=== PATIENT | male | born 1960 | race Caucasian/White ===

== ENCOUNTER 2024-02-21 10:26 | Outpatient (OUT) | payer OTHER, SELFPAY ==
--- NOTE | 2024-02-21 10:37 | ECG_ITS ---
[facility] Test Date: 2024-02-21 Pat Name: HANNAH CHAMBERS Department: Room: - Gender: Male Housing Inspector: : 1960 Requested By: PATIENCE FUENTES Order Number: [id number] Reading MD: PATIENCE FUENTES Measurements Intervals [place] Rate: 102 P: CT: QRS: 49 QRSD: 121 T: 216 QT: 360 QTc: 469 Interpretive Statements ATRIAL FIBRILLATION WITH RAPID VENTRICULAR RESPONSE Chronic ST/T wave changes anterolateral leads. Electronically Signed On 02-21-2024 20:55:17 EST by PATIENCE FUENTES
== END 2024-02-21 10:27 | disposition home or self-care (01) ==
LOC: CARD 10:30
PROVIDERS: PCP Internal Medicine; Visit Provider Internal Medicine
DX: I49.9 Cardiac arrhythmia, unspecified (principal)
CPT/HCPCS: 93005

== ENCOUNTER 2024-09-19 13:36 | Outpatient (OUT) | payer OTHER, SELFPAY ==
--- OUTSIDE RECORDS SUMMARY | 2024-09-19 13:38 | XMS_ITS | Clinical Summary ---
Author Organization [facility] Address [address] [place] [address] Care Team Providers Care Shearer Helper Name Role Phone Julio Ceballos DO Primary Care Provider [phone] Allergies No known active allergies Medications amLODIPine (Norvasc) 5 MG tablet 9 Active metoprolol succinate XL (Toprol-XL) 50 MG 24 hr tablet Take 50 mg by mouth in the morning and 50 mg before bedtime. 3 Active pravastatin (Pravachol) 40 MG tablet Take 40 mg by mouth at bedtime. 3 Active ciclopirox (Penlac) 8 % solutionIndicat ions:Onychomyco sis of Toenails Apply topically at bedtime Applied daily to affected nails. Remove once a week with alcohol swab 10 mL 1 5 10/05/19 25 Active Active Problems Problem Noted Date Diagnosed Date Glaucoma suspect of both eyes 03/16/2023 Age-related nuclear cataract of both eyes 2023 Dry eyes 03/16/2023 Encounters Date Type Department Care Team Description 09/04/2024 3:10 PM EDT Office Visit [facility] [address] [place] [address] Irving Loyola, DPM FACFAS Ingrowing nail, left great toe (Primary Dx); Abscess of great toenail of left foot; Abscess of great toenail of right foot; Ingrowing nail, right great toe; Tinea unguium 09/04/2024 Abstract [facility] [address] [place] [id number] Irving Loyola R, DPM FACFAS 09/04/2024 Bamboo flowsheet [facility] [address] [place] [address] DolLito hustoneem R, DPM FACFAS from Last 3 Months Family History Medical History Relation Name Comments Melanoma Neg Hx Multiple myeloma Neg Hx Social History Tobacco Use Types Packs/Day Years Used Date Smoking Tobacco: Never Smokeless Tobacco: Never Tobacco Cessation:Counseling Given: Not Answered Sex and Gender Information Value Date Recorded Sex Assigned at Not on file Legal Sex Male 8:35 PM EDT Gender Identity Not on file Sexual Orientation Not on file Last Filed Vital Signs Vital Sign Reading Time Taken Comments Blood Pressure - - Pulse - - Temperature - - Respiratory Rate - - Oxygen Saturation - - Inhaled Oxygen Concentration - - Weight 116 kg (255 lb) 09/04/2024 3:10 PM EDT Height 182.9 cm (6') 09/04/2024 3:10 PM EDT Body Mass Index 34.58 09/04/2024 3:10 PM EDT Plan of Treatment Upcoming Encounters Date Type Department Care Team (Late st Contact Info) Description 09/25/2024 3:30 PM EDT Office Visit [facility] [address] [place] [phone] Irving Loyola R, DPM FACFAS [address] [place] [address] 05/14/2025 4:05 PM EDT Office Visit [facility] [address] [place] [address] Minoo Bronson APRN-NOTCHER [address] [place] [address] Health Maintenance Due Date Last Done Comments CT Colonography 1960 Colonoscopy 1960 Colorectal Cancer Screening 1960 FIT-DNA 1960 FIT 1960 FOBT 1960 Sigmoidoscopy 1960 Influenza Vaccine (#1) 2024 3, 11/09/2021, 12/31/2020, Additional history exists Insurance [employer] Care Teams Shearer Helper Relationship Specialty Start Date End Date Julio Ceballos DO [address] [facility] [place] [address] PCP - General Internal Medicine 09/04/24
--- OUTSIDE RECORDS SUMMARY | 2024-09-19 13:38 | XMS_ITS | Clinical Summary ---
Author Organization [facility] Address [address] [place] [address] Phone Care Team Providers Care Automatic Pad Making Machine Operator Name Role Phone Julio Ceballos DO Primary Care Provider [phone] Fozia Cornelius MD Unavailable Allergies No known active allergies Medications pravastatin (Pravachol) 40 mg tabletIndications: Mixed hyperlipidemia Take 1 tablet (40 mg) by mouth once daily at bedtime. 90 tablet 3 03/13/19 25 026 Active apixaban (Eliquis) 5 mg tabletIndications: Paroxysmal atrial fibrillation (Multi) Take 1 tablet (5 mg) by mouth 2 times a day for 21 days. 42 tablet 03/25/19 25 Active amLODIPine (Norvasc) 10 mg tabletIndications: Essential hypertension Take 1 tablet (10 mg) by mouth once daily. 90 tablet 3 03/25/19 25 026 Active levothyroxine (Synthroid, Levoxyl) 25 mcg tabletIndications: Hypothyroidism Take 1 tablet (25 mcg) by mouth early in the morning.. Take on an empty stomach at the same time each day, either 30 to 60 minutes prior to breakfast 30 tablet 1 05/10/19 25 Active dofetilide (Tikosyn) 250 mcg capsuleIndications :Atrial fibrillation, persistent (Multi) Take 1 capsule (250 mcg) by mouth 2 times a day. 180 capsule 3 05/24/19 25 026 Active metoprolol succinate XL (Toprol-XL) 50 mg 24 hr tabletIndications: Paroxysmal atrial fibrillation (Multi),Cardiomyop athy, hypertrophic (Multi) Take 1 tablet (50 mg) by mouth once daily. Do not crush or chew. 08/27/19 25 026 Active aspirin 81 mg EC tablet Take 1 tablet (81 mg) by mouth once daily. 025 Discontin ued(Thera py completed ) metoprolol succinate XL (Toprol-XL) 50 mg 24 hr tabletIndications: Essential hypertension Take 1 tablet (50 mg) by mouth 2 times a day. 180 tablet 3 03/13/19 25 025 Discontin ued(Dose adjustmen t) Active Problems Problem Noted Date Diagnosed Date BMI 35.0-35.9,adult 05/23/2024 High risk medication use 05/19/2024 Encounter for medication review and counseling 0 03/25/2024 Encounter to discuss treatment options Encounter to establish care with new doctor 03/15 Atrial fibrillation, persistent (Multi) 03/25/19 A-fib (Multi) 03/13/2024 Never smoked tobacco 03/13/2024 Myocardial infarction (Multi) 04/04/2023 Lightheadedness 04/04/2023 Drug-induced erectile dysfunction 04/04/2023 Chest pain 04/04/2023 Glaucoma suspect of both eyes 03/16/2023 Age-related nuclear cataract of both eyes 2023 Cardiomyopathy, hypertrophic (Multi) 03/09/2023 Essential hypertension 02/09/2023 Hyperlipidemia 02/09/2023 LVH (left ventricular hypertrophy) 02/09/2023 Resolved Problems Problem Noted Date Diagnosed Date Resolved Date Obesity (BMI 30.0-34.9) 03/09/202308/12 Encounters Date Type Department Care Team Description 08/26/2024 3:00 PM EDT [facility] [address] [place] [address] Nomi Lutz, DO Paroxysmal atrial fibrillation (Multi); Cardiomyopathy, hypertrophic (Multi); High risk medication use; BMI 35.0-35.9,adult; Never smoked tobacco 08/26/2024 Travel 07/30/2024 Patient Outreach [facility] [address] [place] [address] Nery AndersonJAGUAR 07/03/2024 Patient Outreach [facility] [address] [place] [address] Nery Anderson LPN from Last 3 Months Immunizations Immunization Administration Dates Next Due Flu vaccine (IIV4), preserva tive free *Check age/dose* 11/15/2022,12/31/2020 Flu vaccine, quadrivalent, n o egg protein, age 6 month or greater (FLUCELVAX) 11/09/2021 Influenza, Split (incl. josé manuel fied surface antigen) 11/09/2021,12/11/2019,02/19/2019 Influenza, Unspecified 02/12/2019 Influenza, injectable, quadrivalent 12/11/2019,0 02/19/2019 Zoster vaccine, recombinant, adult (SHINGRIX) 01/12/2020 Zoster, live 01/12/2020 Family History Medical History Relation Name Comments CABG Father Diabetes Father Hypertension Father malignant neoplasm of prostate Father Atrial fibrillation Mother Heart disease Mother Relation Name Status Comments Father Mother Social History Tobacco Use Types Packs/Day Years Used Date Smoking Tobacco: Never Smokeless Tobacco: Never Tobacco Cessation:Counseling Given: Yes Alcohol Use Standard Drinks/Week Comments Yes 0 (1 standard drink = 0.6 oz pur e alcohol) [facility] Utilities Answer Date Recorded In the past 12 months has e [employer], gas, oil, or water [employer] threatened to shut off services in your home? No 05/05/2024 Humiliation, Afraid, Rape, and Kick questionnair e Answer Date Recorded Within the last year, have y ou been afraid of your partner or ex-partner? No 05/05/2024 Within the last year, have y ou been humiliated or emotionally abused in other ways by your partner or ex-partner? No Within the last year, have y ou been kicked, hit, slapped, or otherwise physically hurt by your partner or ex-partner? No 05/05/2024 Within the last year, have y ou been raped or forced to have any kind of sexual activity by your partner or ex-partner? No 05/05/2024 AUDIT-C Answer Date Recorded Q1: How often do you have a drink containing alcohol? Never 05/05/2024 Q2: How many drinks containi ng alcohol do you have on a typical day when you are drinking? Patient does not drink Q3: How often do you have si x or more drinks on one occasion? Never 05/05/2024 Overall Financial Resource Strain (CARDIA) Answe r Date Recorded How hard is it for you to pa y for the very basics like food, housing, medical care, and heating? Not hard at all 05/05/2024 PHQ-2 Answer Date Recorded Patient Health Questionnaire-2 Score 0 05/05/2024 Hunger Vital Sign Answer Date Recorded Within the past 12 months, y ou worried that your food would run out before you got the money to buy more. Never true 05/06/19 25 Within the past 12 months, t he food you bought just didn't last and you didn't have money to get more. Never true 05/05/2024 PRAPARE - Transportation Answer Date Re corded In the past 12 months, has l ack of transportation kept you from medical appointments or from getting medications? No 04/13 In the past 12 months, has l ack of transportation kept you from meetings, work, or from getting things needed for daily living? No 05/05/2024 Housing Stability Vital Sign Answer Cody e Recorded In the last 12 months, was t here a time when you were not able to pay the mortgage or rent on time? No 05/05/2024 In the past 12 months, how m any times have you moved where you were living? 1 05/05/2024 At any time in the past 12 m [facility], were you homeless or living in a [facility] (including now)? No 05/05/2024 Sex and Gender Information Value Date Recorded Sex Assigned at Not on file Legal Sex Male 2:36 AM EST Gender Identity Not on file Sexual Orientation Not on file Last Filed Vital Signs Vital Sign Reading Time Taken Comments Blood Pressure 118/80 08/26/2024 3:33 PM EDT Pulse 50 08/26/2024 3:33 PM EDT Temperature 36.5 C (97.7 F) 05/08/2024 10:49 AM EDT Respiratory Rate 18 05/08/2024 10:49 AM EDT Oxygen Saturation 98% 05/08/2024 10:49 AM EDT Inhaled Oxygen Concentration - - Weight 119 kg (262 lb) 08/26/2024 3:33 PM EDT Height 182.9 cm (6') 08/26/2024 3:33 PM EDT Body Mass Index 35.53 08/26/2024 3:33 PM EDT Plan of Treatment Upcoming Encounters Date Type Department Care Team (Late st Contact Info) Description 09/23/2024 2:40 PM EDT Office Visit [facility] [address] [facility] [address] [place] [address] [place] [address] [place] [address] 03/04/2025 8:00 AM EST Office Visit [facility] [address] [facility] [address] [place] [address] [address] Cadet, SENIOR SALESFORCE DEVELOPER-GI PHYSICIAN [address] [facility] [address] [place] [address] 05/19/2025 1:00 PM EDT Office Visit [facility] [address] [facility] [address] [place] [address] Fozia Cornelius MD [address] [facility] Office [address] [place] [address] Health Maintenance Due Date Last Done Comments CT Colonography 1960 Colonoscopy 1960 Colorectal Cancer Screening 1962 FIT-DNA (Cologuard) 1960 FIT 1960 HIV Screening 1960 Lipid Panel 1960 Sigmoidoscopy 1962 Hepatitis C Screening 1980 Pneumococcal Vaccine (1 of 2 - PCV) 1981 DTaP/Tdap/Td Vaccines (1 - Tdap) 1984 PSA Prostate Cancer Screening 2012 MMR Vaccines (1 of 1 - Standard series) 02/09/2020 Zoster Vaccines (2 of 2) 03/08/2020 01/12/2020, 12/15 RSV High Risk: (Elderly (60+) or Population) (1 - Risk 60-74 years 1-dose series) 2022 COVID-19 Vaccine ( season) 2023 01/29/2021, 05/22/2020, 04/24/2020 Yearly Adult Physical 11/17/2023 11/15/2022 Influenza Vaccine (#1) 2024 , 11/09/2021, 11/09/2021, Additional history exists TSH Level 05/05/2025 05/05/2024 Diabetes Screening 05/08/2025 05/08/2024, 0 05/07/2024, 05/06/2024, Additional history exists HIB Vaccines Aged Out No longer eligi ble based on patient's age to complete this topic HPV Vaccines Aged Out No longer eligi ble based on patient's age to complete this topic Hepatitis A Vaccines Aged Out No long er eligible based on patient's age to complete this topic Hepatitis B Vaccines Aged Out No long er eligible based on patient's age to complete this topic IPV Vaccines Aged Out No longer eligi ble based on patient's age to complete this topic Meningococcal Vaccine Aged Out No antonella perez eligible based on patient's age to complete this topic Rotavirus Vaccines Aged Out No longer eligible based on patient's age to complete this topic Procedures Procedure Name Priority Date/Time Associated Diagnosis Comments ECG 12-LEAD Routine 08/26/2024 3:00 PM EDT Paroxysmal atrial fibrillation (Multi) BASIC METABOLIC PANEL Routine 05/08/2024 3:26 AM EDT TSH WITH REFLEX TO FREE T4 IF ABNORMAL STAT 05/05/2024 7:51 AM EDT from Last 3 Months or Most Recently Relevant to Health Maintenance Results * ECG 12 Lead (08/26/2024 3:00 PM EDT) Narrative [facility]ACS - 08/26/2024 4:47 PM EDT Sinus bradycardia, anterolateral T wave inversions, abnormal ECG Nomi Lutz DO ECG ORDERABLES Final Resul t CPACS * Basic metabolic panel (05/08/2024 3:26 AM EDT) Glucose 92 74 - 99 mg/dL LAB CHEMISTRY METHOD 05/08/2024 4:34 AM EDT [facility] Sodium 138 136 - 145 mmol/L LAB CHEMISTRY METHOD 05/08/2024 4:34 AM EDT [facility] Potassium 3.9 3.5 - 5.3 mmol/L LAB CHEMISTRY METHOD 05/08/2024 4:34 AM EDT [facility] Chloride 105 98 - 107 mmol/L LAB CHEMISTRY METHOD 05/08/2024 4:34 AM EDT [facility] Bicarbonate 25 21 - 32 mmol/L LAB CHEMISTRY METHOD 05/08/2024 4:34 AM EDT [facility] Anion Gap 12 10 - 20 mmol/L LAB CHEMISTRY METHOD 05/08/2024 4:34 AM EDT [facility] Urea Nitrogen 18 6 - 23 mg/dL LAB CHEMISTRY METHOD 05/08/2024 4:34 AM EDT [facility] Creatinine 0.90 0.50 - 1.30 mg/dL LAB CHEMISTRY METHOD 05/08/2024 4:34 AM EDT [facility] eGFR >90 >60 mL/min/1.7 3m*2 LAB CHEMISTRY METHOD 05/08/2024 4:34 AM EDT [facility] Comment: Calculations of estimated GFR are performed using the 2020 CKD-EPI Study Refit equation without the race variable for the IDMS-Traceable creatinine methods. https://jasn.asnjournals.org/content/early//ASN.3412942873 Calcium 9.2 8.6 - 10.3 mg/dL LAB CHEMISTRY METHOD 05/08/2024 4:34 AM EDT [facility] Blood Venous blood specimen / Unknown Venipuncture / Unknown 05/08/2024 3:26 AM EDT 05/08/2024 4:07 AM EDT Aggie Kline APRN-GI PHYSICIAN LAB BLOOD ORDERABLES Final R esult [facility] [address] [place] [address] * (ABNORMAL) TSH with reflex to Free T4 if abnormal (05/05/2024 7:51 AM EDT) Thyroid Stimulating Hormone 5.84(H) 0.44 - 3.98 mIU/L LAB IMMUNOASSAY METHOD 05/05/2024 8:50 AM EDT [facility] Blood Venous blood specimen / Unknown Venipuncture / Unknown 05/05/2024 7:51 AM EDT 05/05/2024 8:12 AM EDT Narrative [facility] - 05/05/2024 8:50 AM EDT TSH testing is performed using different testing methodology at [facility] than at other legacy [facility]. Direct result comparisons should only be made within the same method. Aggie Kline APRN-GI PHYSICIAN LAB BLOOD ORDERABLES Final R esult [facility] [address] [place] [address] from Last 3 Months or Most Recently Relevant to Health Maintenance Insurance [facility] [facility] [employer] Advance Directives For more information, please contact: [phone] (Available ) * Full Code (Latest Code Status on File) Date Activated Date Inactivated Comments 05/05/2024 9:08 AM Question Answer Comments Plan of Care: Code Status Discussion Completed Decision Maker: Patient Care Teams Automatic Pad Making Machine Operator Relationship Specialty Start Date End Date Julio Ceballos DO [address] [place] [address] PCP - General Internal Medicine 09/24/23 Fozia Cornelius MD [address] [facility] [address] [place], [place] [id number] Rx Specialist Electrophysiology 03/13/24
--- OUTSIDE RECORDS SUMMARY | 2024-09-19 13:38 | XMS_ITS | Encounter Summary ---
Author Organization [facility] Address [address] [place] [address] Care Team Providers Care Cold Meat Chef Name Role Phone Julio Ceballos DO Primary Care Provider [phone] Encounter Details Date Type Department Care Team (Late st Contact Info) Description 09/04/2024 Abstract [facility] [address] [place] [address] Irving Loyola, DPM FACFAS [address] [place] [address] Social History Tobacco Use Types Packs/Day Years Used Date Smoking Tobacco: Never Smokeless Tobacco: Never Sex and Gender Information Value Date Recorded Sex Assigned at Not on file Legal Sex Male 8:35 PM EDT Gender Identity Not on file Sexual Orientation Not on file documented as of this encounter Plan of Treatment Upcoming Encounters Date Type Department Care Team (Late st Contact Info) Description 09/25/2024 3:30 PM EDT Office Visit [facility] [address] [place] [address] Irving Loyola R, DPM FACFAS [address] [place] [address] 05/14/2025 4:05 PM EDT [facility] [address] [place] [address] Minoo Bronson, HAMPER MAKER MACHINE-AIR CONDITIONING MECHANIC [address] [place] [address] documented as of this encounter Visit Diagnoses Not on filedocumented in this encounter Care Teams Cold Meat Chef Relationship Specialty Start Date End Date Julio Ceballos DO [address] [facility] [place] [address] PCP - General Internal Medicine 09/04/24 documented as of this encounter
[2024-09-19 14:40] LABS: Thyroid Stimulating Hormone 2.372 uIU/mL (0.358-3.740)
== END 2024-09-19 13:37 | disposition home or self-care (01) ==
LOC: LAB 13:36
PROVIDERS: PCP Internal Medicine; Visit Provider Internal Medicine
DX: T46.2X1A Poisoning by other antidysrhythmic drugs, accidental (unintentional), initial encounter (principal); E03.2 Hypothyroidism due to medicaments and other exogenous substances
CPT/HCPCS: 36415; 84439; 84443

== ENCOUNTER 2024-12-15 08:01 | Outpatient (OUT) | payer OTHER, SELFPAY ==
--- OUTSIDE RECORDS SUMMARY | 2024-12-05 19:01 | XMS_ITS | Continuity of Care Document ---
Author Organization [facility] Address [address] [place] [address] Phone Care Team Providers Care Manager Bakery Name Role Phone Tucker Julio LION Primary Care Provider [phone] Julio Ceballos DO Attending Provider [phone] Care Teams Patient Care Team Team Status: Active Member Role/Relationship Status Dates Julio Ceballos DO Primary Care Provider Active Patient Care Team Team Status: Active Member Role/Relationship Status Dates Julio Ceballos DO Primary Care Provider Active Start: September 19, 2024 Patience Florence ProviderActiveStart: September 19, 2024 Patient Care Team Team Status: Inactive Member Role/Relationship Status Dates Julio Ceballos DO Primary Care Provider Active Start: December 05, 2024 End: December 05Patience Alejandra ProviderActiveStart: December 05, 2024 End: December 05, 2024 Chief Complaint and Reason for Visit Chief Complaint Admit Date Foot Pain December 05, 2024 3 :42pm Reason for Visit Admit Date Chronic anticoagulation December 05 3:42pm Metatarsalgia of left foot December 05, 2024 3:42pm Allergies, Adverse Reactions, Alerts Allergen Type Severity Reaction Last Updated Verified Status No Known Allergies Allergy Unknown December 05, 2024 3:46pmYesActive Social History Smoking Status Status Start Date End Date Date of Observa tion Never smoked tobacco (finding) August 06, 2018 3:36pm Observation Status Observation Response Date of Response Legal Sex Male (finding) Sex Assigned At BirthMaleApril 1960 Family History Relationship Condition Age at Onset Recorded Date/T yohana father History of coronary artery bypass surgery Unknown fatherDeceasedUnknownHeart diseaseUnknown Problems Active Problems Problem Diagnosis/Recorded Date Onset Date Status C omments 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, 2024 1: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 Unk nown Active Screening PSA (prostate specific antigen)January 27, 2024 1:59pmUnknownActive PSA: 2.49 - 07/2019, 1.95 - 07/2020, 2.4 - 10/2021, 2.97 - 10/2022, 3.06 - 12/2023 Acute sinusitisJanuary 2024 3:37pmUnknownActiveAtrial fibrillationJanuary 2024 11:50pmUnknownActiveDCCV -Chronic anticoagulationOctober 2024 4:30pmUnknownActiveWellness examinationDecember 2023 1:57pmUnknownActive HypercholesterolemiaDecember 2023 2:04pmUnknownActiveHypertensionJune 2018 1:55amUnknownActiveCardiomyopathyJanuary 2024 11:48pmUnknown ActiveEcho: LVEF 75%, ADRIEN, RVSP 36 (apical hypertrophic cardiomyopathy) - 02/2023,Cardiac MR: nonobstructive hypertrophic cardiomyopathy - 03/2023,Stress Echo: no ischemia, no increased gradient - 03/2023Inactive/Resolved Problems Problem Diagnosis/Recorded Date Onset Date Status C omments Hyperlipidemia August 06, 2018 1:56am Unknown Resolved Non-STEMI (non-ST elevated myocardial infarction)August 06, 2018 3:05pmUnknown Resolved Medications Medication Status Dose Units Route Directions Qty Days Refills S tart Date Stop Date End Date Reason(s) Instructions Adherence Azithromycin 250 mg tablet Discontinued 250 MG PO .COMPLEX 6 5 0 Ja joseyary 2024 1:54pm June 26, 2024 3:10pm2 tabs on first day followed by 1 tab on days 2-5 Levothyroxine 25 mcg vyyiyqnYglmdwqctcqb77CRFLMFwbjaXxp 2024 12:00amMay 2024 11:01amApixaban (Eliquis) 5 mg bggqfiQbeukc6LFKMNivbm dailyMa2024 12:00amComplies with drug therapyDofetilide 250 mcg lvelhrpBvfaae196KIVKT Twice dailyMay 2024 12:00amComplies with drug therapyAmlodipine 10 mg rkblyhCsftgxoyrzga91RXMHYzcyv21272Igou 2024 5:32pmAugust 2024 4:18pm Pravastatin 40 mg qfrmcgGnpmeu34IXXFAcoppqp08836Zphm 2024 5:33pmComplies with drug therapyMetoprolol Succinate 50 mg tablet extended release 24 hrActive 63DWUORxzrk973813Qiid 2024 8:38amComplies with drug therapyAmlodipine 10 mg tabletActive0.ROUTE.BFEBGIS649Mvtsvl 2024 4:18pmTAKE 1 TABLET DAILY Complies with drug therapyPravastatin (Pravachol) 40 mg ScbinmSmffdqhjusak48HACE [facility]timeSelect [facility] 2018 12:00amJanuary 2024 11:07amBenazepril (Lotensin) 10 mg GekfzhIpdkuzhoatqp42EIPWEncomVzjc 2018 12:00amJune 2018 6:25pm Metoprolol Succinate (Toprol Xl) 25 mg tablet extended release 24 hrDiscontinued 31JSCMOublp750186Kgxk 2018 12:00amJuly 2024 8:38amAspirin 81 mg Tablet,Delayed Release (Dr/Ec)Uhrmzm22HDDEMbuik680Cago 2018 12:00am Complies with drug therapyAzithromycin 250 mg frqhvmTjhqgvwznmoa816OTKB.COMPLEX6 50January 2024 1:00amJanuary 2024 1:54pm2 tabs on first day followed by 1 tab on days 2-5Amlodipine 10 mg bfhgrxNqexpajslgyl80SVGLTvdooVtx 2024 12:00amJune 2024 5:33pmLevothyroxine 25 mcg jfdjbjXzttjgxpadkw09BRDQNYmkig 54876Hok 2024 12:00amMay 2024 11:03amLevothyroxine 25 mcg tablet Udjrlx54SHQHNRjnuj68589Ffg 2024 11:02amComplies with drug therapy Pravastatin 40 mg fqwvxlWezqnllinbzq93DIZJYmijlya20948Ombvkxr 2024 11:06am July 23, 2024 5:33pmPrednisone 20 mg vxwqhiRuzdhs65YJQMDlazr qoujb7984Caufovc 2024 12:00amComplies with drug therapy Immunizations Immunization Event Date Not Given Reason Dose Number Radio Director Lot Number Reason(s) Given Vaccine Information Statement (VIS) Detail Administration Location influenza, unspecified formulation February 19, 2019 influenza, unspecified formulationOctober 2019influenza, unspecified formulationNovember 2020influenza, unspecified formulationSeptember 2021Quadrivalent InfluenzaOctober 2022Shingles (Zoster)January 12, 2020 Relevant Diagnostic Tests and/or Laboratory Data Laboratory Results Test Collection Date/Time Result Date/Time Result Interpretation Reference Range Result Comment Performing Site Free Thyroxine September 19, 2024 1:44pm September 19, 2024 1: 44pm 1.01 ng/dL 0.76-1.46Thyroid Stimulating Hormone 3rd GenAugus2024 1:44pmAugust 2024 1:44pm2.372 u[iU]/mL0.358-3.740 Vital Signs Vital Reading Result Reference Range Collection Date/Time Height 72 [in_i] December 05, 2024 3:85mwOsrsnu075.74 kgOctflag[facility] 2024 3:45pmHeart Rate93 /sxj28-430Snsfarq 2024 3:45pmBP Spmkgbxa951 mm[Hg]100-140Octflag[facility] 2024 3:45pmBP Ojnhqoebc42 mm[Hg]60-100Octflaget [facility] hospital 2024 3:45pmBMI (Body Mass Index)35.8 kg/g0Yeobxvd 2024 3:45pm Advance Directives Advance Directive Response Recorded Date/ Time Advance Directives No August 06 1:02am Insurance Providers Guarantor Cristian Feliciano Address [address] [facility] [address]Rmrucbd Info.Home Phone: Coverage Status Update:2024 Payer Group Member ID Coverage Type Subscriber Relationship to Subscriber Effective Date Expiration Date MMO Id: [id number] [facility] Id: [id number] [address] [facility] [address] Home Phone: [facility] [id number] [facility] Id: [id number] [address] [facility] [address] [facility] Phone: [facility]: [id number] Encounters Encounter Location(s) Arrival/Admit Date Discharge/Departure Date Discharge/Departure Disposition Provider(s) Non-patient / Non-visit -[facility] Professional Slick Altamirano ust 2024 1:44pm KANNAN Florenceeparted Physician/Provider Office [facility] 20[facility] 3:42pmOctober 2024 11:59pmDischarged to home care or self care (routine discharge)Julio Ceballos , Recent Diagnosis Onset Date Admit Date Chronic anticoagulation Unknown December 05, 2024 3:42pm Metatarsalgia of left foot Unknown Octob er 2024 3:42pm Assessments Diagnosis Onset Date Resolution Status Admit Date Chronic anticoagulation acuteOctober 2024 3:42pmMetatarsalgia of left footnoneactiveOctober 2024 3:42pm Plan of Treatment Author [facility]os [facility] 2024 4:33pmAvoid use of NSAIDs, due to increased bleeding risk w/ ongoing Eliquis use. Instructed on stretching exercises. Instructed to always wear shoes. Instructed to use Voltaren Gel and Tylenol. Prescribed Prednisone bid x 5 days. - take w/ food Update office next week Future Tests Future scheduled test information is unavailable Pending Tests Pending diagnostic test information is unavailable Future Visits Future appointment information is unavailable Future Procedures Future procedure information is unavailable Future Medications Future medication information is unavailable Patient Instructions Patient instructions are unavailable
--- OUTSIDE RECORDS SUMMARY | 2024-12-15 08:07 | XMS_ITS | Clinical Summary ---
Author Organization [facility] Address [address] [place] [address] Phone Care Team Providers Care Director Of Restaurant Operations Name Role Phone Tucker Julio Ciara LION Primary Care Provider [phone] Fozia Cornelius MD Unavailable Allergies No known active allergies Medications MedicationSigDispense QuantityRefillsLast FilledStart DateEnd DateStatus pravastatin (Pravachol) 40 mg tablet Indications:Mixed hyperlipidemiaTake 1 tablet (40 mg) by mouth once daily at bedtime. 90 tablet 501/6Active apixaban (Eliquis) 5 mg tablet Indications:Paroxysmal atrial fibrillation (Multi)Take 1 tablet (5 mg) by mouth 2 times a day for 21 days. 42 tablet 5Active amLODIPine (Norvasc) 10 mg tablet Indications:Essential hypertensionTake 1 tablet (10 mg) by mouth once daily. 90 tablet 502/6Active levothyroxine (Synthroid, Levoxyl) 25 mcg tablet Indications:HypothyroidismTake 1 tablet (25 mcg) by mouth early in the morning.. Take on an empty stomach at the same time each day, either 30 to 60 minutes prior to breakfast 30 tablet 5Active dofetilide (Tikosyn) 250 mcg capsule Indications:Atrial fibrillation, persistent (Multi)Take 1 capsule (250 mcg) by mouth 2 times a day. 180 capsule 504/6Active metoprolol succinate XL (Toprol-XL) 50 mg 24 hr tablet Indications:Paroxysmal atrial fibrillation (Multi),Cardiomyopathy, hypertrophic (Multi)Take 1 tablet (50 mg) by mouth once daily. Do not crush or chew. 90 tablet 3095010/14/2025ctive Active Problems ProblemNoted DateDiagnosed DateBMI 35.0-35.9,adult05/23/2024High risk medication use05/19/2024Encounter for medication review and jzncdpipyw88/11/2025Encounter to discuss treatment hirrwom9303/25/2024Encounter to establish care with new bdqifp0903/25/2024trial fibrillation, wyqdujcbwj30/11/2025-fib03/13/2024Never smoked kkzjxvn9703/13/2024Myocardial cuklvmwufa01/21/9145Ikvjrcefdqmdpvu46/21/2024 Drug-induced erectile azhjpjnzikg03/21/2024hest pain04/04/2023Glaucoma suspect of both eyes03/16/2023ge-related nuclear cataract of both eyes03/16/2023 Cardiomyopathy, ogwdtrtcllxx57/26/2024Essential wfntyicjcsga37/29/2023 Afznlayfvdjhlz69/29/2023LVH (left ventricular hypertrophy)02/09/2023 Resolved Problems ProblemNoted DateDiagnosed DateResolved DateObesity (BMI 30.0-34.9)03/09/2023 08/26/2024 Encounters DateTypeDepartmentCare CdweFtjdpjgwtob28/02/2025Refill [facility] [address] [facility] [address] [place] [address] Nora Becerra LPN Paroxysmal atrial fibrillation (Multi); Cardiomyopathy, hypertrophic (Multi)09/23/2024 2:40 PM EDTOffice Visit [facility] [address] [place] [address] Adrian Sousa, DO Hypertrophic cardiomyopathy (Multi) (Primary Dx)09/23/2024Orders Only [facility] [address] [place] [address] Marian Aguila RN LVH (left ventricular hypertrophy) (Primary Dx)09/23/2024Travelfrom Last 3 Months Immunizations ImmunizationAdministration DatesNext DueFlu vaccine (IIV4), preservative free *Check age/dose*11/15/2022,12/31/2020Flu vaccine, quadrivalent, no egg protein, age 6 month or greater (FLUCELVAX)11/09/2021Influenza, Split (incl. purified surface antigen)11/09/2021,12/11/2019,02/19/2019Influenza, Mnvvduegphr88/01/2020 Influenza, injectable, mhzxooymdetr39/29/2020,02/19/2019Zoster vaccine, recombinant, adult (SHINGRIX)01/12/2020Zoster, live01/12/2020 Family History Medical HistoryRelationNameCommentsCABGFatherDiabetesFatherHypertensionFather malignant neoplasm of prostateFatherAtrial fibrillationMotherHeart diseaseMother RelationNameStatusCommentsFatherMother Social History Tobacco UseTypesPacks/DayYears UsedDateSmoking Tobacco: NeverSmokeless Tobacco: Never Tobacco Cessation:Counseling Given: Yes Alcohol UseStandard Drinks/WeekCommentsYes0 (1 standard drink = 0.6 oz pure alcohol)[facility] UtilitiesAnswerDate RecordedIn the past 12 months has the [employer], gas, oil, or water Convrrt threatened to shut off services in your home?No 05/05/2024Humiliation, Afraid, Rape, and Kick questionnaireAnswerDate Recorded Within the last year, have you been afraid of your partner or ex-partner?No 05/05/2024Within the last year, have you been humiliated or emotionally abused in other ways by your partner or ex-partner?No05/05/2024Within the last year, have you been kicked, hit, slapped, or otherwise physically hurt by your partner or ex-partner?No05/05/2024Within the last year, have you been raped or forced to have any kind of sexual activity by your partner or ex-partner?No05/05/2024 AUDIT-CAnswerDate RecordedQ1: How often do you have a drink containing alcohol? Never05/05/2024Q2: How many drinks containing alcohol do you have on a typical day when you are drinking?Patient does not drink05/05/2024Q3: How often do you have six or more drinks on one occasion?Never05/05/2024Overall Financial Resource Strain (CARDIA)AnswerDate RecordedHow hard is it for you to pay for the very basics like food, housing, medical care, and heating?Not hard at all 05/05/2024PHQ-2AnswerDate RecordedPatient Health Questionnaire-2 Score0 05/05/2024Hunger Vital SignAnswerDate RecordedWithin the past 12 months, you worried that your food would run out before you got the money to buymore.Never true05/05/2024Within the past 12 months, the food you bought just didn't last and you didn't have money to get more.Never true05/05/2024PRAPARE - TransportationAnswerDate RecordedIn the past 12 months, has lack of transportation kept you from medical appointments or from getting medications?No 05/05/2024In the past 12 months, has lack of transportation kept you from meetings, work, or from getting things needed for daily living?No05/05/2024 Housing Stability Vital SignAnswerDate RecordedIn the last 12 months, was there a time when you were not able to pay the mortgage or rent on time?No05/05/2024In the past 12 months, how many times have you moved where you were living?1 05/05/2024t any time in the past 12 months, were you homeless or living in a half-way (including now)?No05/05/2024Sex and Gender InformationValueDate Recorded Sex Assigned at BirthNot on fileLegal NolYsfm66/26/2022 2:36 AM ESTGender IdentityNot on fileSexual OrientationNot on file Last Filed Vital Signs Vital SignReadingTime TakenCommentsBlood Fdvtxafp342/8608 2:31 PM EDT Tsaie184209/23/2024 2:31 PM RWOPfoeejmpdcb33.5 ??C (97.7 ??F)05/08/2024 10:49 AM EDTRespiratory Jeuq673005/08/2024 10:49 AM EDTOxygen Ylzyizzgyl82%09/23/2024 2:31 PM EDTInhaled Oxygen Concentration--Hvqxcm590 kg (266 lb)09/23/2024 2:31 PM EDT Mghyii760.9 cm (6')09/23/2024 2:31 PM EDTBody Mass Index36.0809/23/2024 2:31 PM EDT Plan of Treatment DateTypeDepartmentCare Team (Latest Contact Info)Dbjuoagspbm93/21/2026 [address] [facility] [address] [facility] [address] [place] [address] [address] Cadet, RANGE AIDE-AMBULATORY CARE NURSE [address] [facility] [address] [place] [address] 05/19/2025 1:00 PM EDTOffice Visit [facility] [address] [facility] [address] [place] [address] Fozia Cornelius MD [address] [facility] [place], [place] [id number] 09/28/2025 2:40 PM EDTOffice Visit [facility] [address] [place] [address] [place] [address] [place] [address] Health MaintenanceDue DateLast DoneCommentsCT Ysrasimlxrhy21/30/1963Colonoscopy 1960Colorectal Cancer Mahzkftbq38/30/1963FIT-DNA (Cologuard)1960FIT 1960HIV Thjgxlxsq06/30/1963Lipid Panel1960 2728Axipvwygvueqd88/30/1963 Hepatitis C Ccfrvayxv17/30/1981Pneumococcal Vaccine (1 of 2 - PCV)1981 DTaP/Tdap/Td Vaccines (1 - Tdap)1984PSA Prostate Cancer Screening 2012RSV High Risk: (Elderly (60+) or Population) (1 - Risk 50-74 years 1-dose series)2012MMR Vaccines (1 of 1 - Standard series)02/09/2020 Zoster Vaccines (2 of 2), 01/12/2020Yearly Adult Physical 10/05/313064/05/2022Influenza Vaccine (#1)/05/2022, 11/09/2021, 11/09/2021, Additional history existsCOVID-19 Vaccine (2024- season) /, 05/22/2020, 04/24/2020TSH Level Diabetes Mnxbtkftr18/, 05/07/2024, 05/06/2024, Additional history existsHIB VaccinesAged OutNo longer eligible based on patient's age to complete this topicHPV VaccinesAged OutNo longer eligible based on patient's age to complete this topicHepatitis A VaccinesAged OutNo longer eligible based on patient's age to complete this topicHepatitis B VaccinesAged OutNo longer eligible based on patient's age to complete this topicIPV VaccinesAged OutNo longer eligible based on patient's age to complete this topicMeningococcal VaccineAged OutNo longer eligible based on patient's age to complete this topic Rotavirus VaccinesAged OutNo longer eligible based on patient's age to complete this topic Procedures Procedure NamePriorityDate/TimeAssociated DiagnosisCommentsBASIC METABOLIC PANEL Sjdxfnt4705/08/2024 3:26 AM EDT TSH WITH REFLEX TO FREE T4 IF IKRNBMRROPBO92/24/2025 7:51 AM EDT from Last 3 Months or Most Recently Relevant to Health Maintenance Results * Basic metabolic panel (05/08/2024 3:26 AM EDT)ComponentValueRef RangeTest MethodAnalysis TimePerformed AtPathologist MvuvivrmrVpzzbww4872 - 99 mg/dL LAB CHEMISTRY METHOD 05/08/2024 4:34 AM [facility] YNZMcmkqx235270 - 145 mmol/L LAB CHEMISTRY METHOD 05/08/2024 4:34 AM [facility] LABPotassium3.93.5 - 5.3 mmol/L LAB CHEMISTRY METHOD 05/08/2024 4:34 AM [facility] YISMfpdenxs75399 - 107 mmol/L LAB CHEMISTRY METHOD 05/08/2024 4:34 AM [facility] DBMNfmhfrgwddi7778 - 32 mmol/L LAB CHEMISTRY METHOD 05/08/2024 4:34 AM [facility] LABAnion Xsu6601 - 20 mmol/L LAB CHEMISTRY METHOD 05/08/2024 4:34 AM [facility] LABUrea Mxddtomo256 - 23 mg/dL LAB CHEMISTRY METHOD 05/08/2024 4:34 AM [facility] LABCreatinine0.900.50 - 1.30 mg/dL LAB CHEMISTRY METHOD 05/08/2024 4:34 AM [facility] LABeGFR>90>60 mL/min/1.73m*2 LAB CHEMISTRY METHOD 05/08/2024 4:34 AM [facility] LABComment: Calculations of estimated GFR are performed using the 2020 CKD-EPI Study Refit equation without therace variable for the IDMS-Traceable creatinine methods. https://jasn.asnjournals.org/content/early//ASN.6671032193 Calcium9.28.6 - 10.3 mg/dL LAB CHEMISTRY METHOD 05/08/2024 4:34 AM [facility] LABSpecimen (Source)Anatomical Location / LateralityCollection Method / VolumeCollection TimeReceived TimeBlood Venous blood specimen / UnknownVenipuncture / Kuruaal8905/08/2024 3:26 AM EDT 05/08/2024 4:07 AM EDT Narrative Authorizing ProviderResult TypeResult StatusAmy Bob [facility] BLOOD ORDERABLESFinal ResultPerforming OrganizationAddressCity/State/ZIP CodePhone Number [facility] [address] [place] [address] * (ABNORMAL) TSH with reflex to Free T4 if abnormal (05/05/2024 7:51 AM EDT) ComponentValueRef RangeTest MethodAnalysis TimePerformed AtPathologist SignatureThyroid Stimulating Hormone5.84(H)0.44 - 3.98 mIU/L LAB IMMUNOASSAY METHOD 05/05/2024 8:50 AM [facility] LABSpecimen (Source)Anatomical Location / LateralityCollection Method / VolumeCollection TimeReceived TimeBlood Venous blood specimen / UnknownVenipuncture / Xgkmhcs1705/05/2024 7:51 AM EDT 05/05/2024 8:12 AM EDT Narrative [facility] - 05/05/2024 8:50 AM EDT TSH testing is performed using different testing methodology at [facility] than at other [facility]. Direct result comparisons should only be made within the same method. Authorizing ProviderResult TypeResult StatusAggie Kline APRN-[facility] BLOOD ORDERABLESFinal ResultPerforming OrganizationAddressCity/State/ZIP CodePhone Number [facility] [address] [place] [address] from Last 3 Months or Most Recently Relevant to Health Maintenance Insurance Advance Directives For more information, please contact: [phone] (Available ) * Full Code (Latest Code Status on File) Date ActivatedDate InactivatedComments05/05/2024 9:08 AMQuestionAnswerComments Plan of Care:* Code Status Discussion Completed Decision Maker:* Patient Care Teams Team MemberRelationshipSpecialtyStart DateEnd Date Julio Ceballos DO [address] [place] [address] PCP - GeneralInternal Medicine09/24/23 Fozia Cornelius MD [address] [facility] Medical Office [address], [facility] [address] [place], [place] [id number] CardiologistElectrophysiology03/13/24
--- OUTSIDE RECORDS SUMMARY | 2024-12-15 08:07 | XMS_ITS | Clinical Summary ---
Author Organization [facility] Address [address] [place] [address] Care Team Providers Care Neuro Urologist Name Role Phone Julio Ceballos DO Primary Care Provider [phone] Allergies No known active allergies Medications MedicationSigDispense QuantityRefillsLast FilledStart DateEnd DateStatus amLODIPine (Norvasc) 5 MG tablet 10/30/2018Active metoprolol succinate XL (Toprol-XL) 50 MG 24 hr tablet Take 50 mg by mouth in the morning and 50 mg before bedtime.06/03/2022ctive pravastatin (Pravachol) 40 MG tablet Take 40 mg by mouth at bedtime.02/23/2022ctive Active Problems ProblemNoted DateDiagnosed DateGlaucoma suspect of both eyes03/16/2023ge- related nuclear cataract of both eyes03/16/2023ry eyes03/16/2023 Encounters DateTypeDepartmentCare TukcWecxhwnxceh98/14/2025 3:30 PM EDTOffice Visit [facility] [address] [place] [address] Irving Loyola R, DPM FACFAS Abscess of great toenail of left foot (Primary Dx); Abscess of great toenail of right foot09/25/2024amboo [facility] [address] [place] [address] DolYuriy hustonm R, DPM FACFAS from Last 3 Months Family History Medical HistoryRelationNameCommentsMelanomaNeg HxMultiple myelomaNeg Hx Social History Tobacco UseTypesPacks/DayYears UsedDateSmoking Tobacco: NeverSmokeless Tobacco: Never Tobacco Cessation:Counseling Given: Not Answered Sex and Gender InformationValueDate RecordedSex Assigned at BirthNot on file Legal CvwIpka4506/12/2022 8:35 PM EDTGender IdentityNot on fileSexual Orientation Not on file Last Filed Vital Signs Vital SignReadingTime TakenCommentsBlood Pressure--Pulse--Temperature-- Respiratory Rate--Oxygen Saturation--Inhaled Oxygen Concentration--Awleum865 kg (255 lb)09/25/2024 3:33 PM DGJIltzjk761.9 cm (6')09/25/2024 3:33 PM EDTBody Mass Index34.58009/25/2024 3:33 PM EDT Plan of Treatment DateTypeDepartmentCare Team (Latest Contact Info)Kylrmsgbewz53/02/2026 4:00 PM EDTOffice Visit [facility] [address] [place] [phone] Minoo Bronson, [employer] OPERATOR [address] [place] [address] Health MaintenanceDue DateLast DoneCommentsCT Ltasccwlmldd62/30/1963Colonoscopy 1962Colorectal Cancer Mjoweejao98/30/1963FIT-DNA1962FIT1962 FOBT1962 5432Zktpyggxvygnv16/30/1963MMR Vaccines (1 of 1 - Standard series) 06/12/1963DTaP/Tdap/Td Vaccines (1 - Tdap)1969COVID-19 Vaccine ( season)/, 05/22/2020, 04/24/2020Influenza Vaccine (#1) /05/2022, 11/09/2021, 12/31/2020, Additional history existsHIB VaccinesAged OutNo longer eligible based on patient's age to complete this topic HPV VaccinesAged OutNo longer eligible based on patient's age to complete this topicHepatitis A VaccinesAged OutNo longer eligible based on patient's age to complete this topicHepatitis B VaccinesAged OutNo longer eligible based on patient's age to complete this topicIPV VaccinesAged OutNo longer eligible based on patient's age to complete this topicMeningococcal B VaccineAged OutNo longer eligible based on patient's age to complete this topicMeningococcal VaccineAged OutNo longer eligible based on patient's age to complete this topicPneumococcal Vaccine: Pediatrics (0 to 5 Years) and At-Risk Patients (6 to 64 Years)Aged Out No longer eligible based on patient's age to complete this topicRotavirus VaccinesAged OutNo longer eligible based on patient's age to complete this topic Insurance Care Teams Team MemberRelationshipSpecialtyStart DateEnd Date Julio Ceballos DO [address] [facility] [place] [phone] PCP - GeneralInternal Medicine09/04/24
--- NOTE | 2024-12-15 08:10 | XR_ITS ---
[facility] [place] [id number] Patient Name: HANNAH CHAMBERS MRN: [id number] date: 1960 Sex: M Assigned Patient Location: [facility] Current Patient Location: [facility] Accession/Order Number: [id number] Exam Date: 12/15/2024 08:15 Report Date: 12/15/2024 09:09 At the request of: PATIENCE FUENTES DO Procedure: XR foot LT min 3V LEFT FOOT - 3 views CLINICAL DATA: Left distal metacarpal pain for the past few weeks. No injury. COMPARISON: None AP, lateral and oblique views were obtained. There is osteopenia. There is no acute fracture or dislocation. There are minor degenerative changes including posterior and plantar calcaneal spurs. There are no significant soft tissue abnormalities. XR/XR foot LT min 3V IMPRESSION: NO ACUTE BONY FINDINGS. Impression dictated by: Marina Latham M.D. 12/15/2024 9:09 AM Dictation Location: [place] [address] Electronically authenticated by: [id number] Date: 12/15/2024 09:09
--- OUTSIDE RECORDS SUMMARY | 2024-12-15 08:12 | XMS_ITS | CCD ---
Author Organization [facility]Sy[facility] Care Team Providers Care Grounds Crew Supervisor Name Role Phone Seun Gallardo Unavailable Unavailable NONE, XXXX Unavailable Unavailable Julio Fuentes Unavailable Unavailable Unavailable GINA, DR MORIN Admitting Unavailable GINA, DR MORIN Attending Unavailable GINA, DR MORIN Primary Care Unavailable GINA, DR MORIN Attending Unavailable GINA, DR MORIN Consulting Unavailable GINA, DR MORIN Primary Care Unavailable GINA, DR MORIN Admitting Unavailable Julio Fuentes Unavailable DO Julio Fuentes Primary Care Provider Community, Outreach Attending Provider Community, Outreach Admitting Unavailable Community, Outreach Attending Unavailable Julio Fuentes Primary Care Unavailable Julio Fuentes DO Primary Care Provider Julio Fuentes DO Primary Care Provider AKHIL CADET Referring Unavailable JULIO FUENTES Primary Care Unavailable ANA SOUSA Referring Unavailable JULIO FUENTES Primary Care Unavailable Julio Fuentes DO Primary Care Provider Fozia Ramos MD Unavailable Fozia Ramos MD Unavailable FOZIA RAMOS Admitting Unavailable FOZIA RAMOS Attending Unavailable JULIO FUENTES Primary Care Unavailable KEYUR REYEZ Consulting Unavailable Unavailable Primary Care Provider UnavailNery Villasenor LPN Unavailable [phone] Julio Fuentes DO Primary Care Provider ANA SOUSA Attending Unavailable JULIO FUENTES Primary Care Unavailable NOMI LUTZ Referring Unavailable JULIO FUENTES Primary Care Unavailable NOMI LUTZ Referring Unavailable JULIO FUENTES Primary Care Unavailable NOMI LUTZ Attending Unavailable NOMI LUTZ Referring Unavailable JULIO FUENTES Primary Care Unavailable FOZIA RAMOS Attending Unavailable NOMI LUTZ Referring Unavailable JULIO FUENTES Primary Care Unavailable FOZIA RAMOS Referring Unavailable JULIO FUENTES Primary Care Unavailable FOZIA RAMOS Attending Unavailable JULIO FUENTES Primary Care Unavailable NOMI LUTZ Attending Unavailable NOMI LUTZ Referring Unavailable JULIO FUENTES Primary Care Unavailable RAINE BRONSON Attending Unavailable GILBERTO FISHER Attending Unavailable GILBERTO FISHER Attending Unavailable Julio Fuentes DO Primary Care Provider Julio Fuentes DO Attending Provider Medications Current Medications MedicationDrug Class(es)DatesSig (Normalized)Sig (Original)acetaminophen 325 mg oral tablet (1 source)Start: 48-32-5233dzrv 1 tablet by mouth every four hours as needed amiodarone hydrochloride 200 mg oral tablet (2 sources)AntiarrhythmicStart: 03-13-2024 End: 22-61-4578agxm 2 tablets by mouth once dailyamiodarone (Pacerone) 200 mg tablet Indications: Paroxysmal atrial fibrillation (Multi) Take 2 tablets (400 mg) by mouth once daily. 180 tablet 03/13/2024 03/25/2024 Discontinued (Therapy completed)amLODIPine 10 mg oral tablet (20 sources)Dihydropyridine Calcium Channel BlockerStart: 19-95-7083Vtcqtwbwqe 10 mg tablet Active 0 .ROUTE .COMPLEX 90 3 October 12, 2024 4:18pm TAKE 1 TABLET DAILY Complies with drug therapyStart: 04-91-9433skgi 10 mg by mouth once daily10 mg, oral, Daily, First dose on Sun05/06/24 at 0900Start: 03-25-2024 End: 01-31-0346wsli 1 tablet by mouth once dailyAmlodipine 10 mg tablet Discontinued 10 MG PO Daily June 30, 2024 12:00am July 23, 2024 5:33pmStart: 95-49-5486impm 1 tablet by mouth once dailyamLODIPine Besylate 2.5 MG Oral Tablet TAKE 1 TABLET DAILY DIRECTED. Quantity: 30 Refills: 3 Ordered: 12-Apr-2021 Akhil Perdue Start : 12-Apr-2021 ActiveStart: 10-30-2018 End: 62-33-9146loHKGHGwpd (Norvasc) 5 MG tablet 10/30/2018 Activeapixaban 5 mg oral tablet (12 sources)Factor Xa InhibitorStart: 03-13-2024 End: 02-02-5584lmcb 1 tablet by mouth twice dailyApixaban (Eliquis) 5 mg tablet Active 5 MG PO Twice daily June 26, 2024 12:00am Complies with drugtherapy aspirin 81 mg delayed release oral tablet (20 sources)Platelet Aggregation Inhibitor, Nonsteroidal Anti-inflammatory Drug Start: 08-06-2018 End: 94-28-5078vero 1 tablet by mouth once dailyAspirin 81 mg Tablet,Delayed Release (Dr/Ec) Active 81 MG PO Daily August 06, 2018 12:00am Complies with drug therapyciclopirox 80 mg/ml topical solution (5 sources)Start: 09-04-2024 End: 06-42-8266ejrfvmahmi (Penlac) 8 % solution Indications: Onychomycosis of Toenails Apply topically at bedtime Applied daily to affected nails. Remove once a week with alcohol swab 10 mL 1 09/04/2024 10/04/2024 Activedocusate sodium 100 mg oral capsule (1 source)Start: 84-35-2519rlvnlnmgcp 0.25 mg oral capsule (8 sources)AntiarrhythmicStart: 05-05-2024 End: 96-99-6219lksq 1 capsule by mouth twice dailyDofetilide 250 mcg capsule Active 250 MCG PO Twice daily June 26, 2024 12:00am Complies with drug therapy melatonin 3 mg oral tablet (1 source)Start: hr metoprolol succinate 50 mg extended release oral tablet (20 sources)beta-Adrenergic BlockerStart: 08-26-2024 End: 59-07-7210pqfo 1 tablet by mouth once dailyMetoprolol Succinate 50 mg tablet extended release 24 hr Active 50 MG PO Daily August 27, 2024 8:38am Complies with drug therapyStart: 03-09-2023 End: 56-17-4950mfug 1 tablet by mouth twice dailymetoprolol succinate XL (Toprol-XL) 50 mg 24 hr tablet Indications: Essential hypertension Take 1 tablet (50 mg) by mouth 2 times a day. 180 tablet 3 03/13/2024 08/26/2024 Discontinued (Dose adjustment)Start: 86-35-7254qxny 1 tablet by mouth every twenty-four hours in the morningmetoprolol succinate XL (Toprol-XL) 50 MG 24 hr tablet Take 50 mg by mouth in the morning and 50 mgbefore bedtime. 06/03/2022 ActiveStart: 12-56-3118aabg 1 tablet by mouth every twenty-four hoursMetoprolol Succinate ER 50 MG 1 tablet Orally Once a day Feb, ActiveStart: 91-45-1890biwj 1 tablet by mouth twice dailyMetoprolol Succinate ER 25 MG Oral Tablet Extended Release 24 Hour Take 1 tablet twice daily Quantity: 60 Refills: 6 Ordered: 12-Apr-2021 Akhil Perdue Start : 12-Apr-2021 Active patient will call when neededStart: 08-06-2018 End: 22-22-1603dkiw 1 tablet by mouth once dailyMetoprolol Succinate (Toprol Xl) 25 mg tablet extended release 24 hr Discontinued 25 MG PO Daily 3030 01August 06, 2018 12:00am August 27, 2024 8:38amtake 1 tablet by mouth every twenty- four hours, then take 0.5 tablet by mouth once dailyMetoprolol Succinate ER 25 MG Oral Tablet Extended Release 24 Hour TAKE 1 AND 1/2 TABLETS DAILY Quantity: 135 Refills: 3 Ordered: 03-Jan-2021 Nomi Lutz DO Activepravastatin sodium 40 mg oral tablet (20 sources)HMG-CoA Reductase InhibitorStart: 02-16-6238wmao 40 mg by mouth once daily40 mg, oral, Nightly, First dose on Sun05/05/24 at 2100Start: 08-06-2018 End: 57-31-7807kfgv 1 tablet by mouth at bedtimePravastatin 40 mg tablet Discontinued 40 MG PO Bedtime February 21, 2024 11:06am July 5:33pmpredniSONE 20 mg oral tablet (1 source)Start: 83-22-8426hfqh 1 tablet by mouth twice dailyPrednisone 20 mg tablet Active 20 MG PO Twice daily 10 December 05, 2024 12:00am Complies withdrug therapysildenafil 25 mg oral tablet (20 sources)Phosphodiesterase 5 InhibitorStart: 12-02-2022 End: 48-78-1945yhln 1 tablet by mouth once daily as neededsildenafil (Viagra) 25 mg tablet TAKE ONE TABLET BY MOUTH ONCE DAILY NEEDED FOR ED FOR 30 DAYS 03/13/2024 Discontinued (Discontinued by another clinician) End: 27-48-3835broaqbfvee (Viagra) 50 mg tablet Take 1 tablet (50 mg) by mouth if needed. 02/25/2024 Discontinued (Duplicate order)Viagra 50 MG Oral Tablet TAKE DIRECTED. Quantity: 0 Refills: 0 Ordered: 22-Jun-2021 DO Active Completed/Discontinued Medications MedicationDrug Class(es)DatesSig (Normalized)Sig (Original)azithromycin 250 mg oral tablet (2 sources)Macrolide AntimicrobialStart: 03-11-2024 End: 73-92-5969Ppfokokfxdcn 250 mg tablet Discontinued 250 MG PO .COMPLEX 6 5 0 March 14, 2024 1:54pm June 26, 2024 3:10pm 2 tabs on first day followed by 1 tab on days 2-enazepril hydrochloride 10 mg oral tablet (2 sources)Angiotensin Converting Enzyme InhibitorStart: 08-06-2018 End: 43-96-8504cpsg 1 tablet by mouth once dailyBenazepril (Lotensin) 10 mg Tablet Discontinued 10 MG PO Daily August 06, 2018 12:00am August 06, 2018 6:25pmgadoterate meglumine (Dotarem) 0.5 mmol/mL contrast injection 40 mL (1 source)Start: 03-20-2023 End: 74-73-9352hepznwlpep meglumine (Dotarem) 0.5 mmol/mL contrast injection 40 mLlevothyroxine sodium 0.025 mg oral tablet (8 sources)l-ThyroxineStart: 06-26-2024 End: 54-45-4100ctyx 1 capsule by mouth once dailyLevothyroxine 25 mcg capsule Discontinued 25 MCG PO Daily June 26, 2024 12:00am June 30, 2024 11:01amStart: 05-09-2024 End: 28-97-4480dlrq 1 tablet by mouth once dailyLevothyroxine 25 mcg tablet Discontinued 25 MCG PO Daily 30 30 0 June 30, 2024 12:00am June 30, 2024 11:03amStart: 60-51-9045vgrb 1 dose by mouth every hour25 mcg, oral, Daily, First dose on Sun05/06/24 at 0600, Enteral feedings are held 1 hour pre and post dose.LORazepam 1 mg oral tablet (4 sources)BenzodiazepineStart: 02-22-2023 End: 02-42-8599HLAouckqw (Ativan) 1 mg tablet Indications: Claustrophobia Patient should take 1 tablet one hour prior to MRI & may repeat once 15 minutes before MRI. 2 tablet 0 02/22/2023 04/06/2023 Discontinued (Med List Cleanup) perflutren protein A microsphere (Optison) injection 0.5 mL (1 source)Start: 02-14-2023 End: 77-92-5776jzmdpypeai protein A microsphere (Optison) injection 0.5 mL microencapsulated potassium chloride 20 meq extended release oral tablet (1 source)Start: 05-07-2024 End: 35-67-052875 mEq, oral, Once, On Sun05/07/24 at 1000, For 1 dose, Best given with food and plenty of water tominimize gastric irritation. Do not crush or chew. Problems Active Problems Problem ClassificationProblemDateDocumented DateEpisodic/ChronicAcute myocardial infarction (16 sources)Myocardial infarction; Translations: [Non-ST elevation (NSTEMI) myocardial infarction]Onset: 663202-99-7824LntxjysGrodeph dysrhythmias (20 sources)Atrial fibrillation; Translations: [Unspecified atrial fibrillation] Onset: 236331-44-8590YkumzenFsvtzxn on above:DCCV -Cataract (20 sources)Bilateral age-related nuclear cataracts; Translations: [Age-related nuclear cataract, bilateral]Onset: 434657-09-4523KlyrkvmUlbasffxkub and hemorrhagic disorders (2 sources)Thrombocytopenic disorder; Translations: [Thrombocytopenia, unspecified]ChronicDeficiency and other anemia (1 source)Anemia, unspecifiedEpisodicDisorders of lipid metabolism (20 sources)Hyperlipidemia; Translations: [Other and unspecified hyperlipidemia] Onset: 88-61-9601OiyiybpDqblknmzy hypertension (20 sources)Hypertensive disorder; Translations: [Unspecified essential hypertension]Onset: 50-79-5368BpvpctoSmuichic (20 sources)Preglaucoma, unspecified, bilateral; Translations: [Preglaucoma, unspecified]Onset: 870611-96-9448HsdeafuEnimipc (2 sources)Onychomycosis due to dermatophyte ; Translations: [Tinea unguium] 17-48-9834VsyguskkLexei aftercare (2 sources)Long-term current use of anticoagulant; Translations: [skilled nursing (current) use of anticoagulants]54-70-5570NlppfijkYwthy and ill-defined heart disease (20 sources)Left ventricular hypertrophy; Translations: [Cardiomegaly]Onset: 067776-62-8581OtcwmxoIjtmz and ill-defined heart disease (4 sources)Cardiomegaly; Translations: [Cardiomegaly]Onset: 30-65-5623Gxqrumw Other and unspecified benign neoplasm (2 sources)Melanocytic nevi of other parts of face; Translations: [Benign neoplasm of skin of other and unspecified parts of face]17-84-1819VmhnjtbkGuxom and unspecified benign neoplasm (2 sources)Melanocytic nevus of trunk; Translations: [Melanocytic nevi of trunk] 74-59-5689HpsvpudrVtscd and unspecified benign neoplasm (2 sources)Melanocytic nevus of upper limb; Translations: [Melanocytic nevi of unspecified upper limb, including shoulder]98-97-5848LbtxobnsUcrlb circulatory disease (2 sources)Spider nevus; Translations: [Nevus, non-neoplastic]21-98-2207Opjeelpw Other connective tissue disease (1 source)Metatarsalgia of left foot; Translations: [Metatarsalgia, left foot] 47-63-7094NukmomnlVgmnp male genital disorders (15 sources)Drug-induced erectile dysfunction; Translations: [Impotence of organic origin]Onset: 24-67-8457FfdywpwNhinb nutritional; endocrine; and metabolic disorders (15 sources)Obesity; Translations: [Obesity, unspecified]ChronicOther nutritional; endocrine; and metabolic disorders (15 sources)Body mass index 30+ - obesity; Translations: [Body Mass Index 34.0- 34.9, adult]Onset: 761682-50-0731NcffqfeYttpw nutritional; endocrine; and metabolic disorders (2 sources)Body mass index (BMI) 35.0-35.9, adult; Translations: [Body mass index (BMI) 35.0-35.9, adult]Onset: 63-74-4021ZbvxmqtUwzhi nutritional; endocrine; and metabolic disorders (2 sources)Body mass index (BMI) 36.0-36.9, adult; Translations: [Body mass index (BMI) 36.0-36.9, adult]Onset: 40-03-9827VdhmcliLeueo screening for suspected conditions (not mental disorders or infectious disease) (6 sources)Encounter for screening for malignant neoplasm of prostate; Translations: [Electrocardiogram abnormal]Onset: 76-85-0544TgwddmosVmcltyr on above:PSA: 2.49 - 07/2019, 1.95 - 07/2020, 2.4 - 10/2021, 2.97 - 10/2022, 3.06 - 12/2023Other skin disorders (2 sources)Seborrheic keratosis; Translations: [Other seborrheic keratosis] 32-37-1770AeflxszlLqxsl skin disorders (2 sources)Lentiginosis; Translations: [Other melanin hyperpigmentation] 87-85-2945YhvdfmjtIjiul skin disorders (2 sources)Inflamed seborrheic keratosis; Translations: [Inflamed seborrheic keratosis]58-47-2800ZioygoodXfvnf skin disorders (4 sources)Ingrowing great toenail; Translations: [Ingrowing nail]09-04-2024 EpisodicOther upper respiratory infections (1 source)Acute sinusitis; Translations: [Acute sinusitis, unspecified] 46-65-4423UpqyuyepCpwm-; endo-; and myocarditis; cardiomyopathy (except that caused by tuberculosis or sexually transmitted disease) (20 sources)Hypertrophic cardiomyopathy; Translations: [Other hypertrophic cardiomyopathy]Onset: 39-50-2544JmoxbiuGblcvzj on above:Echo: LVEF 75%, ADRIEN, RVSP 36 (apical hypertrophic cardiomyopathy) - 02/2023,Cardiac MR: nonobstructive hypertrophic cardiomyopathy - 03/2023,Stress Echo: no ischemia, no increased gradient - oisoning by other medications and drugs (1 source)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; Translations: [Poisoning by other antidysrhythmic drugs, accidental (unintentional), initial encounter]06-26-2024 EpisodicSkin and subcutaneous tissue infections (8 sources)Abscess of big toe; Translations: [Cellulitis of left toe]09-04-2024 EpisodicThyroid disorders (3 sources)Hypothyroidism; Translations: [Hypothyroidism, unspecified]Onset: 592404-70-5686BksuttvQdspbtbijplp (4 sources)Other persistent atrial fibrillation; Translations: [Other persistent atrial fibrillation]Onset: 06-39-9579Jghzfqoxpvco (1 source)Obesity, class 1; Translations: [Obesity, class 1]Onset: 03-09-2023 Past or Other Problems Problem ClassificationProblemDateDocumented DateEpisodic/Chronic Administrative/social admission (20 sources)Drug therapy finding; Translations: [Other specified counseling] Onset: 322000-73-4533MvypoomeUiietehalk associated with dizziness or vertigo (12 sources)Lightheadedness; Translations: [Dizziness and giddiness]Onset: 410708-95-8623SvpmybpyMhtiwzjlskm chest pain (12 sources)Chest pain; Translations: [Chest pain, unspecified]Onset: 04-04-2023 60-19-3857UtiptimdJftrh aftercare (7 sources)Taking high risk medication; Translations: [Other filler leaf cutter long (current) drug therapy]Onset: 130206-31-4823QuilhvsxBvjow aftercare (2 sources)Other penitentiary (current) drug therapy; Translations: [Other penitentiary (current) drug therapy]Onset: 18-27-3599KhjvkjjiHwtjg eye disorders (9 sources)Dry eyes; Translations: [Dry eye syndrome of bilateral lacrimal glands]Onset: 456744-62-0637HygcokzaYsftm hematologic conditions (7 sources)Protein level - finding; Translations: [Other abnormal blood chemistry] Resolved: 61-68-9834WvjxlgcsAyewo hematologic conditions (4 sources)Raised cardiac enzyme or marker; Translations: [Other abnormal blood chemistry] Resolved: 99-35-8645RsidtfatWsiqt nutritional; endocrine; and metabolic disorders (15 sources)Obese class I; Translations: [Obesity, unspecified]Onset: 03-09-2023 Resolved: 618899-93-9802YmnkhfjJfbzxiqe codes; unclassified (11 sources)History of palpitations; Translations: [Personal history of other diseases of circulatory system] Resolved: 91-08-1381RgltfwtbLcjqofcz codes; unclassified (11 sources)Never smoked tobacco; Translations: [Other specified health status] Onset: 216325-68-5026MihhgaqlNtlvfjui codes; unclassified (2 sources)Other specified health status; Translations: [Other specified health status]Onset: 43-18-3814EntmitjvPzsoqrbwqkto (4 sources)Imaging result normal; Translations: [Normal coronary angiogram] Unclassified (11 sources)Never smoked tobacco; Translations: [Never a smoker]Unclassified (1 source)Obesity, class 1; Translations: [Obesity, class 1]Onset: 03-13-2024 Viral infection (1 source)COVID-19 Results Test NameValueInterpretationReference RangeFacilityLaboratory - Chemistry and Chemistry - challengeOrdered By: Julio Fuentes on 08-47-0549Spvm T4 [Mass/Vol] 1.01 ng/dL0.76-1.46[facility] HospitalTSH Qn2.372 m[IU]/L 0.358-3.740[facility] HospitalECG 12 Leadon 33-50-3111Fwoqj bradycardia, anterolateral T wave inversions, abnormal ECGCPACSUnTriHealth Work Phone: ECG 12 lead (Clinic Performed)on 48-63-1561Rqc scan [facility] Work Phone: [facility] Work Phone: No Panel Informationon 36-04-4288CRPN HealthcareBasic metabolic 2000 panelon 26-49-9436Tpvah gap [Moles/Vol]12 mmol/L10 - 20 mmol/L [facility] CenterCalcium [Mass/Vol]9.2 mg/dL8.6 - 10.3 mg/dL [facility] CenterChloride [Moles/Vol]105 mmol/L98 - 107 mmol/L [facility] CenterCO2 [Moles/Vol]25 mmol/L21 - 32 mmol/L [facility] CenterCreatinine [Mass/Vol]0.9 mg/dL0.50 - 1.30 mg/dL [facility] CentereGFR- PINFUniversParkview Whitley Hospital Comment on above:Calculations of estimated GFR are performed using the 2020 CKD- EPI Study Refit equation without therace variable for the IDMS-Traceable creatinine methods. https://jasn.asnjournals.org/content//ASN.0009174301 Glucose [Mass/Vol]92 mg/dL74 - 99 mg/dLUnTriHealth Potassium [Moles/Vol]3.9 mmol/L3.5 - 5.3 mmol/[facility] Sodium [Moles/Vol]138 mmol/L136 - 145 mmol/[facility] Urea nitrogen [Mass/Vol]18 mg/dL6 - 23 mg/dLPremier Health [facility] Anion gap [Moles/Vol]12 mmol/OEbgpba69-52WdwvvznjmwOhioHealth Riverside Methodist HospitalComment on above:Performed By: #### [id number] #### MAXIMO CABELLO ([id number]) [facility] (EMC) [address], [place] [address]Ahsegpe [Mass/Vol]9.2 mg/dLNormal8.6-10.3UnOhioHealth Riverside Methodist HospitalComment on above:Performed By: #### 21355-7 #### DAVIDIBELILUCA CABELLO ([id number]) [facility] ([facility]) [address], [place] [address]Qnxvqwqv [Moles/Vol]105 mmol/UJudrjn97-384OpdxntcdksOhioHealth Riverside Methodist HospitalComment on above:Performed By: #### 38021-4 #### DAVIDIBSANDY CABELLO ([id number]) [facility] ([facility]) [address], [place] [address]DC4 [Moles/Vol]25 mmol/DGtnrzh86-45PkuskwegybOhioHealth Riverside Methodist HospitalComment on above:Performed By: #### 10583-9 #### MAXIMO CABELLO ([id number]) [facility] ([facility]C) [address] [place] [address]Vsqzmebyzm [Mass/Vol]0.90 mg/dLNormal0.50-1.30UnOhioHealth Riverside Methodist HospitalComment on above:Performed By: #### 15687-6 #### MAXIMO CABELLO ([id number]) [facility] ([facility]) [address] [place] [address]NMC/1.73 sq M.predicted MDRD (S/P/Bld) [Vol rate/Area] mL/min/{1.73_m2}Normal>60UnOhioHealth Riverside Methodist HospitalComment on above:Result Comment: Calculations of estimated GFR are performed using the 2020 CKD-EPI Study Refit equation without the race variable for the IDMS-Traceable creatinine methods. https://jasn.asnjournals.org/content/early/ASN.4888370779Totevpktg By: #### [id number] #### MAXIMO CABELLO ([id number]) [facility] ([facility]C) [address] [place] [address] 639[address]Rxytlpd [Mass/Vol]92 mg/pOPhttkb69-07CbxttjjyheOhiohealth Arthur G.H. Bing, Md, Cancer CenterComment on above:Performed By: #### 96979-3 #### MAXIMO CABELLO ([id number]) [facility] ([facility]) [address] [place] [address]Erqdnuhqs [Moles/Vol]3.9 mmol/LNormal3.5-5.3Ohio[facility] Md, Cancer CenterComment on above:Performed By: #### 81528-8 #### MAXIMO CABELLO ([id number]) [facility] ([facility]C) [address] [place] [address] 21[address]Mwbkyx [Moles/Vol]138 mmol/HGgryec322-652UmeeulzhlpOhioHealth Riverside Methodist HospitalComment on above:Performed By: #### 29093-7 #### ANAIBELILUCA CABELLO ([id number]) [facility] ([facility]) [address] [place], [place] [address]Svks nitrogen [Mass/Vol]18 mg/dLNormal-[facility], Md, Cancer CenterComment on above:Performed By: #### 11885-9 #### ANAIBELILUCA GRIMESCATRACHO NICK ([id number]) [facility] ([facility]) [address] [place], [place] [address]CGG 12-LEADon 29-90-6671SSZ 12-LEADVentricular Rate 56 Atrial Rate 56 P-R Interval 192 QRS Duration 116 Q-T Interval 508 QTC Calculation(Bazett) 490 P [place] 31 R [place] -2 T [place] 135 QRS Count 9 Q Onset 211 P Onset 115 P Offset 185 T Offset 465 QTC Fredericia 496 Diagnosis Sinus bradycardia Left ventricular hypertrophy with QRS widening and repolarization abnormality Prolonged QT Abnormal ECG When compared with ECG of 08-MAY-2024 06:48, (unconfirmed) Premature atrial complexes are no longer Present Confirmed by Jose David Cha ([id number]) on 05/12/2024 1:52:31 PMNMunicipal Hospital and Granite ManorECG 12-LEADVentricular Rate 54 Atrial Rate 54 P-R Interval 196 QRS Duration 108 Q-T Interval 502 QTC Calculation(Bazett) 476 P [place] 39 R [place] -2 T [place] 129 QRS Count 9 Q Onset 210 P Onset 112 P Offset 179 T Offset 461 QTC Fred[place]ia 484 Diagnosis Sinus bradycardia with Premature atrial complexes Left ventricular hypertrophy with repolarization abnormality Abnormal ECG When compared with ECG of 07-MAY-2024 22:54, (unconfirmed) Premature atrial complexes are now Present Confirmed by Jose David Cha ([id number]) on 05/12/2024 1:48:32 PMNMunicipal Hospital and Granite ManorMagnesiumon 26-73-6112Pifrnmebx [Mass/Vol]2.05 mg/dL1.60 - 2.40 mg/dLPremier Health Upper Valley Medical CenterMagnesium [Mass/Vol]2.05 mg/dLNormal 1.60-2.40Ohiohealth [facility], Md, Cancer CenterComment on above:Performed By: #### 49586-1 #### MAXIMO CABELLO ([id number]) [facility] ([facility]) [address] [place] [address]Og Panel Informationon 45-68-2053Czufj TubeHold for add-ons. [facility] CenterComhenry ford [facility] on above:Auto resulted.[facility] CenterInterpretation and review of laboratory resultsNormal [facility] CenterUnTriHealthBasic metabolic 1999 panelon 17-05-3391Outcy gap [Moles/Vol]11 mmol/L10 - 20 mmol/L [facility] CenterCalcium [Mass/Vol]9.1 mg/dL8.6 - 10.3 mg/dL [facility] CenterChloride [Moles/Vol]107 mmol/L98 - 107 mmol/L [facility] CenterCO2 [Moles/Vol]25 mmol/L21 - 32 mmol/L [facility] CenterCreatinine [Mass/Vol]0.94 mg/dL0.50 - 1.30 mg/dLUnTriHealtheGFR- PINFUniMercy Health St. Elizabeth Youngstown HospitalComment on above:Calculations of estimated GFR are performed using the 2020 CKD-EPI Study Refit equation without therace variable for the IDMS- Traceable creatinine methods. https://jasn.asnjournals.org/content/early//ASN.9904537212 Glucose [Mass/Vol]105 mg/mVTyfp12 - 99 mg/dLUnTriHealth Interpretation and review of laboratory resultsAbnoalUKettering Health TroyPotassium [Moles/Vol]3.8 mmol/L3.5 - 5.3 mmol/LUnTriHealthSodium [Moles/Vol]139 mmol/L136 - 145 mmol/[facility] Medical CenterUrea nitrogen [Mass/Vol]20 mg/dL6 - 23 mg/dLUnTriHealthAnion gap [Moles/Vol]11 mmol/MDfwqrt82-84LeckxdfwbiOhioHealth Riverside Methodist HospitalComment on above:Performed By: #### 70388-0 #### MAXIMO CABELLO ([id number]) [facility] ([facility]) [address] [place] [address] [id number] [Mass/Vol]9.1 mg/dLNormal8.6-10.3Ohio[facility], Md, Cancer CenterComment on above:Performed By: #### 07533-4 #### MAXIMO CABELLO (28531) [facility] ([facility]) [address] [place] [address] 54583Nfjwhlci [Moles/Vol]107 mmol/LKiewsf04-414GdmpssrzstOhioHealth Riverside Methodist HospitalComment on above:Performed By: #### 23575-7 #### MAXIMO CABELLO ([id number]) [facility] ([facility]) [address] [place] [address] 06227XW2 [Moles/Vol]25 mmol/GQnhswy85-42IyodsuijyvOhioHealth Riverside Methodist HospitalComment on above:Performed By: #### 92957-1 #### MAXIMO CABELLO ([id number]) [facility] ([facility]) [address] [place] [address] 43201Ulmcyvszlk [Mass/Vol]0.94 mg/dLNormal0.50-1.30Ohio[facility], Md, Cancer CenterComment on above:Performed By: #### 51986-0 #### MAXIMO CABELLO ([id number]) [facility] ([facility]) [address] [place] [address] 11471HVD/1.73 sq M.predicted MDRD (S/P/Bld) [Vol rate/Area] mL/min/{1.73_m2}Normal>60UnOhioHealth Riverside Methodist HospitalComment on above:Result Comment: Calculations of estimated GFR are performed using the 2020 CKD-EPI Study Refit equation without the race variable for the IDMS-Traceable creatinine methods. https://jasn.asnjournals.org/content/early//ASN.6695532170Zssovkuej By: #### 77713-3 #### MAXIMO CABELLO ([id number]) [facility] ([facility]) [address] [place] [address] 15911Ncfytmc [Mass/Vol]105 mg/hEIjki13-90IdvqweqjzgOhioHealth Riverside Methodist HospitalComment on above:Performed By: #### 68964-4 #### MAXIMO CABELLO ([id number]) [facility] ([facility]) [address] [place] [address] 21298Uzpijfxrh [Moles/Vol]3.8 mmol/LNormal3.5-5.3Ohio[facility] Md, Cancer CenterComment on above:Performed By: #### 26125-8 #### DAVIDIBSANDY CABELLO ([id number]) [facility] ([facility]) [address] [place] [address] 07538Msyyfj [Moles/Vol]139 mmol/VZxvikb620-680HndogvysstOhioHealth Riverside Methodist HospitalComment on above:Performed By: #### 65290-5 #### MAXIMO CABELLO ([id number]) [facility] ([facility]) [address] [place] [address] 79871Xjnj nitrogen [Mass/Vol]20 mg/dLNormal6-23UnOhioHealth Riverside Methodist HospitalComment on above:Performed By: #### 19370-6 #### MAXIMO GRIMES RIO NICK ([id number]) [facility] ([facility]) [address] [place] [address] 83949Nuygdbzwociix Externalon 12-29-0890Bffb surface area Derived from formula2.43 b7PrmlprzqrpTriHealth Work Phone: addendum by Fozia Ramos MD on 05/07/2024 2:36 PM EDT Direct current Cardioversion Procedures Direct current cardioversion (06994) Patient history: Please refer to the detailed history and physical on the patient's medical chart. Procedure narrative: The risks, benefits, and alternatives to the procedure and sedation were explained to the patient, and informed consent was obtained. The patient was in the fasting state. A grounding pad was placed. Self-adhesive anterior-posterior defibrillation pads were applied. A defibrillator was used for monitoring and the defibrillator waveform was set to biphasic. The patient was set up for continuous monitoring of surface 12 lead ECG, capnography, and pulse oximetry. Blood pressure was monitored with automatic cuff measurements. The procedure was performed under IV conscious sedation supplemented with intermittent deep sedation. Patient reported taking their anticoagulation Apixaban 5mg BID without interruption in the last 4-6 weeks. When pt had been adequately sedated, they were cardioverted with a 200J biphasic shock. This restored sinus rhythm which was confirmed by tele and 12-lead ECG. Summary: Patient was successfully cardioverted from Atrial fibrillation to Sinus rhythm Discharge: The patient left the EP laboratory in stable condition. Follow up: Tentatively patient will be monitored today, with anticipated discharge tomorrow if meets discharge criteria for dofetilide drug loading. Resume AC Apixaban 5mg BID, DO NOT Stop your blood thinner unless emergency without checking in with your doctor. No driving, alcohol or making legal decisions for 24 hours. 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 [facility] Work Phone: [facility] Work Phone: ECQ 12-LEADon 43-55-8013YCP 12-LEADVentricular Rate 56 Atrial Rate 56 P-R Interval 190 QRS Duration 116 Q-T Interval 526 QTC Calculation(Bazett) 507 P [place] 53 R [place] 1 T [place] 123 QRS Count 9 Q Onset 210 P Onset 115 P Offset 180 T Offset 473 QTC Fredericia 514 Diagnosis Sinus bradycardia Possible Left atrial enlargement Left ventricular hypertrophy with QRS widening and repolarization abnormality Prolonged QT Abnormal ECG When compared with ECG of 07-MAY-2024 13:19, (unconfirmed) No significant change was found Confirmed by Jose David Cha ([id number]) on 05/12/2024 1:47:38 [facility] CenterEC[facility]-LEADVentricular Rate 57 Atrial Rate 57 P-R Interval 180 QRS Duration 112 Q-T Interval 478 QTC Calculation(Bazett) 465 P [place] 24 R [place] 6 T [place] 135 QRS Count 10 Q Onset 212 P Onset 122 P Offset 185 T Offset 451 QTC Fredericia [address] & T wave abnormality, consider anterolateral ischemia Prolonged QT Abnormal ECG When compared with ECG of 07-MAY-2024 06:25, (unconfirmed) Sinus rhythm has replaced Atrial fibrillation Vent. rate has decreased BY 33 BPM QT has shortened Confirmed by Jose David Cha ([id number]) on 05/12/2024 1:46:01 PMNMunicipal Hospital and Granite ManorECG 12-LEADVentricular Rate 90 Atrial Rate 89 QRS Duration 120 Q-T Interval 424 QTC Calculation(Bazett) 518 R [place] 4 T [place] 132 QRS Count 15 Q Onset 211 T Offset 423 QTC Fredericia 485 Diagnosis Atrial fibrillation Nonspecific intraventricular conduction delay ST & T wave abnormality, consider anterolateral ischemia Abnormal ECG When compared with ECG of 06-MAY-2024 22:25, (unconfirmed) No significant change was found Confirmed by Jose David Cha ([id number]) on 05/12/2024 1:41:08 PMNMunicipal Hospital and Granite ManorMagnesiumon 97-39-3985Xlngzhwoi [Mass/Vol]2.14 mg/dL1.60 - 2.40 mg/dLUnTriHealthMagnesium [Mass/Vol]2.14 mg/dLNormal 1.60-2.40UnOhioHealth Riverside Methodist HospitalComment on above:Performed By: #### 79061-0 #### MAXIMO CABELLO ([id number]) [facility] [place] [address] [place] [address] [id number] [Mass/Vol]on 31-60-0485Dwpfwhhqqsmawj and review of laboratory resultsNoCleveland Clinic South Pointe HospitalNo Panel Informationon 94-03-9525PcrqvahoiwTriHealthBasic metabolic 2000 panelon 80-89-2088Tyfux gap [Moles/Vol]12 mmol/L10 - 20 mmol/[facility] Medical CenterCalcium [Mass/Vol]9.2 mg/dL8.6 - 10.3 mg/dLUnTriHealthChloride [Moles/Vol]106 mmol/L98 - 107 mmol/[facility]'s Medical CenterCO2 [Moles/Vol]25 mmol/L21 - 32 mmol/[facility] Creatinine [Mass/Vol]0.9 mg/dL0.50 - 1.30 mg/dLUnTriHealth eGFR- PINFUniMercy Health St. Elizabeth Youngstown HospitalComment on above:Calculations of estimated GFR are performed using the 2020 CKD-EPI Study Refit equation without therace variable for the IDMS-Traceable creatinine methods. https://jasn.asnjournals.org/content//ASN.3225445756 Glucose [Mass/Vol]102 mg/lGUeuv43 - 99 mg/dLUnTriHealth Interpretation and review of laboratory resultsAbnormalUniMercy Health St. Elizabeth Youngstown HospitalPotassium [Moles/Vol]3.9 mmol/L3.5 - 5.3 mmol/[facility]'s Medical CenterSodium [Moles/Vol]139 mmol/L136 - 145 mmol/[facility]'s Medical CenterUrea nitrogen [Mass/Vol]17 mg/dL6 - 23 mg/dLUnTriHealthAnion gap [Moles/Vol]12 mmol/LEbrnqr42-48KrpaboyituOhioHealth Riverside Methodist HospitalComment on above:Performed By: #### 27967-2 #### MAXIMO CABELLO ([id number]) [facility] ([facility]) [address] [place] [address] 08401Cflvenr [Mass/Vol]9.2 mg/dLNormal8.6-10.3UnOhioHealth Riverside Methodist HospitalComment on above:Performed By: #### 90876-4 #### MAXIMO CABELLO ([id number]) [facility] ([facility]) [address] [place] [address] 25872Tjqldiye [Moles/Vol]106 mmol/PNbqhzp88-969AzqxaweulnOhioHealth Riverside Methodist HospitalComment on above:Performed By: #### 20955-8 #### MAXIMO CABELLO ([id number]) [facility] ([facility]) [address] [place] [address] 16575UG4 [Moles/Vol]25 mmol/SOhdmkg48-13CuzmtryoftOhioHealth Riverside Methodist HospitalComment on above:Performed By: #### 17121-6 #### MAXIMO CABELLO (13164) [facility] ([facility]) [address] [place] [address] 33564Xjgnvenepy [Mass/Vol]0.90 mg/dLNormal0.50-1.30UnOhioHealth Riverside Methodist HospitalComment on above:Performed By: #### 58130-9 #### MAXIMO CABELLO ([id number]) [facility] ([facility]) [address] [place] [address] 83312TVS/1.73 sq M.predicted MDRD (S/P/Bld) [Vol rate/Area] mL/min/{1.73_m2}Normal>60UnOhioHealth Riverside Methodist HospitalComment on above:Result Comment: Calculations of estimated GFR are performed using the 2020 CKD-EPI Study Refit equation without the race variable for the IDMS-Traceable creatinine methods. https://jasn.asnjournals.org/content/early//ASN.2863215415Mxqnjkpln By: #### 86661-9 #### MAXIMO CABELLO ([id number]) [facility] ([facility]) [address] [place] [address] 80287Xoqovxv [Mass/Vol]102 mg/gODqqb98-78PchyvnieydOhiohealth Arthur G.H. Bing, Md, Cancer CenterComment on above:Performed By: #### 02840-5 #### MAXIMO CABELLO ([id number]) [facility] ([facility]) [address] [place] [address] 55999Yluldnhbx [Moles/Vol]3.9 mmol/LNormal3.5-5.3Ohio[facility] Md, Cancer CenterComment on above:Performed By: #### 85457-9 #### MAXIMO CABELLO (65498) [facility] ([facility]) [address] [place] [address] 38622Qtejit [Moles/Vol]139 mmol/ITnhqwf432-917SrruwcrghnOhioHealth Riverside Methodist HospitalComment on above:Performed By: #### 32886-9 #### MAXIMO CABELLO ([id number]) [facility] ([facility]) [address] [place] [address] 72680Zxza nitrogen [Mass/Vol]17 mg/dLNormal6-23Ohio[facility] Md, Cancer CenterComment on above:Performed By: #### 08406-2 #### MAXIMO CABELLO ([id number]) [facility] ([facility]) [address] [place], [place] [address]MAU 12-LEADon 58-59-6561YLR 12-LEADVentricular Rate 85 Atrial Rate 82 QRS Duration 116 Q-T Interval 430 QTC Calculation(Bazett) 511 R [place] -1 T [place] 135 QRS Count 14 Q Onset 212 T Offset 427 QTC Fredericia 483 Diagnosis Atrial fibrillation with a competing junctional pacemaker Left ventricular hypertrophy with QRS widening ST & T wave abnormality, consider anterolateral ischemia Prolonged QT Abnormal ECG When compared with ECG of 06-MAY-2024 11:21, (unconfirmed) No significant change was found Confirmed by Jose David Cha ([id number]) on 05/12/2024 1:38:20 [facility] CenterECG 12-LEADVentricular Rate 91 Atrial Rate 234 QRS Duration 114 Q-T Interval 404 QTC Calculation(Bazett) 496 R [place] 14 T [place] 141 QRS Count 15 Q Onset 211 T Offset 413 QTC Fredericia 464 Diagnosis Atrial fibrillation with premature ventricular or aberrantly conducted complexes ST & T wave abnormality, consider anterolateral ischemia Prolonged QT Abnormal ECG When compared with ECG of 06-MAY-2024 06:49, (unconfirmed) No significant change was found Confirmed by Jose David Cha ([id number]) on 05/12/2024 1:34:34 [facility] CenterECG 12-LEADVentricular Rate 89 Atrial Rate 108 QRS Duration 110 Q-T Interval 408 QTC Calculation(Bazett) 496 R [place] 15 T [place] 142 QRS Count 14 Q Onset 212 T Offset 416 QTC Fredericia [address] & T wave abnormality, consider anterolateral ischemia Prolonged QT Abnormal ECG When compared with ECG of 05-MAY-2024 23:09, (unconfirmed) No significant change was found Confirmed by Jose David Cha ([id number]) on 05/12/2024 1:17:28 [facility] Medical CenterLavender Topon 03-58-9073Ozibr TubeHold for add-ons.[facility] CenterComment on above:Auto resulted.[facility] Medical CenterMagnesiumon 78-76-9112Sxgjcmnqi [Mass/Vol]2.09 mg/dL1.60 - 2.40 mg/dL [facility] CenterMagnesium [Mass/Vol]2.09 mg/dLNormal1.60-2.40 [facility], Cancer CenterComment on above:Performed By: #### 97326-9 #### MAXIMO CABELLO ([id number]) [facility] ([facility]) [address] [place] [address] 80084Yuiovbkqb [Mass/Vol]on 05-57-2660Jwjhxqqejaxnpe and review of laboratory resultsNormalUniMercy Health St. Elizabeth Youngstown HospitalNo Panel Informationon 37-20-4611XrqilueadpTriHealthTPO Ab Qnon 36-82-3975Pwduwcoorutduw and review of laboratory resultsNoCleveland Clinic South Pointe HospitalNegative: <=60 U/mL Positive: >60 U/mLUnTriHealthUnTriHealthThyroid Peroxidase Antibodyon 28-49-6783DRU Ab Qn40 [IU]/mLNINF [facility] CenterCBC panel Auto (Bld)on 81-39-3057Yfppcxmdndw distribution width (RBC) [Ratio]12.6 %11.5 - 14.5 %[facility] CenterHematocrit (Bld) [Volume fraction]48.1 %41.0 - 52.0 %[facility] CenterHemoglobin (Bld) [Mass/Vol]16.9 g/dL13.5 - 17.5 g/dL [facility] CenterInterpretation and review of laboratory results NormalUnMain Campus Medical CenterH (RBC) [Entitic mass]31 pg26.0 - 34.0 pgUnTriHealthMCHC (RBC) [Mass/Vol]35.1 g/dL32.0 - 36.0 g/dLUnTriHealthMCV (RBC) [Entitic vol]88 fL80 - 100 fL [facility] CenterNucleated RBC/100 WBC (Bld) [Ratio]0 % [facility] CenterPlatelets (Bld) [#/Vol]204 10*3/uLPremier Health Upper Valley Medical CenterRBC (Bld) [#/Vol]5.45 10*6/[facility] HospitalWBC (Bld) [#/Vol]6.9 10*3/[facility]ville HospitalUnTriHealthErythrocyte distribution width (RBC) [Ratio]12.6 %Normal 11.5-14.5UnOhioHealth Riverside Methodist HospitalComment on above:Performed By: #### 15517-6 #### MAXIMO CABELLO ([id number]) [facility] ([facility]) [address] [place] [address] 62002Voomuvyyld (Bld) [Volume fraction]48.1 %Mdttlu26.0-52.0 [facility] Md, Cancer CenterComment on above:Performed By: #### 98421-8 #### MAXIMO CABELLO ([id number]) [facility] ([facility]) [address] [place] [address] 37919Gvxeficdin (Bld) [Mass/Vol]16.9 g/jVKzveha36.5-17.5UnOhioHealth Riverside Methodist HospitalComment on above:Performed By: #### 35774-6 #### DAVIDIBSANDY CABELLO (95354) [facility] ([facility]) [address] [place] [address] 36846MGR (RBC) [Entitic mass]31.0 wgPavryt24.0-34.0UnOhioHealth Riverside Methodist HospitalComment on above:Performed By: #### 65127-5 #### MAXIMO CABELLO (95506) [facility] ([facility]) [address] [place] [address] 60634DZXU (RBC) [Mass/Vol]35.1 g/qFLyrxdy49.0-36.0UnOhioHealth Riverside Methodist HospitalComment on above:Performed By: #### 13008-1 #### MAXIMO CABELLO (84119) [facility] ([facility]) [address] [place] [address] 33548ABL (RBC) [Entitic vol]88 qMRwhpez78-341EmppuckmkgOhioHealth Riverside Methodist HospitalComment on above:Performed By: #### 23570-4 #### MAXIMO CABELLO (14422) [facility] ([facility]) [address] [place] [address] 60394Hnmzptusn RBC/100 WBC (Bld) [Ratio]0.0 /100 WBCsNormal0.0-0.0 [facility] Md, Cancer CenterComment on above:Performed By: #### 18500-7 #### MAXIMO CABELLO (76456) [facility] ([facility]) [address] [place] [address] 28064Ptvwtfpis (Bld) [#/Vol]204 x10*3/mWCumxrl322-307VduowxasacOhioHealth Riverside Methodist HospitalComment on above:Performed By: #### 35456-1 #### MAXIMO CABELLO (40162) [facility] ([facility]) [address] [place] [address] 15147GTN (Bld) [#/Vol]5.45 x10*6/uLNormal4.50-5.90UnOhioHealth Riverside Methodist HospitalComment on above:Performed By: #### 13623-4 #### MAXIMO CABELLO (63353) [facility] ([facility]) [address] [place] [address] 77081HBI (Bld) [#/Vol]6.9 x10*3/uLNormal4.4-11.3[facility] Md, Cancer CenterComment on above:Performed By: #### 60046-9 #### MAXIMO CABELLO ([id number]) [facility] ([facility]) [address] [place] [address] 92052Ruiddwdwcfyff metabolic 2000 panelon 69-71-2737Rhjjjav BCP dye [Mass/Vol]4.5 g/dL3.4 - 5.0 g/dLUnTriHealthALP [Catalytic activity/Vol]36 U/L33 - 136 U/[facility] Medical CenterALT With P-5'-P [Catalytic activity/Vol]27 U/L10 - 52 U/[facility] Comment on above:Patients treated with Sulfasalazine may generate falsely decreased results for ALT.Anion gap [Moles/Vol]10 mmol/L10 - 20 mmol/LUnTriHealthAST With P-5'-P [Catalytic activity/Vol]26 U/L9 - 39 U/L [facility] CenterBilirubin [Mass/Vol]0.8 mg/dL0.0 - 1.2 mg/dL [facility] CenterCalcium [Mass/Vol]9.9 mg/dL8.6 - 10.3 mg/dL [facility] CenterChloride [Moles/Vol]103 mmol/L98 - 107 mmol/L [facility] CenterCO2 [Moles/Vol]31 mmol/L21 - 32 mmol/L [facility] CenterCreatinine [Mass/Vol]1.08 mg/dL0.50 - 1.30 mg/dLUnTriHealthGFR/1.73 sq M.predicted among non-blacks MDRD (S/P/Bld) [Vol rate/Area]78 mL/min/{1.73_m2}- PINFUniMercy Health St. Elizabeth Youngstown HospitalComment on above:Calculations of estimated GFR are performed using the 2020 CKD-EPI Study Refit equation without therace variable for the IDMS- Traceable creatinine methods. https://jasn.asnjournals.org/content/early/ASN.7595138716 Glucose [Mass/Vol]111 mg/tFSkde43 - 99 mg/dLUnTriHealth Interpretation and review of laboratory resultsAbnormalUniMercy Health St. Elizabeth Youngstown HospitalPotassium [Moles/Vol]4.6 mmol/L3.5 - 5.3 mmol/[facility] Medical CenterProtein [Mass/Vol]7.4 g/dL6.4 - 8.2 g/dLUnTriHealthSodium [Moles/Vol]139 mmol/L136 - 145 mmol/[facility]'s Medical CenterUrea nitrogen [Mass/Vol]18 mg/dL6 - 23 mg/dLUnTriHealthAlbumin BCP dye [Mass/Vol]4.5 g/dLNormal3.4-5.0UnOhioHealth Riverside Methodist HospitalComment on above:Performed By: #### 16873-3 #### MAXIMO CABELLO ([id number]) [facility] ([facility]) [address] [place] [address] 56976PRC [Catalytic activity/Vol]36 U/QOxmiju70-619RuexnoqgwtOhioHealth Riverside Methodist HospitalComment on above:Performed By: #### 67960-2 #### MAXIMO CABELLO ([id number]) [facility] ([facility]) [address] [place] [address] 36167WKZ With P-5'-P [Catalytic activity/Vol]27 U/IDyyocw50-32 [facility], Cancer CenterComment on above:Result Comment: Patients treated with Sulfasalazine may generate falsely decreased results for ALT.Performed By: #### 50934-8 #### MAXIMO CABELLO (98228) [facility] ([facility]) [address] [place] [address] 36689Prcci gap [Moles/Vol]10 mmol/LJrbuio52-35GkfheqkjvhOhioHealth Riverside Methodist HospitalComment on above:Performed By: #### 52809-5 #### MAXIMO CABELLO ([id number]) [facility] ([facility]) [address] [place] [address] 62947PLA With P-5'-P [Catalytic activity/Vol]26 U/LNormal9-39 [facility], Cancer CenterComment on above:Performed By: #### 80826-7 #### MAXIMO CABELLO (35029) [facility] ([facility]) [address] [place] [address] 45002Gtptzlbnr [Mass/Vol]0.8 mg/dLNormal0.0-1.2UnOhioHealth Riverside Methodist HospitalComment on above:Performed By: #### 08744-9 #### MAXIMO CABELLO (09398) [facility] ([facility]) [address] [place] [address] 03142Abmnbcu [Mass/Vol]9.9 mg/dLNormal8.6-10.3UnOhioHealth Riverside Methodist HospitalComment on above:Performed By: #### 60640-2 #### MAXIMO CABELLO ([id number]) [facility] ([facility]) [address] [place], [place] [address]Stobsvbm [Moles/Vol]103 mmol/TLaiiqf41-669QmkitrkhcyOhiohealth Arthur G.H. Bing, Md, Cancer CenterComment on above:Performed By: #### 22920-0 #### DAVIDIBSANDY GRIMES RIO NICK (31962) [facility] ([facility]) [address] [place], [place] [address]FN7 [Moles/Vol]31 mmol/HGigorp53-60TvqyamnymeOhioHealth Riverside Methodist HospitalComment on above:Performed By: #### 07336-2 #### MAXIMO GRIMES RIO NICK (78301) [facility] ([facility]) [address] [place] [address] 25766Mxmtpjceso [Mass/Vol]1.08 mg/dLNormal0.50-1.30[facility], Cancer CenterComment on above:Performed By: #### 29204-9 #### MAXIMO GRIMES KARTIK ROMERO (88266) [facility] ([facility]) [address] [place] [address] 84229Agejglcrdt filtration rate/1.73 sq M.pmkoodzww59 mL/min/1.73m*2 Normal>60UnOhioHealth Riverside Methodist HospitalComment on above:Result Comment: Calculations of estimated GFR are performed using the 2020 CKD-EPI Study Refit equation without the race variable for the IDMS-Traceable creatinine methods. https://jasn.asnjournals.org/content/early/ASN.8798386299Fqtolkwuh By: #### 63182-7 #### DAVIDIBSANDY GRIMES RIO NICK ([id number]) [facility] ([facility]) [address] [place] [address] 29587Olhsily [Mass/Vol]111 mg/zHOkuh19-22IaxbmzfgyeOhiohealth Arthur G.H. Bing, Md, Cancer CenterComment on above:Performed By: #### 48197-0 #### DAVIDIBSANDY GRIMES RIO NICK (24042) [facility] ([facility]) [address] [place] [address] 38393Oixlnqjbx [Moles/Vol]4.6 mmol/LNormal3.5-5.3[facility], Cancer CenterComment on above:Performed By: #### 93610-1 #### MAXIMO CABELLO (56219) [facility] ([facility]) [address] [place] [address] 31745Yplinzi [Mass/Vol]7.4 g/dLNormal6.4-8.2UnOhioHealth Riverside Methodist HospitalComment on above:Performed By: #### 97719-1 #### DAVIDIBELILUCA CABELLO (69911) [facility] ([facility]) [address] [place] [address] 88298Ctbasl [Moles/Vol]139 mmol/FYyfuyb971-540YordtrgxxqOhioHealth Riverside Methodist HospitalComment on above:Performed By: #### 75442-1 #### DAVIDIBELILUCA CABELLO ([id number]) [facility] ([facility]) [address] [place] [address] 89138Brom nitrogen [Mass/Vol]18 mg/dLNormal6-23[facility], Cancer CenterComment on above:Performed By: #### 15991-4 #### DAVIDIBSANDY CABELLO ([id number]) [facility] ([facility]) [address] [place] [address] 08809MGK 12 Leadon 17-94-9411Vqmrtt Hnkj823AEAUjgaeuorjjSheltering Arms Hospital Work Phone: [phone] Szfcy712 [facility] Work Phone: [phone] Qbqkp79msvspCvafuokjkdParkview Whitley Hospital Work Phone: [phone] Tiyczbpo245 [facility] Work Phone: [phone] Iavgrsmz949 [facility] Work Phone: [phone] Calculation(Tatianatt)481 [facility] Work Phone: [phone] Brennkfthw584 [facility] Work Phone: [phone] Ncwq69oymwkbdSenputericParkview Health [facility] Hospital Work Phone: T Cqyq498ihsgbxmGcvejmkqzcParkview Health [facility] Hospital Work Phone: T Mmrvrp580 [facility] Work Phone: Ventricular Fxiz32LSLWybxwdemxoSheltering Arms Hospital Work Phone: atrial fibrillation ST & Marked T wave abnormality, consider anterolateral ischemia Prolonged QT Abnormal ECG No previous ECGs available Confirmed by Fozia Ramos ([id number]) on 05/05/2024 9:05:14 AMFozia Gutierrez MD - 05/05/[address] & Marked T wave abnormality, consider anterolateral ischemia Prolonged QT Abnormal ECG No previous ECGs available Confirmed by Fozia Ramos ([id number]) on 05/05/2024 9:05:14 AM [facility] Work Phone: [facility] Work Phone: ECG 12-LEADon [id number] 12-LEADVentricular Rate 86 Atrial Rate 250 QRS Duration 114 Q-T Interval 420 QTC Calculation(Bazett) 502 R [place] 0 T [place] 142 QRS Count 14 Q Onset 211 T Offset 421 QTC Fred[place] 473 Diagnosis Atrial fibrillation Minimal voltage criteria for LVH, may be normal variant ST & T wave abnormality, consider anterolateral ischemia Prolonged QT Abnormal ECG When compared with ECG of 05-MAY-2024 12:00, (unconfirmed) No significant change was found Confirmed by Jose David Cha ([id number]) on 05/12/2024 1:14:36 [facility] 12-LEADVentricular Rate 97 Atrial Rate 81 QRS Duration 112 Q-T Interval 358 QTC Calculation(Bazett) 454 R [place] 24 T [place] 129 QRS Count 16 Q Onset 213 T Offset 392 QTC [place] [address] & T wave abnormality, consider anterolateral ischemia Abnormal ECG When compared with ECG of 05-MAY-2024 08:20, T wave inversion less evident in Anterior leads Confirmed by Jose David Cha ([id number]) on 05/12/2024 1:08:42 PMNormalUH Spangler Medical CenterECG 12-LEADVentricular Rate 82 Atrial Rate 104 QRS Duration 116 Q-T Interval 412 QTC Calculation(Bazett) 481 R [place] 25 T [place] 145 QRS Count 14 Q Onset 211 T Offset 417 QTC Fred[place] [address] & Marked T wave abnormality, consider anterolateral ischemia Prolonged QT Abnormal ECG No previous ECGs available Confirmed by Fozia Ramos ([id number]) on 05/05/2024 9:05:14 AMNMunicipal Hospital and Granite ManorFree T4 [Mass/Vol]on 70-33-3418Gymgbicqrrurdf and review of laboratory resultsNormOhioHealth Shelby HospitalThyroxine Free testing is performed using different testing methodology at [facility] at other [facility]. Direct result comparisons should only be made within the same method. Biotin can cause falsely elevated free T4 results. Patients taking a Biotin dose of up to 10 mg/dayshould refrain from taking Biotin for 24 hours before sample collection. Patient taking a Biotin dose of >10 mg/day should consult with their physician or the laboratory before the blood draw.[facility] CenterUnTriHealthMagnesiumon 50-81-0730Vvxekjwea [Mass/Vol]2.12 mg/dL1.60 - 2.40 mg/dLUnTriHealthMagnesium [Mass/Vol]2.12 mg/dLNormal1.60-2.40UnOhioHealth Riverside Methodist Hospital Comment on above:Performed By: #### [id number] #### MAXIMO CABELLO ([id number]) [facility] ([facility]) [address] [place] [address] [id number] [Mass/Vol]on 09-16-1614Fddtmysnuvvenl and review of laboratory resultsNoCleveland Clinic South Pointe HospitalNo Panel Informationon 96-94-5924ErxmewgqhpPremier Health [facility] Valley Medical CenterPT and aPTT panel Coag (PPP)on 25-07-8483sGDV Coag (PPP) [Time]35 [facility] DaytonINR Coag (PPP) [Relative time]1.3 {INR}High0.9 - 1.1UnTriHealth Interpretation and review of laboratory resultsAbnoCleveland Clinic South Pointe HospitalPT Coag (PPP) [Time]14.5 [facility] HospitalThe APTT is no longer used for monitoring Unfractionated Heparin Therapy. For monitoring Heparin Therapy, use the Heparin Assay.[facility] HospitalaPTT Coag (PPP) [Time]35 eYscybd17-47TvkhugpovgOhioHealth Riverside Methodist HospitalComment on above:Order Comment: The APTT is no longer used for monitoring Unfractionated Heparin Therapy. For monitoring Heparin Therapy, use the Heparin Assay.Performed By: #### 47890-7 #### MAXIMO CABELLO ([id number]) [facility] (EM) [address] [place] [address] [id number] Coag (PPP) [Relative time]1.3High0.9-1.1Ohiohealth Arthur [facility]. Bing, Md, Cancer CenterComment on above:Order Comment: The APTT is no longer used for monitoring Unfractionated Heparin Therapy. For monitoring Heparin Therapy, use the Heparin Assay.Performed By: #### 54561-4 #### MAXIMO CABELLO ([id number]) [facility] [place] [address] [place] [address] [id number] Coag (PPP) [Time]14.5 sHigh9.8-12.4UnOhioHealth Riverside Methodist HospitalComment on above:Order Comment: The APTT is no longer used for monitoring Unfractionated Heparin Therapy. For monitoring Heparin Therapy, use the Heparin Assay.Performed By: #### 69196-1 #### MAXIMO CABELLO ([id number]) [facility] ([facility] [address] [place] [address] [id number] WITH REFLEX TO FREE T4 IF ABNORMALon 72-67-6096ZSZ Qn5.84 m[IU]/LHigh0.44-3.98UnOhioHealth Riverside Methodist HospitalComment on above: Order Comment: TSH testing is performed using different testing methodology at [facility] than at other [facility]. Direct result comparisons should only be made within the same method.Performed By: #### THYDS #### MAXIMO CABELLO ([id number]) [facility] (EM) [address] [place] [address] [id number] with reflex to Free T4 if abnormalon 05-05-2024 Interpretation and [address] of laboratory resultsAbnoWilson Street Hospital Qn5.84 m[IU]/LHthomas memorial hospitalUnWestern Reserve Hospital testing is performed using different testing methodology at [facility] than at other [facility]. Direct result comparisons should only be made within the same method. [facility] CenterUnTriHealth Thyroperoxidase Abon 46-70-2184PPV Ab Qn40 [IU]/mLNormal<=60Ohiohealth Arthur G.[facility]. [facility], Md, Cancer CenterComment on above:Order Comment: Negative: <=60 U/mL Positive: >60 U/mLPerformed By: #### [id number] #### MARY Hurtado ([id number]) [facility] ([facility]) [address] [place] [address] [id number], Freeon 24-60-3321Akji T4 [Mass/Vol]0.83 ng/dL0.61 - 1.12 ng/dLPremier Health Upper Valley Medical CenterThyroxine.freeon 14-92-0401Elbm T4 [Mass/Vol]0.83 ng/dLNormal0.61-1.12[facility] Comment on above:Order Comment: Thyroxine Free testing is performed using different testing methodology at [facility] than at other [facility]. Direct result comparisons should only be made withinthe same method. Biotin can cause falsely elevated free T4 results. Patients taking a Biotin dose of up to 10 mg/dayshould refrain from taking Biotin for 24 hours before sample collection. Patient taking a Biotin dose of >10 mg/day should consult with their physician or the laboratory before the blood draw.Performed By: #### 3024-7 #### MAXIMO CABELLO ([id number]) [facility] ([facility] [address] [place] [address] [id number] 12 lead (Clinic Performed)on [id number] Work Phone: [facility] Work Phone: ECHOCARDIOGRAM STRESS TESTon [id number] STRESS TESTInspira [facility], [address] [place] [address] and Exercise Stress Echo Patient Name: CRISTIAN CHAMBERS Ordering Provider: [id number] ANA SOUSA Study Date: 04/05/2023 Reading Physician: Christina Jernigan MD MRN/PID: [id number] Supervising Physician: Christina Jernigan MD Fellow: [id number] Gunjan Eisenberg MD Date of /Age: 4 1960 / 62 years Fellow: Gender: M Nurse: Lizett Mcdonald RN Admit Date: Osteopathic Resident: Jennifer Kilpatrick 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 Study Details: Correct procedure and correct patient verified verbally and with ID Band checked. Patient History: . 62 year old male with history of HTN, apical hypertrophic cardiomyopathy, DLD and palpitations. Allergies: None. Smoker: Never. Medications: The patient's prescribed medication is amlodipine, aspirin, lorazepam, metoprolol, pravastatin, sildenafil. The patient took medications as prescribed. Patient Performance: The patient exercised to stage III on a Andrzej protocol for 9 minutes and 00 seconds, achieving 10.0 METS. The peak heart rate achieved was 116 bpm, which was 73 % of the age predicted target heart rate of 159 bpm. The resting blood pressure was 126/80 mmHg with a heart rate of 59 bpm. The standing blood pressure was 128/88 mmHg with a heart rate of 55 bpm. The patient's functional capacity was above average. The patient developed no symptoms during the stress exam. The blood pressure response was hypertensive. The test was terminated due to: patient request and leg fatigue and musculoskeletal weakness. Patient has met the discharge criteria and is discharged to home. Baseline ECG: Resting ECG showed sinus bradycardia with occasional premature atrial contractions and T wave inversions. Stress ECG: Stress ECG showed sinus tachycardia, with rare PAC. There was a 1.[address] segment depression in leads II, III and AVF during the peak stress period. Stress Stage Data: +---+------+-------+ + + HR Sys BP Harrison BP RPE Comments +---+------+-------+ + + 59 126 80 +---+------+-------+ + + 55 128 88 +---+------+-------+ + + 92 180 98 13=Somewhat hard 3 mins, no symptoms +---+------+-------+ + + 106 182 100 16=Hard 6 mins, no symptoms +---+------+-------+ + + 116 198 100 17=Very hard terminated at 9 mins +---+------+-------+ + + Recovery ECG: Recovery ECG showed normal sinus rhythm, with T wave inversions as in baseline, rare PVC and frequent PACs. + +--+------+-------+ + HR Sys BP Harrison BP Comments + +--+------+-------+ + Recovery I 90 208 92 1 min, no symptoms + +--+------+-------+ + Recovery II 79 188 88 2 mins, no symptoms + +--+------+-------+ + Recovery III 68 170 86 4 mins, no symptoms + +--+------+-------+ + Recovery IV 69 138 86 6 mins, no symptoms + +--+------+-------+ + Baseline Echo: The resting baseline ejection fraction was estimated at 60 to 65%. There are no regional wall motion abnormalities at baseline. Stress Echo: There are no stress induced regional wall motion abnormalities. The ejection fraction is approximately 70 to 75% at peak stress. Intracavitary gradient up to 18 mmHg post exercise. Summary: 1. The resting ejection fraction was estimated at 60 to 65% with a peak exercise ejection fraction estimated at 70 to 75%. 2. Adequate level of stress achieved. 3. No clinical or echocardiographic evidence for ischemia at a maximal workload. 4. No significant intracavitary gradient with no change with exercise. 5. The blunted heart rate diminshes the sensitivity of this test. 6. This exercise test is indeterminate because of an abnormal baseline ECG. 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 Study Details: Correct procedure and correct patient verified verbally and with ID Band checked. Patient History: . 62 year old male with history of HTN, apical hypertrophic cardiomyopathy, DLD and palpitations. Allergies: None. Smoker: Never. Medications: The patient's prescribed medication is amlodipine, aspirin, lorazepam, metoprolol, pravastatin, sildenafil. The patient took medications as prescribed. Patient Performance: The patient exercised to stage III on a Andrzej protocol for 9 minutes and 00 seconds, achieving 10.0 METS. The peak heart rate achieved was 116 bpm, which was 73 % of the age predicted target heart rate of 159 bpm. The resting blood pressure was 126/80 mmHg with a heart rate of 59 bpm. The standing blood pressure was 128/88 mmHg with a heart rate of 55 bpm. The patient's functional capacity was above average. The patient developed no symptoms during the stress exam. The blood pressure response was hypertensive. The test was terminated due to: patient request and leg fatigue and musculoskeletal weakness. Patient has met the discharge criteria and is discharged to home. Baseline ECG: Resting ECG showed sinus bradycardia with occasional premature atrial contractions and T wave inversions. Stress ECG: Stress ECG showed sinus tachycardia, with rare PAC. There was a 1.[address] segment depression in leads II, III and AVF during the peak stress period. Stress Stage Data: +---+------+-------+ + + HR Sys BP Harrison BP RPE Comments +---+------+-------+ + + 59 126 80 +---+------+-------+ + + 55 128 88 +---+------+-------+ + + 92 180 98 13=Somewhat hard 3 mins, no symptoms +---+------+-------+ + + 106 182 100 16=Hard 6 mins, no symptoms +---+------+-------+ + + 116 198 100 17=Very hard terminated at 9 mins +---+------+-------+ + + Recovery ECG: Recovery ECG showed normal sinus rhythm, with T wave inversions as in baseline, rare PVC and frequent PACs. + +--+------+-------+ + HR Sys BP Harrison BP Comments + +--+------+-------+ + Recovery I 90 208 92 1 min, no symptoms + +--+------+-------+ + Recovery II 79 188 88 2 mins, no symptoms + +--+------+-------+ + Recovery III 68 170 86 4 mins, no symptoms + +--+------+-------+ + Recovery IV 69 138 86 6 mins, no symptoms + +--+------+-------+ + Baseline Echo: The resting baseline ejection fraction was estimated at 60 to 65%. There are no regional wall motion abnormalities at baseline. Stress Echo: There are no stress induced regional wall motion abnormalities. 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 Study Details: Correct procedure and correct patient verified verbally and with ID Band checked. Patient History: . 62 year old male with history of HTN, apical hypertrophic cardiomyopathy, DLD and palpitations. Allergies: None. Smoker: Never. Medications: The patient's prescribed medication is amlodipine, aspirin, lorazepam, metoprolol, pravastatin, sildenafil. The patient took medications as prescribed. Patient Performance: The patient exercised to stage III on a Andrzej protocol for 9 minutes and 00 seconds, achieving 10.0 METS. The peak heart rate achieved was 116 bpm, which was 73 % of the age predicted target heart rate of 159 bpm. The resting blood pressure was 126/80 mmHg with a heart rate of 59 bpm. The standing blood pressure was 128/88 mmHg with a heart rate of 55 bpm. The patient's functional capacity was above average. The patient developed no symptoms during the stress exam. The blood pressure response was hypertensive. The test was terminated due to: patient request and leg fatigue and musculoskeletal weakness. Patient has met the discharge criteria and is discharged to home. Baseline ECG: Resting ECG showed sinus bradycardia with occasional premature atrial contractions and T wave inversions. Stress ECG: Stress ECG showed sinus tachycardia, with rare PAC. There was a 1.[address] segment depression in leads II, III and AVF during the peak stress period. Stress Stage Data: +---+------+-------+ + + HR Sys BP Harrison BP RPE Comments +---+------+-------+ + + 59 126 80 +---+------+-------+ + + 55 128 88 +---+------+-------+ + + 92 180 98 13=Somewhat hard 3 mins, no symptoms +---+------+-------+ + + 106 182 100 16=Hard 6 mins, no symptoms +---+------+-------+ + + 116 198 100 17=Very hard terminated at 9 mins +---+------+-------+ + + Recovery ECG: Recovery ECG showed normal sinus rhythm, with T wave inversions as in baseline, rare PVC and frequent PACs. + +--+------+-------+ + HR Sys BP Harrison BP Comments + +--+------+-------+ + Recovery I 90 208 92 1 min, no symptoms + +--+------+-------+ + Recovery II 79 188 88 2 mins, no symptoms + +--+------+-------+ + Recovery III 68 170 86 4 mins, no symptoms + +--+------+-------+ + Recovery IV 69 138 86 6 mins, no symptoms + +--+------+-------+ + Baseline Echo: The resting baseline ejection fraction was estimated at 60 to 65%. There are no regional wall motion abnormalities at baseline. Stress Echo: There are no stress induced regional wall motion abnormalities. The ejection fraction is approximately 70 to 75% at peak stress. Intracavitary gradient up to 18 mmHg post exercise. Summary: 1. The resting ejection fraction was estimated at 60 to 65% with a peak exercise ejection fraction estimated at 70 to 75%. 2. Adequate level of stress achieved. 3. No clinical or echocardiographic evidence for ischemia at a maximal workload. 4. No significant intracavitary gradient with no change with exercise. 5. The blunted heart rate diminshes the sensitivity of this test. 6. This exercise test is indeterminate because of an abnormal baseline ECG. [id number] Dax Jernigan MD Electronically signed on 04/05/2023 at 5:28:17 PM Final [facility] Work Phone: Radiology Study observation (narrative)[facility] Work Phone: Stress cardiac echo study reportOrdered By: Dax Jernigan on [id number] Health Upper Valley Medical Center Work Phone: mr CARDIAC MORPHOLOGY AND FUNCTION W AND WO IV CONTRASTon [id number] CARDIAC MORPHOLOGY AND FUNCTION W AND WO IV CONTRAST Interpreted By: Salvador Medrano, STUDY: MR CARDIAC MORPHOLOGY AND FUNCTION W AND WO IV CONTRAST; 03/20/2023 8:37 am INDICATION: Signs/Symptoms:Abnormal Echo. This study is performed to assess myocardial viability and damage, and to quantitate left ventricular and valvular function. COMPARISON: Echocardiography dated 02/14/2023 ACCESSION NUMBER(S): [id number] ORDERING CLINICIAN: AKHIL CADET TECHNIQUE: Siemens1.5 Nina MRI scanner. Turbo spin echo and balanced steady state free precession (bSSFP) imaging for anatomic definition. Dynamic cine bSSFP for cardiac chamber and wall-motion analysis, and valvular analysis. Flow quantification sequences for hemodynamics. Delayed gadolinium enhancement analysis after injection of gadolinium-chelate (40 mL Dotarem, 0.2 mmol/kg). FINDINGS: CARDIAC CHAMBERS Normal atrioventricular and ventriculoarterial concordance LEFT ATRIUM Dilated (Area-32.6 cm2) RIGHT ATRIUM Borderline dilated (Area-23.9 cm2) INTERATRIAL SEPTUM Intact. LEFT VENTRICLE The left ventricle is dilated with an end-diastolic diameter of 6.8 cm in the base. The basal septum is thickened measuring 1.5 cm. There is more concentric thickening within the mid to apical segments were wall thickness measures up to 2.1 cm. Overall systolic function is hyperdynamic with obliteration of the mid to apical cavity during systole. There are no segmental wall motion abnormalities. Quantitative left ventricular functional values are as follows: EDV = 196 cc; EDVi = 83 cc/m2 ESV = 48 cc; ESVi = 20 cc/m2 Stroke volume = 149 cc; SVi = 63 cc/m2 LVEF = 76 % Absolute Cardiac Output = 8.47 l/min.; COi = 3.58 l/min/m2 LV mass = 275 gm; LVMi = 116 gm/m2 *Alfonzo LOPEZ et al. Normalized left ventricular systolic and diastolic function by steady state free precession cardiovascular magnetic resonance. J Cardiovasc Magn Reson 2006; 8:417-26. [place] T1 values are increased within the mid to apical myocardium, indicative of diffuse interstitial fibrosis. [place] T2 values are normal. There is patchy to diffuse mid myocardial enhancement throughout the thickened mid to apical myocardium. Approximate scar size is 33%. RIGHT VENTRICLE The right ventricle appears normal in size, shape, and has normal qualitative systolic function. No segmental wall motion abnormalities. No abnormal delayed enhancement in the myocardium. INTERVENTRICULAR SEPTUM Intact. AORTIC VALVE There is mild aortic regurgitation. Peak resting velocity is 197 cm/sec with peak gradient of 15 mm Hg and mean gradient of 7 mm Hg. Peak velocity with Valsalva maneuver is 200 cm/sec with peak gradient of 16 mm Hg and mean gradient of 8 mm Hg. Peak velocity across the LVOT is 170 cm/sec with peak gradient of 12 mm Hg and mean gradient of 4 mm Hg. Flow quantification through the ascending aorta: Forward volume =94 cc/beat Reverse volume = 8 cc/beat Net forward volume = 86 cc/beat Aortic regurgitant fraction = 9 % MITRAL VALVE There is moderate mitral regurgitation. No systolic anterior motion of the mitral valve leaflets. Integrating LV volumetric and aortic flow quantification data reveals: Quantitative mitral regurgitant volume = 47 cc/beat Quantitative mitral regurgitant fraction = 32 % TRICUSPID VALVE There is qualitative no tricuspid regurgitation. THORACIC AORTA Thoracic aorta is mildly dilated measuring 4.0 cm at the level of the main pulmonary artery. The arch vessel branching pattern is normal. All the arch branch vessels appear widely patent in their proximal portions. PULMONARY ARTERIES The central pulmonary arteries appear mildly dilated (MPA-3.2 cm). SYSTEMIC AND PULMONARY VEINS Normal systemic venous and pulmonary venous return. The SVC and IVC are of normal caliber. Normal pulmonary venous anatomy. CHEST The chest wall is normal. No significant lymphadenopathy or mass is seen in limited images of the mediastinum. Limited imaging through the lungs reveals no gross abnormalities. No pleural effusion. UPPER ABDOMEN Limited imaging through the upper abdomen reveals no abnormalities of the visualized organs. IMPRESSION: 1. Left ventricle is normal in size (LVEDVi = 83 mL/m2) with hyperdynamic systolic function (LVEF = 76%). No focal wall motion abnormalities. 2. Asymmetric left ventricular hypertrophy involving the mid septum and apical segments with wall thickness measuring up to 2.1 cm. In addition, there are patchy areas of mid myocardial delayed enhancement involving these segments with approximate scar size of 33%. Overall findings are most suggestive of a hypertrophic cardiomyopathy. No evidence of prior infarction. 3. No evidence of LVOT gradient or systolic anterior motion of the mitral valve. 4. Increased T1 mapping times within the mid to apical segments, consistent with diffuse interstitial fibrosis. 5. Mode (more content not included)...[facility] HealthcareMR Heart WO and W contrast [place] . Left ventricle is normal in size (LVEDVi = 83 mL/m2) with hyperdynamic systolic function (LVEF = 76%). No focal wall motion abnormalities. 2. Asymmetric left ventricular hypertrophy involving the mid septum and apical segments with wall thickness measuring up to 2.1 cm. In addition, there are patchy areas of mid myocardial delayed enhancement involving these segments with approximate scar size of 33%. Overall findings are most suggestive of a hypertrophic cardiomyopathy. No evidence of prior infarction. 3. No evidence of LVOT gradient or systolic anterior motion of the mitral valve. 4. Increased T1 mapping times within the mid to apical segments, consistent with diffuse interstitial fibrosis. 5. Moderate mitral regurgitation (regurgitant fraction = 32%) and mild aortic regurgitation (regurgitant fraction = 9%). 6. Dilated left atrium. 7. Mildly dilated ascending aorta measuring up to 4.0 cm. Recommend continued follow-up as per clinical guidelines. 8. Mildly dilated main pulmonary artery which can be seen in the setting of pulmonary hypertension. MACRO: None Signed by: Salvador Medrano 03/20/2023 9:30 AM Dictation workstation: [id number] By: Salvador Medrano, STUDY: MR CARDIAC MORPHOLOGY AND FUNCTION W AND WO IV CONTRAST; 03/20/2023 8:37 am INDICATION: Signs/Symptoms:Abnormal Echo. This study is performed to assess myocardial viability and damage, and to quantitate left ventricular and valvular function. COMPARISON: Echocardiography dated 02/14/2023 ACCESSION NUMBER(S): [id number] ORDERING CLINICIAN: AKHIL CADET TECHNIQUE: Siemens1.5 Nina MRI scanner. Turbo spin echo and balanced steady state free precession (bSSFP) imaging for anatomic definition. Dynamic cine bSSFP for cardiac chamber and wall-motion analysis, and valvular analysis. Flow quantification sequences for hemodynamics. Delayed gadolinium enhancement analysis after injection of gadolinium-chelate (40 mL Dotarem, 0.2 mmol/kg). FINDINGS: CARDIAC CHAMBERS Normal atrioventricular and ventriculoarterial concordance LEFT ATRIUM Dilated (Area-32.6 cm2) RIGHT ATRIUM Borderline dilated (Area-23.9 cm2) INTERATRIAL SEPTUM Intact. LEFT VENTRICLE The left ventricle is dilated with an end-diastolic diameter of 6.8 cm in the base. The basal septum is thickened measuring 1.5 cm. There is more concentric thickening within the mid to apical segments were wall thickness measures up to 2.1 cm. Overall systolic function is hyperdynamic with obliteration of the mid to apical cavity during systole. There are no segmental wall motion abnormalities. Quantitative left ventricular functional values are as follows: EDV = 196 cc; EDVi = 83 cc/m2 ESV = 48 cc; ESVi = 20 cc/m2 Stroke volume = 149 cc; SVi = 63 cc/m2 LVEF = 76 % Absolute Cardiac Output = 8.47 l/min.; COi = 3.58 l/min/m2 LV mass = 275 gm; LVMi = 116 gm/m2 *Alfonzo LOPEZ et al. Normalized left ventricular systolic and diastolic function by steady state free precession cardiovascular magnetic resonance. J Cardiovasc Magn Reson 2006; 8:417-26. [place] T1 values are increased within the mid to apical myocardium, indicative of diffuse interstitial fibrosis. [place] T2 values are normal. There is patchy to diffuse mid myocardial enhancement throughout the thickened mid to apical myocardium. Approximate scar size is 33%. RIGHT VENTRICLE The right ventricle appears normal in size, shape, and has normal qualitative systolic function. No segmental wall motion abnormalities. No abnormal delayed enhancement in the myocardium. INTERVENTRICULAR SEPTUM Intact. AORTIC VALVE There is mild aortic regurgitation. Peak resting velocity is 197 cm/sec with peak gradient of 15 mm Hg and mean gradient of 7 mm Hg. Peak velocity with Valsalva maneuver is 200 cm/sec with peak gradient of 16 mm Hg and mean gradient of 8 mm Hg. Peak velocity across the LVOT is 170 cm/sec with peak gradient of 12 mm Hg and mean gradient of 4 mm Hg. Flow quantification through the ascending aorta: Forward volume =94 cc/beat Reverse volume = 8 cc/beat Net forward volume = 86 cc/beat Aortic regurgitant fraction = 9 % MITRAL VALVE There is moderate mitral regurgitation. No systolic anterior motion of the mitral valve leaflets. Integrating LV volumetric and aortic flow quantification data reveals: Quantitative mitral regurgitant volume = 47 cc/beat Quantitative mitral regurgitant fraction = 32 % TRICUSPID VALVE There is qualitative no tricuspid regurgitation. THORACIC AORTA Thoracic aorta is mildly dilated measuring 4.0 cm at the level of the main pulmonary artery. The arch vessel branching pattern is normal. All the arch branch vessels appear widely patent in their proximal portions. PULMONARY ARTERIES The central pulmonary arteries appear mildly dilated (MPA-3.2 cm). SYSTEMIC AND PULMONARY VEINS Normal systemic venous and pulmonary venous return. The SVC and IVC are of normal caliber. Normal pulmonary venous anatomy. CHEST The chest wall is normal. No significant lymphadenopathy or mass is seen in limited images of the mediastinum. Limited imaging through the lungs reveals no gross abnormalities. No pleural effusion. UPPER ABDOMEN Limited imaging through the upper abdomen reveals no abnormalities of the visualized organs. [facility] MMODALSalvador Medrano MD - 03/20/2023 Interpreted By: Salvador Medrano, STUDY: MR CARDIAC MORPHOLOGY AND FUNCTION W AND WO IV CONTRAST; 03/20/2023 8:37 am INDICATION: Signs/Symptoms:Abnormal Echo. This study is performed to assess myocardial viability and damage, and to quantitate left ventricular and valvular function. COMPARISON: Echocardiography dated 02/14/2023 ACCESSION NUMBER(S): [id number] ORDERING CLINICIAN: AKHIL CADET TECHNIQUE: Siemens1.5 Nina MRI scanner. Turbo spin echo and balanced steady state free precession (bSSFP) imaging for anatomic definition. Dynamic cine bSSFP for cardiac chamber and wall-motion analysis, and valvular analysis. Flow quantification sequences for hemodynamics. Delayed gadolinium enhancement analysis after injection of gadolinium-chelate (40 mL Dotarem, 0.2 mmol/kg). FINDINGS: CARDIAC CHAMBERS Normal atrioventricular and ventriculoarterial concordance LEFT ATRIUM Dilated (Area-32.6 cm2) RIGHT ATRIUM Borderline dilated (Area-23.9 cm2) INTERATRIAL SEPTUM Intact. LEFT VENTRICLE The left ventricle is dilated with an end-diastolic diameter of 6.8 cm in the base. The basal septum is thickened measuring 1.5 cm. There is more concentric thickening within the mid to apical segments were wall thickness measures up to 2.1 cm. Overall systolic function is hyperdynamic with obliteration of the mid to apical cavity during systole. There are no segmental wall motion abnormalities. Quantitative left ventricular functional values are as follows: EDV = 196 cc; EDVi = 83 cc/m2 ESV = 48 cc; ESVi = 20 cc/m2 Stroke volume = 149 cc; SVi = 63 cc/m2 LVEF = 76 % Absolute Cardiac Output = 8.47 l/min.; COi = 3.58 l/min/m2 LV mass = 275 gm; LVMi = 116 gm/m2 *Alfonzo AM et al. Normalized left ventricular systolic and diastolic function by steady state free precession cardiovascular magnetic resonance. J Cardiovasc Magn Reson 2006; 8:417-26. [place] T1 values are increased within the mid to apical myocardium, indicative of diffuse interstitial fibrosis. [place] T2 values are normal. There is patchy to diffuse mid myocardial enhancement throughout the thickened mid to apical myocardium. Approximate scar size is 33%. RIGHT VENTRICLE The right ventricle appears normal in size, shape, and has normal qualitative systolic function. No segmental wall motion abnormalities. No abnormal delayed enhancement in the myocardium. INTERVENTRICULAR SEPTUM Intact. AORTIC VALVE There is mild aortic regurgitation. Peak resting velocity is 197 cm/sec with peak gradient of 15 mm Hg and mean gradient of 7 mm Hg. Peak velocity with Valsalva maneuver is 200 cm/sec with peak gradient of 16 mm Hg and mean gradient of 8 mm Hg. Peak velocity across the LVOT is 170 cm/sec with peak gradient of 12 mm Hg and mean gradient of 4 mm Hg. Flow quantification through the ascending aorta: Forward volume =94 cc/beat Reverse volume = 8 cc/beat Net forward volume = 86 cc/beat Aortic regurgitant fraction = 9 % MITRAL VALVE There is moderate mitral regurgitation. No systolic anterior motion of the mitral valve leaflets. Integrating LV volumetric and aortic flow quantification data reveals: Quantitative mitral regurgitant volume = 47 cc/beat Quantitative mitral regurgitant fraction = 32 % TRICUSPID VALVE There is qualitative no tricuspid regurgitation. THORACIC AORTA Thoracic aorta is mildly dilated measuring 4.0 cm at the level of the main pulmonary artery. The arch vessel branching pattern is normal. All the arch branch vessels appear widely patent in their proximal portions. PULMONARY ARTERIES The central pulmonary arteries appear mildly dilated (MPA-3.2 cm). SYSTEMIC AND PULMONARY VEINS Normal systemic venous and pulmonary venous return. The SVC and IVC are of normal caliber. Normal pulmonary venous anatomy. CHEST The chest wall is normal. No significant lymphadenopathy or mass is seen in limited images of the mediastinum. Limited imaging through the lungs reveals no gross abnormalities. No pleural effusion. UPPER ABDOMEN Limited imaging through the upper abdomen reveals no abnormalities of the visualized organs. IMPRESSION: 1. Left ventricle is normal in size (LVEDVi = 83 mL/m2) with hyperdynamic systolic function (LVEF = 76%). No focal wall motion abnormalities. 2. Asymmetric left ventricular hypertrophy involving the mid septum and apical segments with wall thickness measuring up to 2.1 cm. In addition, there are patchy areas of mid myocardial delayed enhancement involving these segments with approximate scar size of 33%. Overall findings are most suggestive of a hypertrophic cardiomyopathy. No evidence of prior infarction. 3. No evidence of LVOT gradient or systolic anterior motion of the mitral valve. 4. Increased T1 mapping ti (more content not included)...[facility] Work Phone: Radiology Study observation (narrative)[facility] Work Phone: MR Heart WO and W contrast IVOrdered By: Salvador Medrano on [id number] Work Phone: US Heart TransthoracicOrdered By: Elizabeth Sepulveda on [id number] Valve Area by Continuity of Peak Velocity2.17[facility] Work Phone: Aortic Valve Area by Continuity of VTI2.00[facility] Work Phone: AV mn grad7.0[facility] Work Phone: AV pk grad14.6[facility] Work Phone: AV pk vel1.91[facility] Work Phone: LV A4C EF72.8[facility] Work Phone: LVIDd5.80[facility] Work Phone: LVOT diam2.20[facility] Work Phone: [phone] avg E/e' ratio8.20[facility] Work Phone: [phone] E/A ratio1.39[facility] Work Phone: RVSP36.2[facility] Work Phone: [facility] Work Phone: US Heart Transthoracicon 02-14-[address], [address] [place] [address] TRANSTHORACIC ECHOCARDIOGRAM REPORT Patient Name: CRISTIAN Mcadams Physician: [id number] Elizabeth Sepulveda MD Study Date: 02/14/2023 Ordering Provider: [id number] NOMI LUTZ MRN/PID: [id number] Fellow: Nurse: Date of /Age: 4 1960 / 62 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 Optison used as a contrast agent for endocardial border definition. Total contrast used for this procedure was 0.7 mL via IV push. PHYSICIAN INTERPRETATION: Left Ventricle: Left ventricular systolic function is hyperdynamic, with an estimated ejection fraction of 75-80%. There are no regional wall motion abnormalities. The left ventricular cavity size isnormal. Spectral Doppler shows an impaired relaxation pattern of left ventricular diastolic filling. There is evidence of asymmetrical septal hypertrophy. Following Optison infusion apical imaging appears a classic for apical hypertrophic cardiomyopathy. Mild 16 mmHg mid LV dynamic gradient was seen. Left Atrium: The left atrium is normal in size. Right Ventricle: The right ventricle is normal in size. There is normal right ventricular global systolic function. Right Atrium: The right atrium is normal in size. Aortic Valve: The aortic valve appears structurally normal. There is trace to mild aortic valve regurgitation. The peak instantaneous gradient of the aortic valve is 14.6 mmHg. The mean gradient of the aortic valve is 7.0 mmHg. Mitral Valve: The mitral valve is normal in structure. There is trace to mild mitral valve regurgitation. Tricuspid Valve: The tricuspid valve is structurally normal. There is trace to mild tricuspid regurgitation. The Doppler estimated RVSP is slightly elevated at 36.2 mmHg. Pulmonic Valve: The pulmonic valve is structurally normal. There is no indication of pulmonic valveregurgitation. Pericardium: There is no pericardial effusion noted. Aorta: The aortic root is normal. CONCLUSIONS: 1. Left ventricular systolic function is hyperdynamic with a 75-80% estimated ejection fraction. 2. Spectral Doppler shows an impaired relaxation pattern of left ventricular diastolic filling. 3. There is evidence of asymmetrical septal hypertrophy. Following Optison infusion apical imaging appears a classic for apical hypertrophic cardiomyopathy. Mild 16 mmHg mid LV dynamic gradient was seen. 4. Trace to mild mitral valve regurgitation. 5. Slightly elevated RVSP. 6. Trace to mild tricuspid regurgitation. 7. When compared to previous study. The use of Optison seems to define LV architecture better and appears to be highly suggestive of apical hypertrophic cardiomyopathy. Consider cardiac MRI to confirm the diagnosis. QUANTITATIVE DATA SUMMARY: 2D MEASUREMENTS: Normal Ranges: Ao Root d: 2.90 cm (2.0-3.7cm) LAs: 4.40 cm (2.7-4.0cm) RVIDd: 3.00 cm (0.9-3.6cm) IVSd: 1.80 cm (0.6-1.1cm) LVPWd: 1.10 cm (0.6-1.1cm) LVIDd: 5.80 cm (3.9-5.9cm) LVIDs: 4.80 cm LV Mass Index: 162.7 g/m2 LV % FS 17.2 % LV SYSTOLIC FUNCTION BY 2D PLANIMETRY (MOD): Normal Ranges: EF-A4C View: 72.8 % (>=55%) LV DIASTOLIC FUNCTION: Normal Ranges: MV Peak E: 0.78 m/s (0.7-1.2 m/s) MV Peak A: 0.56 m/s (0.42-0.7 m/s) E/A Ratio: 1.39 (1.0-2.2) MV lateral e' 0.10 m/s MV medial e' 0.12 m/s E/e' Ratio: 8.20 (<8.0) MITRAL VALVE: Normal Ranges: MV Vmax: 0.81 m/s (<=1.3m/s) MV peak P.6 mmHg (<5mmHg) MV mean P.0 mmHg (<48mmHg) MITRAL INSUFFICIENCY: Normal Ranges: MR Vmax: 315.00 cm/s AORTIC VALVE: Normal Ranges: AoV Vmax: 1.91 m/s (<=1.7m/s) AoV Peak P.6 mmHg (<20mmHg) AoV Mean P.0 mmHg (1.7-11.5mmHg) LVOT Max Donny: 1.09 m/s (more content not included)...Elizabeth Giordano MD - 02/14/[address], [address] [place] [address] TRANSTHORACIC ECHOCARDIOGRAM REPORT Patient Name: CRISTIAN CHAMBERS [place] Physician: [id number] Elizabeth Sepulveda MD Study Date: 02/14/2023 Ordering Provider: [id number] NOMI LUTZ MRN/PID: [id number] Fellow: Nurse: Date of /Age: 4 1960 / 62 years [employer]ale 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 Optison used as a contrast agent for endocardial border definition. Total contrast used for this procedure was 0.7 mL via IV push. PHYSICIAN INTERPRETATION: Left Ventricle: Left ventricular systolic function is hyperdynamic, with an estimated ejection fraction of 75-80%. There are no regional wall motion abnormalities. The left ventricular cavity size isnormal. Spectral Doppler shows an impaired relaxation pattern of left ventricular diastolic filling. There is evidence of asymmetrical septal hypertrophy. Following Optison infusion apical imaging appears a classic for apical hypertrophic cardiomyopathy. Mild 16 mmHg mid LV dynamic gradient was seen. Left Atrium: The left atrium is normal in size. Right Ventricle: The right ventricle is normal in size. There is normal right ventricular global systolic function. Right Atrium: The right atrium is normal in size. Aortic Valve: The aortic valve appears structurally normal. There is trace to mild aortic valve regurgitation. The peak instantaneous gradient of the aortic valve is 14.6 mmHg. The mean gradient of the aortic valve is 7.0 mmHg. Mitral Valve: The mitral valve is normal in structure. There is trace to mild mitral valve regurgitation. Tricuspid Valve: The tricuspid valve is structurally normal. There is trace to mild tricuspid regurgitation. The Doppler estimated RVSP is slightly elevated at 36.2 mmHg. Pulmonic Valve: The pulmonic valve is structurally normal. There is no indication of pulmonic valveregurgitation. Pericardium: There is no pericardial effusion noted. Aorta: The aortic root is normal. CONCLUSIONS: 1. Left ventricular systolic function is hyperdynamic with a 75-80% estimated ejection fraction. 2. Spectral Doppler shows an impaired relaxation pattern of left ventricular diastolic filling. 3. There is evidence of asymmetrical septal hypertrophy. Following Optison infusion apical imaging appears a classic for apical hypertrophic cardiomyopathy. Mild 16 mmHg mid LV dynamic gradient was seen. 4. Trace to mild mitral valve regurgitation. 5. Slightly elevated RVSP. 6. Trace to mild tricuspid regurgitation. 7. When compared to previous study. The use of Optison seems to define LV architecture better and appears to be highly suggestive of apical hypertrophic cardiomyopathy. Consider cardiac MRI to confirm the diagnosis. QUANTITATIVE DATA SUMMARY: 2D MEASUREMENTS: Normal Ranges: Ao Root d: 2.90 cm (2.0-3.7cm) LAs: 4.40 cm (2.7-4.0cm) RVIDd: 3.00 cm (0.9-3.6cm) IVSd: 1.80 cm (0.6-1.1cm) LVPWd: 1.10 cm (0.6-1.1cm) LVIDd: 5.80 cm (3.9-5.9cm) LVIDs: 4.80 cm LV Mass Index: 162.7 g/m2 LV % FS 17.2 % LV SYSTOLIC FUNCTION BY 2D PLANIMETRY (MOD): Normal Ranges: EF-A4C View: 72.8 % (>=55%) LV DIASTOLIC FUNCTION: Normal Ranges: MV Peak E: 0.78 m/s (0.7-1.2 m/s) MV Peak A: 0.56 m/s (0.42-0.7 m/s) E/A Ratio: 1.39 (1.0-2.2) MV lateral e' 0.10 m/s MV medial e' 0.12 m/s E/e' Ratio: 8.20 (<8.0) MITRAL VALVE: Normal Ranges: MV Vmax: 0.81 m/s (<=1.3m/s) MV peak P.6 mmHg (<5mmHg) MV mean P.0 mmHg (<48mmHg) MITRAL INSUFFICIENCY: Normal Ranges: MR Vmax: 315.00 cm/s AORTIC VALVE: Normal Ranges: AoV Vmax: 1.91 m/s (<=1.7m/s) AoV Peak P.6 mmHg (<20mmHg) AoV Mean P.0 mmHg (1.7-11.5mmHg) LVOT Max Donny: 1.09 m/s (<=1.1m/s) AoV VTI: 38.40 cm (18-25cm) LVOT VTI: 20.20 cm LVOT Diameter: 2.20 cm (1.8-2.4cm) AoV Area, VTI: 2.00 cm2 (2.5-5.5cm2) AoV Area,Vmax: 2.17 cm2 (2.5-4.5cm2) AoV Dimensionless Index: 0.53 AORTIC INSUFFICIENCY: AI Vmax: 1.62 m/s AI Half-time: 764 msec AI Decel Rate: 62.20 cm/s2 TRICUSPID VALVE/RVSP: Normal Ranges: Peak TR Velocity: 2.88 m/s RV Syst Pressure: 36.2 mmHg (< 30mmHg) PULMONIC VALVE: Normal Ranges: PV Max Donny: 0.6 m/s (0.6-0.9m/s) PV Max P.6 mmHg PIEDV: 1.66 m/s PADP: 14.0 mmHg [id number] Elizabeth Sepulveda MD Electronically signed on 02/14/2023 at 12:26:38 PM (more content not included)...[facility] Work Phone: US community outreach ABI [phone] [facility] outreach [facility] [place] [address] Ultrasound Report Signed Patient: Cristian Chambers MR#: [id number] : 1960 Acct:[id number] Age/Sex: 62 / M ADM Date: 12/23/22 Loc: Room: Type: DEP REF Attending Dr: Chas [facility] Ordering Provider: CHAS VILLA Date of Service: 12/23/22 / community outreach JORDAN: SCREENING Copies to: [facility] Screening ankle-brachial index Indication for study: [facility] outreach PROCEDURE: Right arm blood pressure is 158 and left arm blood pressure is 154 mmHg. At the right ankle the posterior tibial pressure is 214 with a right ankle-brachial index of 1.35. At the left ankle the posterior tibial pressure is 207 with an ankle-brachial index of 1.31. Waveforms by plethysmography are pulsatile. / community outreach JORDAN IMPRESSION: No hemodynamically significant peripheral vascular occlusive disease at rest in either lower extremity Impression dictated by: Ramin Dukes M.D.12/25/2022 12:23 PM Dictation Location: [place] [address] Tech: Danniellekarlee Kenyon Transcribed By: FRITZ 12/25/22 1223 Dictated By: Ramin Dukes MD 12/25/223 Signed By: 12/25/221222[facility] carotidon [id number] community outreach [facility] Main [place] [id number] Ultrasound Report Signed Patient: Cristian Chambers MR#: [id number] : 1960 Acct:[id number] Age/Sex: 62 / M ADM Date: 12/23/22 Loc: Room: Type: [facility] Attending Dr: Chas [facility] Ordering Provider: CHAS VILLA Date of Service: 12/23/22 /[facility] outreach carotid: SCREENING Copies to: [facility] Screening carotid duplex examination Indication for study: [facility] PROCEDURE: Color-flow duplex scanning is used to interrogate the extracranial carotid arterial system. Right carotid bifurcation show small amount plaque formation with a highest peak systolic velocity of 88 and an end-diastolic velocity of 34 cm/s in the internal carotid artery. Velocities of the right common carotid artery are normal. The peak systolic velocity ratio is 1.0. Left internal carotid artery shows a highest peak systolic velocity of 99 with an end-diastolic velocity of 40 cm/s. Velocities of the left common carotid artery are normal. The peak systolic velocity ratio is 1.1. /[facility] carotid IMPRESSION: No hemodynamically significant stenosis is seen in either extracranial internal carotid artery. Impression dictated by: Ramin Dukes M.D.12/25/2022 12:23 PM Dictation Location: [place] [address] Tech: Opal Mayorga Transcribed By: FRITZ 12/25/22 1223 Dictated By: Ramin Dukes MD 12/25/22 1219 Signed By: 12/25/221222[facility] community outreach aorta on [id number] community outreach [facility] Main [place] [id number] Ultrasound Report Signed Patient: Cristian Chambers MR#: [id number] : 1960 Acct:[id number] Age/Sex: 62 / M ADM Date: 12/23/22 Loc: Room: Type: REG REF Attending Dr: Chas Villa Ordering Provider: CHAS VILLA Date of Service: 12/23/22 US/US community outreach aorta: SCREENING Copies to: [facility] OUTREACH SCREENING ULTRASOUND OF THE ABDOMINAL AORTA COMPARISON: None Real-time ultrasound evaluation of the abdominal aorta was performed. The proximal aorta is not well seen due to bowel gas. Through the midsegment, the aorta measure 2.2 cm and the width is 1.6 cm. Distally, the diameter measures 2.1 cm and the width measures 1.8 cm. No aneurysm is seen. The bifurcation is visualized and the iliac arteries are normal caliber. There is no periaortic fluid. US/[facility] outreach aorta IMPRESSION: LIMITED VISUALIZATION THE PROXIMAL AORTA. NO AORTIC ANEURYSM. Impression dictated by: Marina Latham M.D.12/23/2022 11:07 AM Dictation Location: [place] [address] Tech: Opal Mayorga Transcribed By: FRITZ 12/23/221106 Dictated By: Marina Latham MD 12/23/221105 Signed By: 12/23/221106[facility]Office [facility] (Cardiology)on [id number]-up visitDiagnoses/Problems Assessed Essential hypertension (401.9) (I10) Hyperlipidemia (272.4) (E78.5) Hypertrophic cardiomyopathy (425.18) (I42.2) Class 2 obesity with body mass index (BMI) of 35.0 to 35.9 in adult (278.00,V85.35) (E66.9,Z68.35) Never a smoker Orders Class 2 obesity with body mass index (BMI) of 35.0 to 35.9 in adult Healthy Weight Tips; Status:Complete - Retrospective Authorization; Done: 23Feb2022 Some eating tips that can help you lose weight.; Status:Complete - Retrospective Authorization; Done: 23Feb2022 Essential hypertension Renew: amLODIPine Besylate 5 MG Oral Tablet; TAKE 1 TABLET DAILY DIRECTED Renew: Metoprolol Succinate ER 50 MG Oral Tablet Extended Release 24 Hour; Take 1 tablet twice daily Hyperlipidemia Renew: Aspirin EC 81 MG Oral Tablet Delayed Release; TAKE 1 TABLET DAILY Renew: Pravastatin Sodium 40 MG Oral Tablet; TAKE 1 TABLET Bedtime Hypertrophic cardiomyopathy Echocardiogram; Status:Hold For - Scheduling,Retrospective Authorization; Requested for:23Feb2022; SocHx: Never a smoker Tobacco Use Screening; Status:Complete; Done: 23Feb2022 Patient Instructions Please bring all medicines, vitamins, and herbal supplements with you when you come to the office. Prescriptions will not be filled unless you are compliant with your follow up appointments or have a follow up appointment scheduled as per instruction of your physician. Refills should be requested at the time of your visit. Follow up in 1 year. Chief Complaint CRISTIAN CHAMBERS is being seen for an annual follow-up of. 61-year-old gentleman who returns for annual visit. He has hypertrophic cardiomyopathy with sigmoidseptum with no outflow tract obstruction and persistent mild essential hypertension. 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 His blood pressure is 144/80 on my recheck. We did review his echo reports, and in fact confirms that he has a 2 cm septum but no obstructive physiology. 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 Current Meds Medication NameInstruction amLODIPine Besylate 5 MG Oral TabletTAKE 1 TABLET DAILY DIRECTED. Aspirin EC 81 MG Oral Tablet Delayed ReleaseTAKE 1 TABLET DAILY. Metoprolol Succinate ER 50 MG Oral Tablet Extended Release 24 HourTake 1 tablet twice daily Pravastatin Sodium 40 MG Oral TabletTAKE 1 TABLET Bedtime Viagra 50 MG Oral TabletTAKE DIRECTED. Allergies Medication No Known Drug Allergies Recorded By: Zarina Guzman; 12/31/2020 12:24:52 PM Social History Problems Caffeine use (V49.89) (Z78.9) 1 SODA DAILY Consumes alcohol (V49.89) (Z78.9) once weekly Never a smoker No illicit drug use Review of Systems Constitutional: not feeling tired. Cardiovascular: no intermittent leg claudication and as noted in HPI. Respiratory: no cough and no shortness of breath. Gastrointestinal: no change in bowel habits and no blood in stools. Integumentary: no skin rashes. Neurological: no seizures and no frequent falls. All other systems have been reviewed and are negative for complaint. Vitals Vital Signs Recorded: 23Feb2022 09:30AMRecorded: 23Feb2022 08:41AM Wlpiazez994, RUE, Jzdqybg687, LUE, Sitting Wemehhdqk68, RUE, Rputmyb24, LUE, Sitting Heart Rate62, L Radial Height6 ft Edskvt960 lb BMI Kxvufuttvt83.26 kg/m2 BSA Calculated2.38 Tobacco Useb) No PHQ-2 #1. Over the last 2 weeks have you felt down, depressed or hopeless? (If yes, answer PHQ-9 below)No PHQ-2 #2. Over the last 2 weeks have you felt little interest or pleasure in doing things? (If yes,answer PHQ-9 below)No Physical Exam Constitutional: alert and in no acute distress. Neck: neck is supple, symmetric, trachea midline, no masses and no thyromegaly . Pulmonary: no increased work of breathing or signs of respiratory distress and lungs clear to auscultation. Cardiovascular: carotid pulses 2+ bilaterally with no bruit , JVP was normal, no thrills , regular rhythm, normal S1 and S2, no murmurs , pedal pulses 2+ bilaterally and no edema . Abdomen: abdomen non-tender, no masses and no hepatomegaly . Skin: skin warm and dry, normal skin turgor . Psychiatric judgment and insight is normal and oriented to person, place and time . Signatures Electronically signed by : Nomi Lutz DO; Feb 23 2022 5:30PM EST (Author) [facility] TouchworksTobacco Screening.on [id number] depression screening assessmentNo-[facility]-[place] [address] DO Work Phone: Tobacco use status CPHSb) [facility] [place] [address] DO Work Phone: Falls Screening (Age 18+)on [id number] risk assessmentc) Not medically indicated[facility] [address] DO Work Phone: Tobacco use status CPHSb) [facility]- [place] [address] DO Work Phone: Office Visit (Cardiology)on [id number]-up visit Diagnoses/Problems Assessed Essential hypertension (401.9) (I10) Class 2 obesity with body mass index (BMI) of 35.0 to 35.9 in adult (278.00,V85.35) (E66.9,Z68.35) Orders Class 2 obesity with body mass index (BMI) of 35.0 to 35.9 in adult Healthy Weight Tips; Status:Complete; Done: [id number] Patient Instructions Please bring all medicines, vitamins, and herbal supplements with you when you come to the office. Prescriptions will not be filled unless you are compliant with your follow up appointments or have a follow up appointment scheduled as per instruction of your physician. Refills should be requested at the time of your visit. PLAN: Through informed decision making process incorporating patients unique circumstances, the followingtreatment plan will be initiated: 1. Prescription drug management of cardiovascular medication for efficacy, adherence to treatment, side effect assessment and polypharmacy. Current treatment clinically warranted and to continue without modifications. 2. Return for follow-up; in the interim, contact the office if new symptoms arise. Dr. Lutz as scheduled Chief Complaint I am doing good CRISTIAN CHAMBERS is being seen for a 2 month follow-up of hypertension. Patient was last evaluated in clinic myself June 2021. Changes to medical regimen at that time norvasc added. Patient has been compliant with changes, denies any side effects. BP at home: SBP 130s Type of machine: arm Time of BP assessment: after meds Has machine been previously calibrated by medical staff? no Otherwise, denies any change to exercise capacity or functional tolerance. Remains active without exertional complaints. History of Present Illness The patient presents for follow-up of essential hypertension. He has no comorbid illnesses. Symptoms: denies impaired vision, denies dyspnea, denies chest pain, denies intermittent leg claudication and denies lower extremity edema. Associated symptoms include no headache. Home monitoring: The patient checks his blood pressure sporadically. Blood pressure control has been good. Medications: the patient is adherent with his medication regimen. He denies medication side effects. Surgical History Problems History of Complete colonoscopy Managed By: Vinny Malcolm MD (Gastroenterology) Past Medical History Problems History of Elevated troponin (790.6) (R77.8) Resolved Date: 19 Jan 2021 History of palpitations (V12.59) (Z87.898) Resolved Date: 19 Jan 2021 Current Meds Medication NameInstruction amLODIPine Besylate 5 MG Oral TabletTAKE 1 TABLET DAILY DIRECTED. Aspirin EC 81 MG Oral Tablet Delayed ReleaseTAKE 1 TABLET DAILY. Metoprolol Succinate ER 50 MG Oral Tablet Extended Release 24 HourTake 1 tablet twice daily Pravastatin Sodium 40 MG Oral TabletTAKE 1 TABLET Bedtime Viagra 50 MG Oral TabletTAKE DIRECTED. Allergies Medication No Known Drug Allergies Recorded By: Zarina Guzman; 12/31/2020 12:24:52 PM Social History Problems Caffeine use (V49.89) (Z78.9) 1 SODA DAILY Consumes alcohol (V49.89) (Z72.89) once weekly Never a smoker No illicit drug use Review of Systems Constitutional: not feeling tired. Cardiovascular: no chest pain, no palpitations and no lower extremity edema. Respiratory: no shortness of breath during exertion, no orthopnea and no PND. Vitals Vital Signs Recorded: [id number] 03:16PMRecorded: [id number] 03:07PM [id number], RUE, Sitting Easlaixal9563, RUE, Sitting Heart Rate56, L Radial Height6 ft Dhrori356 lb BMI Hdpvwtrfbd24.8 kg/m2 BSA Calculated2.4 Tobacco Useb) No Falls Screening (Age 18+)c) Not medically indicated Physical Exam Constitutional: alert and in no acute distress. Neck: neck is supple, symmetric, trachea midline, no masses . Pulmonary: no increased work of breathing or signs of respiratory distress and lungs clear to auscultation. Cardiovascular: JVP was normal, regular rhythm, normal S1 and S2, no murmurs and no edema . Abdomen: abdomen non-tender, no masses . Skin: skin warm and dry, normal skin turgor . Psychiatric oriented to person, place and time and normal mood and affect . Impressions Overall patient is pleased with current state of cardiovascular health. At this time there are no indications for additional cardiovascular testing or need for medication changes. Signatures Akhil Cadet MSN, MANUFACTURING INDUSTRIAL ENGINEER-CREDIT RATING CHECKER, PMHNP-BC [facility] Please excuse any errors in grammar or translation related to this dictation. Voice recognition software was utilized to prepare this document. Electronically signed by : EUN Gutierrez; Aug 29 2021 3:21PM EST (Author)[facility] TouchworksOffice Visit (Cardiology)on [id number]-up visit Diagnoses/Problems Assessed Essential hypertension (401.9) (I10) Class 2 obesity with body mass index (BMI) of 35.0 to 35.9 in adult (278.00,V85.35) (E66.9,Z68.35) Orders Class 2 obesity with body mass index (BMI) of 35.0 to 35.9 in adult Healthy Weight Tips; Status:Complete; Done: 22Jun2021 Essential hypertension Start: amLODIPine Besylate 5 MG Oral Tablet; TAKE 1 TABLET DAILY DIRECTED Patient Instructions Please bring all medicines, vitamins, and herbal supplements with you when you come to the office. Prescriptions will not be filled unless you are compliant with your follow up appointments or have a follow up appointment scheduled as per instruction of your physician. Refills should be requested at the time of your visit. PLAN: Through informed decision making process incorporating patients unique circumstances, the followingtreatment plan will be initiated: 1. Prescription drug management of cardiovascular medication for efficacy, adherence to treatment, side effect assessment and polypharmacy. Current treatment clinically warranted and to continue withfollowing modifications: - Begin amlodipine 5mg po daily 2. Return for follow-up; in the interim, contact the office if new symptoms arise. PATIENT SERVICES SPECIALIST 2 months Encourage healthy lifestyle choices including: - Heart Health Diet: eat plenty of nutrient-rich foods (fruits and veggies, whole grains, lean poultry and fish). Avoid saturated fats, trans fats and excess sodium and sugar. - Get at least 150 minutes per week of moderate-intensity aerobic activity. Brisk walking (at least2.5 miles per hour), water aerobics, gardening, biking slower than 10 miles per hours. Any amount of movement is better than none. The simplest way to get moving and improve your health is to start walking. It's free, easy and can be done just about anywhere, even in place. Even if you have been sedentary for years, today is the day you can begin to make healthy changes in your life. Chief Complaint I am ok CRISTIAN CHAMBERS is being seen for a 1 month follow-up of hypertension. Patient was last evaluated in clinic myself May 2021. Changes to medical regimen at that time toprol increased 50mg BID Patient has been compliant with changes, denies any side effects. BP at home: 150s Type of machine: arm Time of BP assessment: after meds Has machine been previously calibrated by medical staff? no Adhering to 2017 AHA/ACC Guideline for the Prevention, Detection, Evaluation, and Management of High Blood Pressure in Adults: - Encouraged primary lifestyle modifications including consumption of healthy diet, reduced sodium intake, moderation in alcohol intake, weight loss and increased physical activity. History of Present Illness The patient presents for follow-up of essential hypertension. The patient states he has been stablewith his blood pressure control since the last visit. Comorbid Illnesses: left ventricular hypertrophy. Symptoms: denies impaired vision, denies dyspnea, denies chest pain, denies intermittent leg claudication and denies lower extremity edema. Associated symptoms include no headache. Home monitoring: The patient checks his blood pressure regularly. Blood pressure control has been poor. Medications: the patient is adherent with his medication regimen. He denies medication side effects. Surgical History Problems History of Complete colonoscopy Managed By: Yun MADRID, Vinny Beck (Gastroenterology) Past Medical History Problems History of Elevated troponin (790.6) (R77.8) Resolved Date: 19 Jan 2021 History of palpitations (V12.59) (Z87.898) Resolved Date: 19 Jan 2021 Current Meds Medication NameInstruction Aspirin EC 81 MG Oral Tablet Delayed ReleaseTAKE 1 TABLET DAILY. Metoprolol Succinate ER 50 MG Oral Tablet Extended Release 24 HourTake 1 tablet twice daily Pravastatin Sodium 40 MG Oral TabletTAKE 1 TABLET Bedtime Viagra 50 MG Oral TabletTAKE DIRECTED. Allergies Medication No Known Drug Allergies Recorded By: Zarina Guzman; 12/31/2020 12:24:52 PM Social History Problems Caffeine use (V49.89) (Z78.9) 1 SODA DAILY Consumes alcohol (V49.89) (Z72.89) once weekly Never a smoker No illicit drug use Review of Systems Constitutional: not feeling tired. Cardiovascular: no chest pain, no palpitations and no lower extremity edema. Respiratory: no shortness of breath during exertion, no orthopnea and no PND. Vitals Vital Signs Recorded: 22Jun2021 03:07PM Heart Rate68, L Radial Nmcffxxu154, LUE, Sitting Rwikgwgly74, LUE, Sitting Height6 ft Aotyhu344 lb BMI Lwfmvsnecg09.94 kg/m2 BSA Calculated2.4 Tobacco Useb) No PHQ-2 #1. Over the last 2 weeks have you felt down, depressed or hopeless? (If yes, answer PHQ-9 below)No PHQ-2 #2. Over the last 2 weeks have you felt little interest or pleasure in doing things? (If yes,answer PHQ-9 below)No Physical Exam Constitutional: alert and in no acute distres (more content not included)... [facility] TouchworksTobacco Screening.on 23-10-2697Lmccr depression screening assessmentButler [facility] ISpeak 250 DO Work Phone: Tobacco use status CPHSb) [facility] Doujiao DO Work Phone: Office Visit (Cardiology)on 56-18-2029Ymrose-up visit Diagnoses/Problems Assessed Essential hypertension (401.9) (I10) Remains elevated despite increase toprol did not start norvasc Class 2 obesity with body mass index (BMI) of 36.0 to 36.9 in adult (278.00,V85.36) (E66.9,Z68.36) Reviewed the merits of healthy lifestyle choices on overall cardiovascular health. LVH (left ventricular hypertrophy) (429.3) (I51.7) July 2018 cardiac cath: LVEF 85% with severe apical hypertrophy with spade-shaped ventricle. No LVOT obstruction with possible mid ventricular cavity obstructive physiology. Jan 2021 echo: LVEF 70% with asymetrical hypertrophy. Septum 20mm ; Posterior 11mm. No APOLLO or LVOT obstruction. Orders Class 2 obesity with body mass index (BMI) of 36.0 to 36.9 in adult Healthy Weight Tips; Status:Complete; Done: 25May2021 Hypertension Renew: Metoprolol Succinate ER 50 MG Oral Tablet Extended Release 24 Hour; Take 1 tablet twice daily Patient Instructions Please bring all medicines, vitamins, and herbal supplements with you when you come to the office. Prescriptions will not be filled unless you are compliant with your follow up appointments or have a follow up appointment scheduled as per instruction of your physician. Refills should be requested at the time of your visit. PLAN: Through informed decision making process incorporating patients unique circumstances, the followingtreatment plan will be initiated: 1. Prescription drug management of cardiovascular medication for efficacy, adherence to treatment, side effect assessment and polypharmacy. Current treatment clinically warranted and to continue withfollowing modifications: - Increase metoprolol succinate to 50mg twice daily (can take 2 twice a day of what you have at home) 2. Return for follow-up; in the interim, contact the office if new symptoms arise. PATIENT SERVICES SPECIALIST in one month Encourage healthy lifestyle choices including: - Heart Health Diet: eat plenty of nutrient-rich foods (fruits and veggies, whole grains, lean poultry and fish). Avoid saturated fats, trans fats and excess sodium and sugar. - Get at least 150 minutes per week of moderate-intensity aerobic activity. Brisk walking (at least2.5 miles per hour), water aerobics, gardening, biking slower than 10 miles per hours. Any amount of movement is better than none. The simplest way to get moving and improve your health is to start walking. It's free, easy and can be done just about anywhere, even in place. Even if you have been sedentary for years, today is the day you can begin to make healthy changes in your life. Chief Complaint I am doing better CRISTIAN CHAMBERS is being seen for a 3 week follow-up of hypertension. Patient was last evaluated in clinic myself April 2021. Changes to medical regimen at that time metoprolol increased 25mg BID, did not start norvasc. cMRI was not approved to reassess LVOT noted at time of cath July 2018. Patient has been compliant with changes, denies any side effects. Overall, feels like he is doing better. Dizziness has resolved. BP at home: does not check Type of machine: n/a Time of BP assessment: n/a Has machine been previously calibrated by medical staff? n/a Standing BP on my check 148/90 History of Present Illness The patient presents for follow-up of essential hypertension. The patient states he has been doing well with his blood pressure control since the last visit. He has no comorbid illnesses. Symptoms: denies impaired vision, denies dyspnea, denies chest pain, denies intermittent leg claudication and denies lower extremity edema. Associated symptoms include no headache. Home monitoring: The patient is not checking blood pressure at home. Medications: the patient is adherent with his medication regimen. He denies medication side effects. Surgical History Problems History of Complete colonoscopy Managed By: Yun MADRID, Vinny Beck (Gastroenterology) Current Meds Medication NameInstruction Aspirin EC 81 MG Oral Tablet Delayed ReleaseTAKE 1 TABLET DAILY. Metoprolol Succinate ER 25 MG Oral Tablet Extended Release 24 HourTake 1 tablet twice daily Pravastatin Sodium 40 MG Oral TabletTAKE 1 TABLET Bedtime Allergies Medication No Known Drug Allergies Recorded By: Zarina Guzman; 12/31/2020 12:24:52 PM Social History Problems Caffeine use (V49.89) (Z78.9) 1 SODA DAILY Consumes alcohol (V49.89) (Z72.89) once weekly Never a smoker No illicit drug use Review of Systems Constitutional: not feeling tired. Cardiovascular: no chest pain, no palpitations and no lower extremity edema. Respiratory: no shortness of breath during exertion, no orthopnea and no PND. Vitals Vital Signs Recorded: 25May2021 03:12PM Heart Rate64, R Radial Iyscvfxb850, RUE, Sitting Ivcxubbag420, RUE, Sitting Height6 ft Nstnlj616 lb BMI Lwphltemef67.21 kg/m2 BSA Calculated2.41 Tobacco Useb) No Physical Exam Constitutional: alert and in no acute distress. Neck: neck is (more content not included)...[facility] TouchworksTobacco Screening.on [id number] use status CPHSb) [facility] 250 DO Work Phone: Office Visit (Cardiology)on [id number]-up visit Diagnoses/Problems Assessed LVH (left ventricular hypertrophy) (429.3) (I51.7) July 2018 cardiac cath: LVEF 85% with severe apical hypertrophy with spade-shaped ventricle. No LVOT obstruction with possible mid ventricular cavity obstructive physiology. Jan 2021 echo: LVEF 70% with asymetrical hypertrophy. Septum 20mm ; Posterior 11mm. No APOLLO or LVOT obstruction. Essential hypertension (401.9) (I10) Suboptimal on my check standing (c/w what recorded at Dr. Lutz OV) Currently taking toprol 37.5mg daily (25mg in morning, 12.5mg in afternoon) Class 2 obesity with body mass index (BMI) of 37.0 to 37.9 in adult (278.00,V85.37) (E66.9,Z68.37) Reviewed the merits of healthy lifestyle choices on overall cardiovascular health. Orders Essential hypertension Start: amLODIPine Besylate 2.5 MG Oral Tablet (Norvasc); TAKE 1 TABLET DAILY DIRECTED Start: Metoprolol Succinate ER 25 MG Oral Tablet Extended Release 24 Hour (Toprol XL); Take 1 tablet twice daily Patient Instructions Please bring all medicines, vitamins, and herbal supplements with you when you come to the office. Prescriptions will not be filled unless you are compliant with your follow up appointments or have a follow up appointment scheduled as per instruction of your physician. Refills should be requested at the time of your visit. PLAN: Through informed decision making process incorporating patients unique circumstances, the followingtreatment plan will be initiated: 1. Prescription drug management of cardiovascular medication for efficacy, adherence to treatment, side effect assessment and polypharmacy. Current treatment clinically warranted and to continue withfollowing modifications: - Increase toprol 25mg twice daily - Add norvasc 2.5mg po daily 2. cMRI f/u asymmetric septal hypertrophy AND lightheadedness 3. Return for follow-up; in the interim, contact the office if new symptoms arise. PATIENT SERVICES SPECIALIST in 3 weeks Encourage healthy lifestyle choices including: - Heart Health Diet: eat plenty of nutrient-rich foods (fruits and veggies, whole grains, lean poultry and fish). Avoid saturated fats, trans fats and excess sodium and sugar. - Get at least 150 minutes per week of moderate-intensity aerobic activity. Brisk walking (at least2.5 miles per hour), water aerobics, gardening, biking slower than 10 miles per hours. Any amount of movement is better than none. The simplest way to get moving and improve your health is to start walking. It's free, easy and can be done just about anywhere, even in place. Even if you have been sedentary for years, today is the day you can begin to make healthy changes in your life. Chief Complaint Doing ok CRISTIAN CHAMBERS is being seen for a 3 week follow-up of hypertension. Patient was last evaluated in clinic Dr. Lutz Jan 2021. At that time, blood pressure was elevated. Presents today for repeat BP. BP at home: does not check Type of machine: n/a Time of BP assessment: n/a Has machine been previously calibrated by medical staff? n/a Obstructive Sleep Apnea: no prior testing Prior renal USN: no prior testing No history of syncope or family history of SCD. Starting walking daily. On my check standing R: 160/90 and L: 166/90 Patient denies any hospitalizations or significant changes to interval medical history since last office follow-up. Rare occasions of 'little dizzy' and can feel 'heart beat'. Difficult to describes but 'more lightheaded' Surgical History Problems History of Complete colonoscopy Managed By: Vinny Malcolm MD (Gastroenterology) Past Medical History Problems History of Elevated troponin (790.6) (R77.8) Resolved Date: 19 Jan 2021 History of palpitations (V12.59) (Z87.898) Resolved Date: 19 Jan 2021 Current Meds Medication NameInstruction Aspirin EC 81 MG Oral Tablet Delayed ReleaseTAKE 1 TABLET DAILY. Patient did not bring medication list or bottles. Updated verbally with patient Allergies Medication No Known Drug Allergies Recorded By: Zarina Guzman; 12/31/2020 12:24:52 PM Social History Problems Caffeine use (V49.89) (Z78.9) 1 SODA DAILY Never a smoker No illicit drug use Occasional alcohol use 1 WEEKLY Review of Systems Constitutional: not feeling tired. Cardiovascular: no chest pain, no palpitations and no lower extremity edema. Respiratory: no shortness of breath during exertion, no orthopnea and no PND. Vitals Vital Signs Recorded: 12Apr2021 03:26PMRecorded: 12Apr2021 03:21PM Xpbplxrn124, MKD477, LUE, Sitting Vdsgkkwuk46, YEQ330, LUE, Sitting Heart Rate56, L Brachial Artery Height6 ft Aibnft569 lb BMI Aripnlmzkr36.16 kg/m2 BSA Calculated2.44 Tobacco Useb) No PHQ-2 #1. Over the last 2 weeks have you felt down, depressed or hopeless? (If yes, answer PHQ-9 below)No PHQ-2 #2. Over the last 2 weeks have you felt little interest or pleasure in doing things? (If yes,answer PHQ-9 below)No Impressions BP too hi (more content not included)...NormalUH TouchworksTobacco Screening.on [id number] depression screening assessmentNoMP-St[facility] HospitalJason 250 DO Work Phone: Tobacco use status CPHSb) NoMP-[facility] [place] 250 DO Work Phone: Echocardiogramon [phone] [facility] [address], [address] [place] [address] TRANSTHORACIC ECHOCARDIOGRAM REPORT Patient Name: CRISTIAN CHAMBERS Reading Physician: [id number] Elizabeth Sepulveda MD Study Date: 02/01/2021 Referring Physician: [id number] NOMI LUTZ MRN/PID: [id number] PCP: Julio Fuentes Accession/Order#: [id number] Department Location: [facility] Date of : 1960 Fellow: Gender: M Nurse: Admit Date: Shale Planer Operator Helper: Jes Kauffman RDCS, T Height: 182.88 cm CC Report to: Weight: 122.47 kg Study Type: Echocardiogram BSA: 2.42 m2 Blood Pressure: 160 /96 mmHg Diagnosis/ICD: Q86-Ktpiyjuwn (primary) hypertension; I51.7-Cardiomegaly Indication: Hyperlipidemia, Obesity Procedure/CPT: Echo Complete w Full Doppler-72007 Study Detail: The following Echo studies were performed: 2D, M-Mode, Doppler and color flow. PHYSICIAN INTERPRETATION: Left Ventricle: The left ventricular systolic function is normal, with an estimated ejection fraction of 70%. The left ventricular cavity size is normal. Spectral Doppler shows a normal pattern of left ventricular diastolic filling. There is asymmetrical left ventricular hypertrophy with septum measuring 20 mm versus 11 mm for the posterior wall. No clear evidence of LVOT obstruction or APOLLO. Left Atrium: The left atrium is normal in size. Right Ventricle: The right ventricle is normal in size. There is normal right ventricular global systolic function. Right Atrium: The right atrium is normal in size. Aortic Valve: The aortic valve appears structurally normal. There is no evidence of aortic valve regurgitation. The peak instantaneous gradient of the aortic valve is 7.8 mmHg. The mean gradient of the aortic valve is 4.0 mmHg. Mitral Valve: The mitral valve is normal in structure. There is trace to mild mitral valve regurgitation. Tricuspid Valve: The tricuspid valve is structurally normal. No evidence of tricuspid regurgitation. Pulmonic Valve: The pulmonic valve is structurally normal. There is no indication of pulmonic valveregurgitation. Pericardium: There is no pericardial effusion noted. Aorta: The aortic root is normal. CONCLUSIONS: 1. The left ventricular systolic function is normal with a 70% estimated ejection fraction. 2. There is asymmetrical left ventricular hypertrophy with septum measuring 20 mm versus 11 mm for the posterior wall. No clear evidence of LVOT obstruction or APOLLO. 3. When compared to prior study the asymmetrical septal hypertrophy was not previously reported. QUANTITATIVE DATA SUMMARY: 2D MEASUREMENTS: Normal Ranges: Ao Root d: 3.40 cm (2.0-3.7cm) LAs: 4.10 cm (2.7-4.0cm) RVIDd: 2.70 cm (0.9-3.6cm) IVSd: 2.00 cm (0.6-1.1cm) LVPWd: 1.10 cm (0.6-1.1cm) LVIDd: 5.50 cm (3.9-5.9cm) LVIDs: 3.50 cm LV Mass Index: 161.7 g/m2 LV % FS 36.4 % LV DIASTOLIC FUNCTION: Normal Ranges: MV Peak E: 0.68 m/s (0.7-1.2 m/s) MV Peak A: 0.48 m/s (0.42-0.7 m/s) E/A Ratio: 1.42 (1.0-2.2) MV lateral e' 0.06 m/s MV medial e' 0.05 m/s E/e' Ratio: 12.20 (<8.0) MITRAL VALVE: Normal Ranges: MV Vmax: 0.78 m/s (<1.3m/s) MV peak P.5 mmHg (<5mmHg) MV mean P.0 mmHg (<48mmHg) MITRAL INSUFFICIENCY: Normal Ranges: MR Vmax: 354.00 cm/s AORTIC VALVE: Normal Ranges: AoV Vmax: 1.40 m/s (<1.7m/s) AoV Peak P.8 mmHg (<20mmHg) AoV Mean P.0 mmHg (1.7-11.5mmHg) LVOT Max Donny: 1.01 m/s (<1.1m/s) AoV VTI: 29.40 cm (18-25cm) LVOT VTI: 17.90 cm LVOT Diameter: 2.40 cm (1.8-2.4cm) AoV Area, VTI: 2.75 cm2 (2.5-5.5cm2) AoV Area,Vmax: 3.26 cm2 (2.5-4.5cm2) AoV Dimensionless Index: 0.61 AORTIC INSUFFICIENCY: AI Vmax: 2.08 m/s AI Half-time: 197 msec AI Decel Rate: 310.00 cm/s2 PULMONIC VALVE: Normal Ranges: PV Max Donny: 0.7 m/s (0.6-0.9m/s) PV Max P.7 mmHg [id number] Elizabeth Sepulveda MD Electronically signed on 02/02/2021 at 10:45:14 AM Final NormalYampa Valley Medical CenterTowaterbury hospital Screening.on 01-19-2021 Tobacco use status CPHSb) [facility] 250 DO Work Phone: cb AUTO DIFFon [id number] #0.0 103/ulNormal 0.0-0.1[facility] HospitalComment on above:Performed By: #### CBC #### [facility] [address] [address] [address] Denise WeiBasophils/100 WBC (Bld)0.6 %Normal0.2-2.0[facility] Comment on above:Performed By: #### CBC #### [facility] [address] [address] [address] Denise Leslie #0.1 103/ulNormal0.0-0.7The [facility] CenterComment on above: Performed By: #### CBC #### [facility] [address] [address] [address] Denise Villanuevaosinophils/100 WBC (Bld)1.3 %Normal0.9-7.0[facility] Comment on above:Performed By: #### CBC #### [facility] [address] [place] [address] Dr. Denise Villanuevarythrocyte distribution width (RBC) [Ratio]11.9 %Igvktg78.0-15.0 The [facility] CenterComment on above:Performed By: #### CBC #### [facility] [address] [place] [address] Dr. Denise WeiHematocrit (Bld) [Volume fraction]46.0 %Bnkphn91.0-54.0The [facility] CenterComment on above:Performed By: #### CBC #### [facility] [address] [place] [address] Dr. Denise WeiHemoglobin (Bld) [Mass/Vol]15.7 g/sBZqpofp10.0-18.0The [facility] CenterComment on above:Performed By: #### CBC #### [facility] [address] [place] [address] Dr. Denise Ann #0.03 10e3/ulNormal0.00-0.03The [facility] CenterComhenry [facility] on above:Performed By: #### CBC #### [facility] [address] [place] [address] Dr. Denise Ann %0.4 %Normal0.0-0.5The [facility] CenterComhenry [facility] on above: Performed By: #### CBC #### [facility] [address] [place] [address] Dr. Denise BaltazarH #2.1 103/ulNormal1.2-3.8The [facility] CenterComment on above:Performed By: #### CBC #### [facility] [address] [place] [address] Dr. Denise Woomphocytes/100 WBC (Bld)30.7 %Kuoofx63.5-60.0The [facility] on above:Performed By: #### CBC #### [facility] [address] [place] [address] Dr. Denise SmithUAL DIFF REQNONormalThe [facility] CenterComment on above: Performed By: #### CBC #### [facility] [address] [address] [address] Denise Angeles (RBC) [Entitic mass]30.2 ixDcrtxr45.9-34.0The [facility] CenterComment on above:Performed By: #### CBC #### [facility] [address] [place] [address] Dr. Denise Angeles (RBC) [Mass/Vol]34.1 g/kAQhwnhw49.9-35.2The [facility] HospitalComment on above:Performed By: #### CBC #### [facility] [address] [place] [address] Dr. Denise Angeles (RBC) [Entitic vol]88.5 lPQnsqjo76.0-94.0The [facility] CenterComment on above:Performed By: #### CBC #### [facility] [address] [place] [address] Dr. Denise Baer #0.7 103/ulNormal0.3-0.8The [facility] CenterComment on above:Performed By: #### CBC #### [facility] [address] [place] [address] Dr. Denise Leachocytes/100 WBC (Bld)9.6 %Normal1.7-12.0The [facility] Comment on above:Performed By: #### CBC #### [facility] [address] [place] [address] Dr. Denise Melton #3.9 103/ulNormal1.4-6.5The [facility] CenterComment on above:Performed By: #### CBC #### [facility] [address] [place] [address] Dr. Denise Mendenhallutrophils/100 WBC (Bld)57.4 %Mkfpbm62.0-75.0The [facility] CenterComment on above:Performed By: #### CBC #### [facility] [address] [place] [address] Dr. Denise Squireslet mean volume (Bld) [Entitic vol]11.2 fLNormal9.5-13.5The [facility] CenterComment on above:Performed By: #### CBC #### [facility] [address] [address] [address] Denise AnneT182 103/bzCtiepc226-593Pxq [facility] CenterComment on above: Performed By: #### CBC #### [facility] [address] [address] [address] Denise WeiRBC5.20 106/ulNormal4.70-6.10The [facility] CenterComment on above:Performed By: #### CBC #### [facility] [address] [place] [address] Dr. Denise WeiWBC6.8 103/ulNormal4.0-11.0The [facility] CenterComhenry [facility] on above: Performed By: #### CBC #### [facility] [address] [place] [address] Dr. Denise GermanID PROFILEon [id number]-HDL RATIO [facility] on above:Result Comment: 3.3 - 4.4 LOW RISK 4.4 - 7.1 AVERAGE RISK 7.1 - 11.0 MODERATE RISK >11.0 HIGH RISKPerformed By: #### LIPID, CMP #### [facility] [address] [place] [address] Dr. Denise WeiCholesterol [Mass/Vol]162 mg/dLNormal<=200[facility] Comment on above:Performed By: #### LIPID, CMP #### [facility] [address] [place] [address] Dr. Denise Meléndezesterol in HDL [Mass/Vol]48 mg/dLCommunity Regional Medical Center Comment on above:Performed By: #### LIPID, CMP #### [facility] [address] [place] [address] Dr. Denise Meléndezesterol in LDL [Mass/Vol]95.6 mg/dLCommunity Regional Medical CenterComhenry [facility] on above:Performed By: #### LIPID, CMP #### [facility] [address] [place], [place] [address] Dr. Denise WeiCholesterol.total/Cholesterol in HDL [Mass ratio]3.4 {ratio} NormalThe [facility] CenterComment on above:Performed By: #### LIPID, CMP #### [facility] [address] [place] [address] Dr. Denise Ibarra NORMAL> or = 60 mg/dl - LOW CARDIOVASCULAR RISK <40 mg/dl - HIGH CARDIOVASCULAR RISKCommunity Regional Medical CenterComment on above:Performed By: #### LIPID, CMP #### [facility] [address] [place] [address] Dr. Denise WeiLDL CALC NORMALSEE BELOWCommunity Regional Medical CenterComment on above:Result Comment: <100 mg/dl OPTIMAL 100 - 129 mg/dl NEAR OR ABOVE OPTIMAL 130 - 159 mg/dl BORDERLINE HIGH 160 - 189 mg/dl HIGH >190 mg/dl VERY HIGH Performed By: #### LIPID, CMP #### [facility] [address] [place] [address] Dr. Denise WeiTriglyceride [Mass/Vol]92 mg/dLNormal<=150[facility] Comment on above:Performed By: #### LIPID, CMP #### [facility] [address] [place] [address] Dr. Denies StreeterLDL CALC18.4 mg/dLNoGreene Memorial HospitalComment on above: Performed By: #### LIPID, CMP #### [facility] [address] [place] [address] Dr. Denise WeiPROF 14(COMP METB)on [id number] [Mass/Vol]3.9 g/dLNormal 3.5-5.0[facility] HospitalComment on above:Performed By: #### LIPID, CMP #### [facility] [address] [place] [address] Dr. Denise WeiAlbumin/Globulin [Mass ratio]1.3 {ratio}NormalThe [facility] CenterComment on above:Performed By: #### LIPID, CMP #### [facility] [address] [place] [address] Dr. Denise Khan [Catalytic activity/Vol]35 U/LCritically bqz41-144Vov [facility] CenterComment on above:Performed By: #### LIPID, CMP #### [facility] [address] [address] [address] Denise Chavez [Catalytic activity/Vol]40 U/TCppejt06-38Ajk [facility] CenterComment on above:Performed By: #### LIPID, CMP #### [facility] [address] [address] [address] Denise Atkinson gap [Moles/Vol]11.4 mmol/LNormalMercer County Community Hospital Comment on above:Performed By: #### LIPID, CMP #### [facility] [address] [place] [address] Dr. Denise WeiAST [Catalytic activity/Vol]30 U/LKkoutn80-90Wwa [facility] CenterComment on above:Performed By: #### LIPID, CMP #### [facility] [address] [place] [address] Dr. Denise WeiBilirubin [Mass/Vol]0.6 mg/dLNormal0.2-1.3TMercy Health Fairfield Hospital Comment on above:Performed By: #### LIPID, CMP #### [facility] [address] [place] [address] Dr. Denise WeiCalcium [Mass/Vol]9.1 mg/dLNormal8.4-10.2[facility] Comment on above:Performed By: #### LIPID, CMP #### [facility] [address] [place] [address] Dr. Denise WeiChloride [Moles/Vol]105 mmol/CWaenaa64-631Nne [facility] Comment on above:Performed By: #### LIPID, CMP #### [facility] [address] [place] [address] Dr. Denise WeiCO2 [Moles/Vol]30.1 mmol/LCritically high22.0-30.0The [facility] CenterComment on above:Performed By: #### LIPID, CMP #### [facility] [address] [place] [address] Dr. Denise WeiCreatinine [Mass/Vol]0.90 mg/dLNormal0.66-1.25The [facility] CenterComment on above:Performed By: #### LIPID, CMP #### [facility] [address] [address] [address] Denise VillanuevaGFR-AF TONGAN>60Normal>=60The [facility] CenterComment on above:Performed By: #### LIPID, CMP #### [facility] [address] [address] [address] Denise VillanuevaGFR-NON AF TONGAN>60Normal>=60The [facility] CenterComment on above:Performed By: #### LIPID, CMP #### [facility] [address] [address] [address] Denise WeiGlobulin (S) [Mass/Vol]3.1 g/dLNormalThAvita Health System Bucyrus HospitalComment on above:Performed By: #### LIPID, CMP #### [facility] [address] [address] [address] Denise WeiGlucose [Mass/Vol]109 mg/dLCritically xzok76-467BtsMercer County Community HospitalComment on above:Performed By: #### LIPID, CMP #### [facility] [address] [place] [address] Dr. Denise WeiPotassium [Moles/Vol]4.5 mmol/LNormal3.4-5.0[facility] Comment on above:Performed By: #### LIPID, CMP #### [facility] [address] [place] [address] Dr. Denise WeiProtein [Mass/Vol]7.0 g/dLNormal6.1-8.2The [facility] Comment on above:Performed By: #### LIPID, CMP #### [facility] [address] [address] [address] Denise WeiSodium [Moles/Vol]142 mmol/KApxyxb271-545OtqMercer County Community Hospital Comment on above:Performed By: #### LIPID, CMP #### [facility] [address] [address] [address] Denise WeiUrea nitrogen [Mass/Vol]20.0 mg/dLNormal9.0-20.0[facility] HospitalComment on above:Performed By: #### LIPID, CMP #### [facility] [address] [address] [address] Denise WeiUrea nitrogen/Creatinine [Mass ratio]22.2 mg/mgNormalThe [facility] CenterComment on above:Performed By: #### LIPID, CMP #### [facility] [address] [address] [address] Denise Wei Vital Signs Date TimeVital SignValuePerforming WfeayfmlnRoylesgt39-72-6520 15:45-0400Body paxvyy603.88 cmBenjamin Ball DO Work Phone: [phone])[address]10-24-2025 15:45-0400 Body mass index (BMI) [Ratio]35.8 kg/t3Lwmsohur Ball DO Work Phone: [phone])[address] [place], [place] 747[address]10-24-2025 15:45-0400 Body .74 kgBenjamin Ball DO Work Phone: [phone])[address] [place], [place] 747[address]10-24-2025 15:45-0400 Diastolic blood tqehxflp59 mm[Hg]Julio Ball DO Work Phone: [phone])[address] [place], [place] [address]47[address]10-24-2025 15:45-0400 Heart rate93 /minBenjamin Ball DO Work Phone: [phone] [place], [place] [address]2110-24-2025 15:45-0400 Systolic blood vxkujtrc268 mm[Hg]Julio Ball DO Work Phone: [phone])[address]08-14-2025 15:33-0400 Body jwildo226.9 cmKareem Dolce DPM FACFAS Work Phone: [facility] HealthcareIxjmxrybax59-41-7427 15:33-0400Body mass index (BMI) [Ratio]34.58 kg/d1Ycjbrh Dolce DPM FACFAS Work Phone: [phone] [place], [place] [address]Gezmbleddx64-37-2344 15:33-0400Body ucxonu399.67 kgKareem Dolce DPM FACFAS Work Phone: [phone] [place], [place] [address]Tyjcdkvvxp10-23-8909 14:31-0400Body yfmweh498.9 cmAna Fishmanrias DO Work Phone: [facility]08-12-2025 14:31-0400 Body mass index (BMI) [Ratio]36.08 kg/r7WjhejvkAna Fishmanrias DO Work Phone: [phone]08-12-2025 14:31-0400 Body .66 kgArichaeabhishek FishmanMerry DO Work Phone: [phone]-[facility]08-12-2025 14:31-0400 Diastolic blood irgtfznh07 mm[Hg]Ana Ariascharias DO Work Phone: [phone]08-12-2025 14:31-0400 Heart rate58 /minMicallegra Fishmanrias DO Work Phone: [phone]08-12-2025 14:31-0400 SaO2% (BldA) [Mass fraction]96 %Ana Merry DO Work Phone: [phone]08-12-2025 14:31-0400 Systolic blood rhdkoxuh222 mm[Hg]Aan Sousa DO Work Phone: [facility]07-24-2025 15:10-0400 Body cavmpy827.9 cmKareem Dolce DPM FACFAS Work Phone: [phone] [place], [place] [address]Druxfjdjyh99-61-4495 15:10-0400Body mass index (BMI) [Ratio]34.58 kg/y6Fqbxgh Dolce DPM FACFAS Work Phone: [phone])274-[address] [place], [place] [address]Trxgcewvqu20-41-0280 15:10-0400Body vtlkiu352.67 kgKareem Dolce DPM FACFAS Work Phone: [phone]07-15-2025 15:33-0400Body sxirbr989.9 cmWiliana Lutz DO Work Phone: [phone])[address]07-15-2025 15:33-0400 Body mass index (BMI) [Ratio]35.53 kg/x2IyrgnfuNomi Zamarripadon DO Work Phone: [phone]07-15-2025 15:33-0400 Body awubgj709.84 kgWiliana Zamarripadon DO Work Phone: [phone])[address]07-15-2025 15:33-0400 Diastolic blood hvifdano47 mm[Hg]Nomi Lutz DO Work Phone: [phone])[address]07-15-2025 15:33-0400 Heart rate50 /minNomi Lutz DO Work Phone: [phone])[address]07-15-2025 15:33-0400 Systolic blood ahjoyylz398 mm[Hg]Nomi Lutz DO Work Phone: [phone])[address]04-11-2025 12:18-0400 Diastolic blood dlrrriqa56 mm[Hg]Fozia Ramos MD Work Phone: [phone]04-11-2025 12:18-0400 Systolic blood uspflsod226 mm[Hg]Fozia Ramos MD Work Phone: [phone])[address]04-11-2025 11:57-0400 Body nmimzc334.9 cmFozia Ramos MD Work Phone: [phone]04-11-2025 11:57-0400 Body mass index (BMI) [Ratio]36.62 kg/m2Fozia Ramos MD Work Phone: [phone]04-11-2025 11:57-0400 Body upayvj252.47 kgFozia Ramos MD Work Phone: [phone])[address]04-11-2025 11:57-0400 Heart rate53 /Garrick Ramos MD Work Phone: [phone])[address]03-27-2025 10:49-0400 Body ehfuernhdat61.7 [degF]Fozia Ramos MD Work Phone: [phone]03-27-2025 10:49-0400 Diastolic blood eqbmomrz05 mm[Hg]Fozia Ramos MD Work Phone: [phone])[address]03-27-2025 10:49-0400 Heart rate53 /Garrick Ramos MD Work Phone: [phone])[address]03-27-2025 10:49-0400 Respiratory rate18 /Garrick Ramos MD Work Phone: [phone])[address]03-27-2025 10:49-0400 SaO2% (BldA) [Mass fraction]98 %Fozia Ramos MD Work Phone: [phone]03-27-2025 10:49-0400 Systolic blood orgthmzi793 mm[Hg]Fozia Ramos MD Work Phone: [phone]03-24-2025 08:15-0400 Body .9 cmFozia Ramos MD Work Phone: [phone])[address]03-24-2025 08:15-0400 Body mass index (BMI) [Ratio]34.68 kg/m2Fozia Ramos MD Work Phone: [phone]03-24-2025 08:15-0400 Body laynxb519 kgFozia Ramos MD Work Phone: [phone])[address]02-11-2025 08:47-0500 Diastolic blood oilzfubf64 mm[Hg]Fozia Ramos MD Work Phone: [phone]02-11-2025 08:47-0500 Systolic blood shlsmjly466 mm[Hg]Fozia Ramos MD Work Phone: [phone])[address]02-11-2025 07:31-0500 Body vidmrt466.9 cmFozia Ramos MD Work Phone: [phone]02-11-2025 07:31-0500 Body mass index (BMI) [Ratio]34.58 kg/m2Fozia Ramos MD Work Phone: [phone]02-11-2025 07:31-0500 Body bsoszy505.67 kgFozia Ramos MD Work Phone: [phone]02-11-2025 07:31-0500 Heart rate79 /Garrick Ramos MD Work Phone: [phone])[address]01-30-2025 09:06-0500 Body sewmyz839.9 cmWilljimmy Bolivar DO Work Phone: [phone])[address]01-30-2025 09:06-0500 Body mass index (BMI) [Ratio]34.99 kg/e8Ogoztvh Bolivar DO Work Phone: [phone])[address]01-30-2025 09:06-0500 Body adduws442.03 kgWiliana Bolivar DO Work Phone: [phone])[address]01-30-2025 09:06-0500 Diastolic blood yqqhsuvb33 mm[Hg]Nomi Bolivar DO Work Phone: [phone])[address]01-30-2025 09:06-0500 Heart rate80 /minNomi Zamarripadon DO Work Phone: [phone])[address]01-30-2025 09:06-0500 Systolic blood druychbn848 mm[Hg]Nomi Lutz DO Work Phone: [phone]01-13-2025 16:01-0500 Body vglmib514.9 [facility] 16:01-0500Body mass index (BMI) [Ratio]35.94 kg/m2[facility]01-13-2025 16:01-0500Body uhlwbf056.2 kgKind[facility]01-13-2025 16:01-0500Diastolic blood pressure 100 mm[Hg]Сергей [facility]01-13-2025 16:01-0500 Heart nmxo340 /minСергей [facility]01-13-2025 16:01-0500Systolic blood uoxknvph743 mm[Hg]Сергей Corea [facility]08-12-2024 15:55-0400Body zrahyo401.3 cmMicallegra Fishmanrias DO Work Phone: [facility]08-12-2024 15:55-0400 Body mass index (BMI) [Ratio]36.82 kg/b0Zikazlvallegra Fishmanrias DO Work Phone: [facility]08-12-2024 15:55-0400 Body vclpuz632.75 kgMichaeabhishek FishmanMerry DO Work Phone: [facility]08-12-2024 15:55-0400 Diastolic blood mm[Hg]Ana Sousa DO Work Phone: [facility]08-12-2024 15:55-0400 Heart rate78 /minAna Fishmanrias DO Work Phone: [facility]08-12-2024 15:55-0400 SaO2% (BldA) [Mass fraction]98 %Ana Sousa DO Work Phone: [facility]08-12-2024 15:55-0400 Systolic blood mm[Hg]Ana Sousa DO Work Phone: [facility]02-06-2024 08:00-0500 Body pxmbqe220 [address]02-06-2024 08:00-0500Body mass index (BMI) [Ratio]35.32 kg/m2[facility] [address] [place] [address] 03-20-2023 08:00-0500Body bvjiji528 [address] [place] [address] 03-09-2023 14:06-0500Body vfiklu633.9 cmNomi Lutz DO Work Phone: [facility]01-26-2024 14:06-0500 Body mass index (BMI) [Ratio]34.99 kg/v2YwvmnbyNomi Lutz DO Work Phone: [facility]01-26-2024 14:06-0500 Body gjqmzo055.03 kgNomi Lutz DO Work Phone: [address] [place], [place] 0187601-26-2024 14:06-0500 Diastolic blood vugxvbzq61 mm[Hg]Nomi Lutz DO Work Phone: [facility]01-26-2024 14:06-0500 Heart rate60 /minNomi Lutz DO Work Phone: [phone] [place], [place] 1342001-26-2024 14:06-0500 Systolic blood sanrtpkf553 mm[Hg]Nomi Lutz DO Work Phone: 5(633)443-[address] [place], [place] 1342001-03-2024 07:34-0500 Body kmqurm089.[address] [place], [place] 7057501-03-2024 07:34-0500 Body mass index (BMI) [Ratio]35.26 kg/m2Ely [address] [place] [address] 02-14-2023 07:34-0500Body .[address] [place] [address] 11-15-2022 09:00-0400Body didkqm218.88 cmBenjamin Ball Other [employer] Other [id number] 09:00-0400Body mass index (BMI) [Ratio] 35.29 kg/y5Rbhuswdo Ball Other [employer] Other [id number] 09:00-0400Body .03 kgBenjamin Ball Other [employer] Fam[employer] Other 10-04-2023 09:00-0400Diastolic blood edgzrrts93 mm[Hg] Julio Ball Other [employer] [place] [employer] Other 10-04-2023 09:00-0400Respiratory rate12 /minBenjamin Ball Other [facility] [employer] Other 10-04-2023 09:00-0400Systolic blood mm[Hg] Julio Ball Other [facility] [employer] Other 01-12-2023 09:30-0500Diastolic blood ywxokgaz04 mm[Hg] Julio E Ball Work Phone: 1(887) [phone]-Tfbal [place] [employer] 250 DO Work Phone: 1(452) 418-785401-12-2023 09:30-0500Systolic blood rjvahjtx100 mm[Hg] Julio E Ball Work Phone: 1(255) [phone]-Qkmpl [place] [employer] 250 DO Work Phone: 1(432) 541-288601-12-2023 08:41-0500Body .88 cmBenjamin E Ball Work Phone: 1(292) [phone]-Geqzq [place] [employer] 250 DO Work Phone: 1(431) 741-126601-12-2023 08:41-0500Body mass index (BMI) [Ratio] 35.26 kg/w5Fnalmojl E Ball Work Phone: 1(138) [phone]-Nvzdq [place] [employer] 250 DO Work Phone: 1(419) 745-214501-12-2023 08:41-0500Body surface area Derived from formula2.38 r3Xzebcygp E Ball Work Phone: 1(128) [phone]-Rggbd [place] [facility] 250 DO Work Phone: 1(493) 882-570001-12-2023 08:41-0500Body akhear408.94 kgBenjamin E Ball Work Phone: 1(772) [phone]-Gwpsx [place] [facility] 250 DO Work Phone: 1(951) 914-602101-12-2023 08:41-0500Diastolic blood oxzjfymw69 mm[Hg] Julio E Ball Work Phone: mp849-6655ZL-XpjxzMer[facility]-[place] 250 DO Work Phone: 1(513) 210-910901-12-2023 08:41-0500Heart rate62 /minBenjamin E Ball Work Phone: mp943-9041VS-UhjykMercy Hospital Of [facility]-[place] 250 DO Work Phone: 1(494) 871-894801-12-2023 08:41-0500Systolic blood presmcrd970 mm[Hg] Julio Urbina Ball Work Phone: 1(791) [phone]-KbquaMaple Grove Hospitalusky 250 DO Work Phone: 1(788) 770-319107-18-2022 15:16-0400Diastolic blood yhekswws78 mm[Hg] Julio Urbina Ball Work Phone: mp494-4818LY-IargzMayo Clinic Hospitalusky 250 DO Work Phone: 1(312) 225-166607-18-2022 15:16-0400Systolic blood oiqwaseq130 mm[Hg] Julio Urbina Ball Work Phone: 1(787) [phone]-OdxwjEssentia Healthy 250 DO Work Phone: 1(174) 314-442907-18-2022 15:07-0400Body tsbduv738.88 cmBenjamin E Ball Work Phone: 1(700) [phone]-BlqpgMaple Grove Hospitalusky 250 DO Work Phone: 1(627) 510-930807-18-2022 15:07-0400Body mass index (BMI) [Ratio]35.8 kg/d3Wammtzzs E Ball Work Phone: 1(397) [phone]-PozkrEssentia Healthy 250 DO Work Phone: 1(639) 138-281807-18-2022 15:07-0400Body surface area Derived from formula2.4 e9Rwcfhxph E Ball Work Phone: mp565-9211BU-FwvptSandstone Critical Access Hospitaly 250 DO Work Phone: 1(331) 577-716007-18-2022 15:07-0400Body .75 kgBenjamin E Ball Work Phone: 1(961) [phone]-BokclEssentia Healthy 250 DO Work Phone: 1(943) 549-720007-18-2022 15:07-0400Diastolic blood ymeujatw11 mm[Hg] Julio E Ball Work Phone: mp614-6643LJ-Ivejr [place] [facility] 250 DO Work Phone: 1(710) 411-826607-18-2022 15:07-0400Heart rate56 /minBenjamin E Ball Work Phone: mp968-7903KM-Yhlqb [place] [facility] 250 DO Work Phone: 1(982) 840-602907-18-2022 15:07-0400Systolic blood jiltccak298 mm[Hg] Julio E Ball Work Phone: mp864-2239ZC-Diasb [place] [facility] 250 DO Work Phone: 1(707) 499-948705-11-2022 15:07-0400Body frzatm018.88 cmBenjamin E Ball Work Phone: mp923-1549VW-JbihwMercy Hospital Of [facility]on Rapids-Jason 250 DO Work Phone: 1(365)910-302-230934-64 15:07-0400Body mass index (BMI) [Ratio] 35.94 kg/d6Pvgpaegy E Ball Work Phone: mp979-2719CI-Mkiob [place] [facility] 250 DO Work Phone: 1([phone]-6248 15:07-0400Body surface area Derived from formula2.4 x3Zikknjep E Ball Work Phone: mp351-4907YD-Zyhkp [place] [facility] 250 DO Work Phone: 1(657)285-862-218116-36 15:07-0400Body .2 kgBenjamin E Ball Work Phone: mp249-8444AK-Orwci [place] [facility] 250 DO Work Phone: 1(819) 757-310005-11-2022 15:07-0400Diastolic blood jugiefxh33 mm[Hg] Julio E Ball Work Phone: mp763-2388RQ-Zuwqp [place] [facility] 250 DO Work Phone: 1(304) 301-411505-11-2022 15:07-0400Heart rate68 /minBenjamin E Ball Work Phone: mp399-7043XW-Eldvu [place] [facility] 250 DO Work Phone: 1(550) 710-426205-11-2022 15:07-0400Systolic blood vxtsjodv778 mm[Hg] Julio E Ball Work Phone: mp503-3008YA-MhixuMercy Hospital Of [facility]-[place] 250 DO Work Phone: 1(532) 716-263604-13-2022 15:12-0400Body bgpqiz248.88 cmBenjamin E Ball Work Phone: 1(503) [phone]-TghswAlomere Health HospitalHuxiu.comJason 250 DO Work Phone: 1(320) 425-267604-13-2022 15:12-0400Body mass index (BMI) [Ratio] 36.21 kg/r8Ljytbdkf E Ball Work Phone: mp407-2351GY-ByhpjMercy Hospital Of Coon RapidsHuxiu.comJason 250 DO Work Phone: 1(659) 421-250704-13-2022 15:12-0400Body surface area Derived from formula2.41 w1Safzdnwb E Ball Work Phone: 1(889) 888-3238822-5613ME-XqnstMaple Grove Hospitalusky 250 DO Work Phone: 1(657) 327-812704-13-2022 15:12-0400Body gablme754.11 kgBenjamin E Ball Work Phone: mp805-5586ID-DfvgyMayo Clinic Hospitalusky 250 DO Work Phone: 1(999) 316-715304-13-2022 15:12-0400Diastolic blood nxljnixz419 mm[Hg]Julio E Ball Work Phone: 1(365) [phone]-MzavrMaple Grove Hospitalusky 250 DO Work Phone: 1(855) 803-914704-13-2022 15:12-0400Heart rate64 /minBenjamin E Ball Work Phone: mp471-6330FM-QfvieSandstone Critical Access Hospitaly 250 DO Work Phone: 1(537) 783-396504-13-2022 15:12-0400Systolic blood supfghgq388 mm[Hg] Julio E Ball Work Phone: 1(592) 153-5063989-2425PC-PgatkEssentia Healthy 250 DO Work Phone: 1(646) 846-495503-01-2022 15:26-0500Diastolic blood asqypmwi55 mm[Hg] Julio E Ball Work Phone: mp271-5155QA-Hjqha [place] [facility] 250 DO Work Phone: 1(786) 535-652803-01-2022 15:26-0500Systolic blood doxbvrrv007 mm[Hg] Julio E Ball Work Phone: mp306-5842XQ-OsihpSandstone Critical Access Hospitaly 250 DO Work Phone: 1(392) 182-431503-01-2022 15:21-0500Body kuumrg121.88 cmBenjamin E Ball Work Phone: mp830-8016QR-HeurbSandstone Critical Access Hospitaly 250 DO Work Phone: 1(240) 253-966803-01-2022 15:21-0500Body mass index (BMI) [Ratio] 37.16 kg/n8Btfqzcju E Ball Work Phone: mp361-0479XG-HcjwbSandstone Critical Access Hospitaly 250 DO Work Phone: 1(030)[phone]-6175 15:21-0500Body surface area Derived from formula2.44 i4Uygczwls E Ball Work Phone: mp739-2515DP-CxadfSandstone Critical Access Hospitaly 250 DO Work Phone: 1(595) 915-370303-01-2022 15:21-0500Body vukgbw866.29 kgBenjamin E Ball Work Phone: mp958-0073VF-DhknrSandstone Critical Access Hospitaly 250 DO Work Phone: 1(997) 845-168903-01-2022 15:21-0500Diastolic blood rijxemae552 mm[Hg]Julio E Ball Work Phone: mp986-1934RS-SdzqiMayo Clinic Hospitalusky 250 DO Work Phone: 1(800) 885-805903-01-2022 15:21-0500Heart rate56 /minBenjamin E Ball Work Phone: mp275-5673NZ-UrwvrMercy Hospital Of Coon Rapids-[place] 250 DO Work Phone: 1(764) 243-661003-01-2022 15:21-0500Systolic blood wvkghhly702 mm[Hg] Julio E Ball Work Phone: mp127-0310RM-Ojpfd [place] [facility] 250 DO Work Phone: 1(168) 565-174812-21-2021 14:30-877478 1Benjamin E Ball Work Phone: mp914-5306FV-Bbbxx [place] [facility] 250A [place] Work Phone: Comment on above:BBZFBGQG4852-05-5031 09:46-0500Body apszln420.88 cmBenjamin E Ball Work Phone: 1(958) [phone]-Jmylc [place] [facility] 250 DO Work Phone: 1(366) 992-201412-08-2021 09:46-0500Body mass index (BMI) [Ratio] 36.62 kg/m9Lhzothvd E Ball Work Phone: mp594-5033XB-Twhkm [place] [facility] 250 DO Work Phone: 1(181) 980-626412-08-2021 09:46-0500Body surface area Derived from formula2.42 b9Ovkdxifz E Ball Work Phone: mp905-4816CD-Kgkbp [place] [facility] 250 DO Work Phone: 1(857) 458-570112-08-2021 09:46-0500Body resfrl732.47 kgBenjamin E Ball Work Phone: 1(683) 267-5907408-2582RA-OqxwqAlomere Health Hospital-[place] 250 DO Work Phone: 1(416) 863-168812-08-2021 09:46-0500Diastolic blood mm[Hg]Julio E Ball Work Phone: 1(646) [phone]-Ctvbf [place] [facility] 250 DO Work Phone: 1(100) 730-657512-08-2021 09:46-0500Heart rate56 /minBenjamin E Ball Work Phone: mp950-1992JS-Zytpt [place] [facility] 250 DO Work Phone: 1(580) 274-701112-08-2021 09:46-0500Systolic blood szzlceav965 mm[Hg] Julio E Ball Work Phone: mp662-5159IB-Tkgai [place] [facility] 250 DO Work Phone: Encounters Encounter DateEncounter TypeCare ProviderFaciladams county hospitalStart: 12-05-2024 End: 07-43-8338qzesytjhqpFvpfsdwy Ball DO Work Phone: -[facility] ClinicStart: 12-05-2024 End: 33-67-7130Fnsekwd encounter procedureBejessica Fuentes DO-[facility] Work Phone: Start: 09-25-2024 End: 92-59-0118Tqxrgo outpatient visit 15 minutesKareem R Dolce DPM FACFAS Work Phone: noms NMA PODComment on above:Abscess of great toenail of left foot (Primary Dx); Abscess of great toenail of right footStart: 09-25-2024 End: 71-08-2514gssdodhdqvYVFBMO R DOLCENot AvailableStart: 09-25-2024 End: 94-53-6576Idqeyc flowsheetKareem R Dolce DPM FACFAS Work Phone: [facility]oms [facility]: 09-25-2024 End: 03-09-1333Lvmoew flowsheetKareem R Dolce DPM FACFAS Work Phone: noms [facility]: 09-23-2024 End: 37-25-6151Jpyixi outpatient visit 15 minutesMichael Jena Sousa DO Work Phone: [facility] HealthComment on above:Hypertrophic cardiomyopathy (Multi) (Primary Dx)Start: 09-23-2024 End: 27-25-7915yolibjboysPIHRRWL Jena [facility]OUSATrumbull [facility] Start: 44-98-7567Chr-patient / Non-visitBejessica Fuentes DO-[facility] [employer] Work Phone: Start: 09-04-2024 End: 30-39-3821Vjucqg outpatient new 30 minutesKareem R Dolce DPM FACFAS Work Phone: noms NMA PODComment on above:Ingrowing nail, left great toe (Primary Dx); Abscess of great toenail of left foot; Abscess of great toenail of right foot; Ingrowing nail, right great toe; Tinea unguiumStart: 09-04-2024 End: 29-53-5734cfscyrxnkxHARNJS R DOLCENot AvailableStart: 09-04-2024 End: 39-02-5104Vhbvct flowsheetKareem R Dolce DPM FACFAS Work Phone: noms ASC PODStart: 09-04-2024 End: 31-36-2189Qiwehu flowsheetKareem R Dolce DPM FACFAS Work Phone: noms ASC PODStart: 08-26-2024 End: 32-04-6169Wlzqen outpatient visit 25 [facility] Work Phone: uh [facility] CenterComment on above:Paroxysmal atrial fibrillation (Multi); Cardiomyopathy, hypertrophic (Multi); High risk medication use; BMI 35.0-35.9,adult; Never smoked tobaccoStart: 08-26-2024 End: 18-14-1530zjrfxvmfbwWJDJQMUGrady Memorial Hospital AmbulatoryStart: 05-23-2024 End: 70-68-0772Jdgusehphygs care manage srvc 14 day dischargeFozia Ramos MD Work Phone: uh [facility] HospitalComment on above:Atrial fibrillation, persistent (Multi) (Primary Dx); High risk medication use; Cardiomyopathy, hypertrophic (Multi); Essential hypertension; LVH (left ventricular hypertrophy); Mixed hyperlipidemia; BMI 36.0-36.9,adult; Encounter for medication review and counseling; Encounter to discuss treatment options; Never smoked tobaccoStart: 05-23-2024 End: 20-03-2177xdyjulbnirRQEO J [facility] AmbulatoryStart: 05-13-2024 End: 97-05-3042Rtmtap Clara Bronson MANUFACTURING INDUSTRIAL ENGINEER-CREDIT RATING CHECKER Work Phone: noms SWS DERMStart: 05-13-2024 End: 89-93-4462Smlaxw Clara Bronson MANUFACTURING INDUSTRIAL ENGINEER-CREDIT RATING CHECKER Work Phone: noms [facility] DERMStart: 05-13-2024 End: 99-08-6662Aelgcy outpatient visit 15 minutesRaine Bronson APRN-CREDIT RATING CHECKER Work Phone: noms [facility] DERMComment on above:Melanocytic nevus of face, other location (Primary Dx); Melanocytic nevus of trunk; Melanocytic nevus of upper extremity, unspecified laterality; Seborrheic keratosis; Lentigines; Capillary angioma; Inflamed seborrheic keratosisStart: 05-13-2024 End: 56-79-6479hlmwyzlaebIQGWNSR A FELTERNot AvailableStart: 05-05-2024 End: 45-91-8073Olwgydgtkg and management of inpatientFozia Ramos MD Work Phone: uh [facility] 8 Cardiac Intensive Care Comment on above:Atrial fibrillation, persistent (Multi) (Primary Dx); HypothyroidismStart: 03-25-2024 End: 81-38-9542oqycrxyurzTAJPMorgan Medical Center AmbulatoryStart: 03-25-2024 End: 43-44-0640Oyjtrdtpvvlc / ancillary services managementEly [address]/HolterMercy Regional Health CenterComment on above:Atrial fibrillation, unspecified type (Multi)Start: 03-25-2024 End: 56-32-3890Klgdly consultation new/estab patient 80 Garrick Ramos MD Work Phone: uh [facility] HospitalComment on above:Atrial fibrillation, unspecified type (Multi) (Primary Dx); Cardiomyopathy, hypertrophic (Multi); Essential hypertension; Mixed hyperlipidemia; LVH (left ventricular hypertrophy); Myocardial infarction, unspecified AR type, unspecified artery (Multi); Obesity (BMI 30.0-34.9); Never smoked tobacco; Encounter for medication review and counseling; Encounter to discuss treatment options; Encounter to establish care with new doctor; Paroxysmal atrial fibrillation (Multi)Start: 03-25-2024 End: 67-61-4053nymxvuycpuNPDGBaylor Scott and [facility] AmbulatoryStart: 03-13-2024 End: 72-83-2915Jvvlja outpatient visit 40 Eloisa Lutz DO Work Phone: uh [facility] CenterComment on above:Paroxysmal atrial fibrillation (Multi); LVH (left ventricular hypertrophy); Essential hypertension; Mixed hyperlipidemia; Cardiomyopathy, hypertrophic (Multi); Obesity (BMI 30.0-34.9); Never smoked tobaccoStart: 03-13-2024 End: 99-58-3117nnskhonmniVKBTRBUGrady Memorial Hospital AmbulatoryStart: 02-25-2024 End: 91-97-1768Enqqbyrfkeji / ancillary services managementSelect Medical Specialty Hospital - Columbusey Surgeons Choice Medical CenterComment on above:Atrial fibrillation, unspecified type (Multi)Start: 02-25-2024 End: 38-73-7831pxzmszbzylUYPLXRUGrady Memorial Hospital AmbulatoryStart: 69-34-3075Wtxcqln encounter statusJulio Fuentes DO Work Phone: [facility]-Fairhilltart: 09-24-2023 End: 00-09-1571Wlpych outpatient visit 15 minutesMicallegra Sousa DO Work Phone: [facility] HealthComment on above:Hypertrophic cardiomyopathy (Multi) (Primary Dx)Start: 04-05-2023 End: 00-25-8478uamoxsxnlrHUQTCQW P ZAPAULDING COUNTY HOSPITALLUCILLEOhioHealth Marion General Hospitaltart: 04-05-2023 End: 33-41-4002Jujyhukqpo hospital visit by physicianDuncan [facility] Hospital – Duncan Echo/StressRobert Wood Johnson University Hospital MatherComment on above:Cardiomyopathy, hypertrophic (CMS/HCC); LVH (left ventricular hypertrophy)Start: 03-23-2023 End: 56-87-7297comuldybocGztvxebb Ball Other [facility] [employer]am[employer] Other Start: 03-91-6471Nzuaoemgz encounterJulio Fuentes Medical ClinicStart: 03-20-2023 End: 78-31-5846fqkqzhqoxsDGMTJ K SMITHOhioHealthtart: 03-20-2023 End: 77-61-5654Vhryiwssfl hospital visit by physician27 [address] StreetComment on above:LVH (left ventricular hypertrophy); Abnormal echocardiogramStart: 03-09-2023 End: 41-59-0357Sxywpn outpatient visit 25 minutesModestoliana Lutz DO Work Phone: uh [facility] CenterComhenry [facility] on above:LVH (left ventricular hypertrophy); Essential hypertension; Mixed hyperlipidemia; Cardiomyopathy, hypertrophic (CMS/HCC); LightheadednessStart: 02-16-2023 End: 64-91-4380ckhlvbvgahKdlkjhnc Ball Other nobothwell [facility] [employer] Other Start: 99-98-5111Hueknk outpatient visit 15 minutes Julio Robby Fuentes Medical ClinicStart: 02-14-2023 End: 97-06-7871Mymsbjwwxv hospital visit by Brianna Sahu Echo/Vasc Room 2Atmore Community HospitalComment on above:Hypertrophic cardiomyopathy (CMS/HCC) Start: 12-23-2022 End: 23-94-5993xebfrhmtyePvnhipuv CommunityFacility:[facility]-Fairhilltart: 12-23-2022 End: 50-15-8526yyoexzehiqYD Julio Fuentes Work Phone: [facility] Work Phone: Start: 12-23-2022 End: 53-43-1509Ygocvikz ReferredDO Julio Fuentes Work Phone: [facility]-Community Outreach Work Phone: Start: 11-15-2022 End: 54-86-7535egxotmjncoPsteufmm Ball Other nobothwell [facility] center [employer] Other Start: 44-84-9135Yubxquabb for general adult medical examination without abnormal findingsBejessica DuyMaritza [facility] Medical ClinicStart: 57-32-2432Jeirejtg preventive med est patient 40-64yrsBendickson Robby Fuentes Medical ClinicStart: 53-42-4199Vujtjp outpatient visit 15 minutesBejessica Urbina Ball Work Phone: 1(996) [phone]-Eazhm [place] [facility] DO Work Phone: Start: 52-62-3104Vdirh UpdateBenjamin E Ball Work Phone: [phone]-Xxpfj [place] [facility] 250 DO Work Phone: Start: 27-38-2053ifrhfysbkpTP BENJAMIN BALLFacility:H1 Start: 37-50-6121Hwuofa outpatient visit 10 minutesBenjamin E Ball Work Phone: [phone]-Tgebv [place] [facility] 250 DO Work Phone: Start: 64-34-4586Okdwdu outpatient visit 10 minutes Julio E Ball Work Phone: 1(743) [phone]-Azdnu [place] [facility] 250 DO Work Phone: Start: 78-78-3208Owmovo outpatient visit 10 minutes Julio E Ball Work Phone: [phone]-Xgoje [place] [facility] 250 DO Work Phone: Start: 14-07-1157Ifmpgc outpatient visit 15 minutes Julio E Ball Work Phone: [phone]-Pqigx [place] [facility] 250 DO Work Phone: Start: 99-24-6116Mliwlml encounter procedureBenjamin E Ball Work Phone: [phone]-Hxbab [place] [facility] 250A [place] Work Phone: Start: 17-47-1865Yuzajs outpatient visit 25 minutes Julio E Ball Work Phone: [phone]-Alixk [place] [facility] 250 DO Work Phone: Start: 42-01-1799BFMWEIuoones Sheldon DO Work Phone: [phone]-Ryces [place] [facility] 250 DO Work Phone: Start: 21-88-5074Gieldtnhm for general adult medical examination without abnormal findingsDR JULIO FUENTESLicking Memorial Hospitaltart: 12-23-2020 End: 16-91-8178cmmpqvzhsyAH JULIO FUENTESFacility:Q7Labig: 12-23-2020 End: 26-07-9252Forgssvqm for general adult medical examination without abnormal findingsDR JULIO FUENTESFacility:G6Fhusy: 01-01-2017 End: 37-06-0264YvqqmpzbjtYoni KovessaraFacility:CD:[id number] result normal Julio Fuentes Work Phone: 1(876) [phone]-Nkues [place] [facility] 250 DO Work Phone: Procedures DateProcedureProcedure DetailPerforming ClinicianStart: 17-59-6277Zpy routine ecg w/least 12 lds w/i&rWilliam S Bolivar DO Work Phone: Start: 73-54-1211Zck routine ecg w/least 12 lds w/i&r Fozia Ramos MD Work Phone: Start: 51-56-1694UXSVHEZCJEH SKIN LESIONNatalie Adarsh Janesyed MANUFACTURING INDUSTRIAL ENGINEER-CREDIT RATING CHECKER Work Phone: Start: 91-90-2095Vuj routine ecg w/least 12 lds trcg only w/o i&Israel Ramos MD Work Phone: Start: 42-03-0569Ocl routine ecg w/least 12 lds trcg only w/o i&Gali Kline MANUFACTURING INDUSTRIAL ENGINEER-CREDIT RATING CHECKER Work Phone: Start: 42-51-1125Vcexs metabolic panel calcium total Aggie Kline MANUFACTURING INDUSTRIAL ENGINEER-CREDIT RATING CHECKER Work Phone: Start: 33-25-3885ZWTBV Shena Ramos MD Work Phone: Start: 94-04-4448XMUVBGXX Cristofer Ramos MD Work Phone: Start: 80-63-1109XXI Cristofer Ramos MD Work Phone: Start: 18-61-1603Jgh routine ecg w/least 12 lds trcg only w/o i&Israel Ramos MD Work Phone: Start: 75-61-8328Efg routine ecg w/least 12 lds trcg only w/o i&Gali M Eliud MANUFACTURING INDUSTRIAL ENGINEER-CREDIT RATING CHECKER Work Phone: Start: 47-40-8390Kdfrxmzcsrxpv elective arrhythmia externalAggie Kline APRN-CREDIT RATING CHECKER Work Phone: Start: 05-07-2024 End: 72-09-1294Vtc routine ecg w/least 12 lds trcg only w/o i&Gali Kline APRN-CREDIT RATING CHECKER Work Phone: Start: 19-67-9444Mapcq metabolic panel calcium total Aggie Kline APRNHuxiu.comCREDIT RATING CHECKER Work Phone: Start: 08-74-3999Bqf routine ecg w/least 12 lds trcg only w/o i&Israel Ramos MD Work Phone: Start: 38-75-9929Nix routine ecg w/least 12 lds trcg only w/o i&Israel Ramos MD Work Phone: Start: 03-70-7269Lkjsz metabolic panel calcium total Aggie Kline APRNAdviceme Cosmetics Work Phone: Start: 45-92-2398KSXHZ Shena Ramos MD Work Phone: Start: 53-60-1002DOWKGRIY Cristofer Ramos MD Work Phone: Start: 56-95-8089Xrl routine ecg w/least 12 lds trcg only w/o i&Israel Ramos MD Work Phone: Start: 97-63-5249Avr routine ecg w/least 12 lds trcg only w/o i&Gali Kline APRN-CREDIT RATING CHECKER Work Phone: Start: 82-28-5699Uciibtfcaxlfm metabolic panelAggie Kline APRNHuxiu.comCREDIT RATING CHECKER Work Phone: Start: 99-29-1226Mdrkflilwf antibodies Ciara Reyez MD Work Phone: Start: 12-38-8449Licqzamyvxb [Units/volume] in Serum or PlasmaFozia Ramos MD Work Phone: Start: 66-89-5429Moa routine ecg w/least 12 lds w/i&r Fozia Ramos MD Work Phone: Start: 84-25-2825DOWNBLGKTIVEBZ STRESS TESTAKHIL CADET Start: 92-54-6987Tsaz tthrc r-t 2d w/wo m-mode complete rest&stMichmarian Sousa DO Work Phone: Start: 79-14-0976RT CARDIAC MORPHOLOGY AND FUNCTION W AND WO IV CONTRASTAKHIL CADETStart: 01-10-3455Udrjohg mri w/wo contrast & further seqAkhil Cadet MANUFACTURING INDUSTRIAL ENGINEER-CREDIT RATING CHECKER Work Phone: Start: 34-18-0903Sdcz tthrc r-t 2d w/wom-mode compl spec&colr dWilliam S Bolivar DO Work Phone: Start: 27-61-0586CjffprgjxfkzbfwnVmahxwgf E Ball Work Phone: Start: 21-90-4140Oymuc colonoscopyBenjamin E Ball Work Phone: Plan of Treatment DateCare ActivityDetailAuthorStart: 09-28-2025 End: 78-75-0665Fjpyaij encounter kpefxcvlf21/17/2026 2:40 PM EDT Office Visit [facility] [address] [place] [address] Ana Sousa, [address] [place], [place] [address] [facility] HealthStart: 05-19-2025 End: 92-65-0528Dppxdks encounter ppahsqzjj56/07/2026 1:00 PM EDT Office Visit [facility] [address] [facility] [address] [place] [address] Fozia Ramos MD [address] [facility] [address] [place] [address] [facility]: 05-14-2025 End: 39-96-3188Blkvnsh encounter procedureNOLA SWS DERMStart: 78-89-8596Jyhndjrl mellitus screeningDiabetes ScreeningPremier Health Upper Valley Medical CenterStwashington: 59-18-3849Rcpmcci stimulating hormone measurementNorthwest Center for Behavioral Health – WoodwardStwashington: 03-04-2025 End: 52-81-6418Hdrjzpj encounter iefawtcxq86/21/2026 8:00 AM EST Office Visit [address] [place] [address] Akhil Cadet, MANUFACTURING INDUSTRIAL ENGINEER-CREDIT RATING CHECKER [address] [facility] [address] [place] [address] [facility] CenterStart: 08-92-1703Jrbbduwuf vaccinationTHE [facility]IC [facility] HealthcareStart: 09-25-2024 End: 13-50-8353Lgaqkgn encounter procedureNOLA NMA PODComment on above:Arrived Start: 09-23-2024 End: 98-40-6361Xtjtmsa encounter znmpwtooq11/12/2025 2:40 PM EDT Office Visit [facility] [address] [facility] [address] [place] [address] [place] [address] [place] [address] [facility]Start: 09-04-2024 End: 58-17-1167Fekpqpi encounter vztfjygch03/24/2025 3:10 PM EDT Office Visit [facility] POD [address] [place] [id number] Gilberto Fisher, DPM FACFAS [address] [facility] [place] [address] [facility] NMA PODComment on above:ArrivedStart: 06-25-2024 End: 67-45-9892Quzwnvv encounter anxyfudak47/14/2025 10:00 AM EDT Office Visit [address] [place] [address] Nomi Lutz, [address] [facility], [address] [place] [address] [facility]: [facility] End: 26-53-6883Oehyqkj encounter qyvdbkfvv40/11/2025 12:00 PM EDT Office Visit [facility] [address] [facility] [address] [place] [address] Fozia Ramos MD [address] [facility] Office dg, [address] [place] [address] [facility] Start: 05-13-2024 End: 12-68-6551Mzsplsu encounter /01/2025 1:40 PM EDT Office Visit [facility] [address] [place] [address] Raine Bronson, MANUFACTURING INDUSTRIAL ENGINEER-CREDIT RATING CHECKER [address] [place] [address] ArrivedNOMS SWS DERMComment on above: ArrivedStart: 80-50-6371Vnpinhwqoq and management of ewkaudted28/10/2025 Hospital Encounter [facility] 8 Cardiac Intensive Care [address] [place] [address] Fozia Ramos MD [address] [facility], [address] [place] [address] [facility] 8 Cardiac Intensive CareStart: 03-25-2024 End: 18-92-6297Nquuecxepcqnn ExternalCardioversion External Cardiac Services Routine Atrial fibrillation, unspecified type (Multi) Expected: 03/25/2024 (Approximate), Expires: 03/25/2026[facility] Work Phone: Comment on above:Expected: 03/25/2024 (Approximate), Expires: 03/25/2026Start: 03-25-2024 End: 86-41-9839XSV signal [facility] Service Area Work Phone: Comment on above:Expected: 03/25/2024 (Approximate), Expires: 03/25/2025Start: 03-25-2024 End: 51-12-2354Swmdhlp encounter xvyhbpiuj62/11/2025 7:15 AM EST Office Visit [facility] [address] [facility] [address] [place] [address] Fozia Ramos MD [address] [facility] Medical Office Bldg, [address] [place] [address] [facility] 03-13-2024 End: 05-24-6144Gqihieh encounter dmympmypt98/30/2025 9:00 AM EST Office Visit [place] [address] [facility] [address] [place] [address] Nomi Lutz DO [address] [facility], [address] [place] [address] [facility]: 29-15-0383Cyoite Adult Physical Yearly Adult PhysicalUnSelect Medical Specialty [facility]: 91-10-8337PLDZF-19 Vaccine ( season)COVID-19 Vaccine ( season)[facility]: 87-24-0906Mtttgtdzg vaccinationInfluenza Vaccine (#1)[facility]: 09-28-2023 End: 48-37-0335Qwxwxxn encounter rqohygmpi64/16/2024 1:00 PM EDT Office Visit [facility] 7[address] [facility] [address] [place] [address] Akhil Cadet, MYA-HENRIK [address] [facility], [address] [place] [address] [facility]: 09-24-2023 End: 25-36-9794Wtuswqw encounter dgszbbekz78/12/2024 3:40 PM EDT Office Visit [address] [place] [address] [place] [address] [place] [address] [facility]: [facility] End: 58-67-2852Jllgtkv encounter /29/2024 8:00 AM EDT Office Visit [address] [place] [address] Akhil Cadet, MANUFACTURING INDUSTRIAL ENGINEER-CREDIT RATING CHECKER [address] [facility], [address] [place], [place] [phone] [facility]: 03-26-2023 End: 14-20-1256Mcqqwqy encounter lqphyjuni70/12/2024 3:00 PM EST Consult [address] [place] [address] [place] [address] [place] [address] [facility]: 03-20-2023 End: 70-80-9669Eavwjcm encounter tehffxkjg39/06/2024 8:15 AM EST Appointment [facility] [address] [place] [address] [facility], Elizabethtontart: 03-13-2023 End: 25-33-0946Zvniuygywyrm / ancillary services owbapqdtlc43/30/2024 8:00 AM EST Ancillary Procedure [address] [address] [facility]: 03-09[facility]2023 End: 99-60-4716Ddpeqq monitor studyHolter Or Event Restaurant Service Manager Cardiac Services Routine LVH (left ventricular hypertrophy) Cardiomyopathy, hypertrophic (CMS/HCC) Lightheadedness Expected: 03/09/2023 (Approximate), Expires: 03/09/19 [facility] Service Area Work Phone: Comment on above:Expected: 03/09/2023 (Approximate), Expires: 03/09/2024Start: 03-09-2023 End: 69-27-6435Ebgrlrt encounter dswatbqjw50/26/2024 1:50 PM EST Office Visit [facility] [address] [place] [address] Nomi Lutz, DO [address], [address] [place] [address] [facility] CenterStart: 82-64-8218EOU, Provider: Nomi Lutz, Status: Pen, Time: 9:50 AMFUV, Provider: Nomi Lutz, Status: Pen, Time: 9:50 AMMP-[facility]ky 250 DO Work Phone: Start: 39-54-1687ZXNQK-19 Vaccine ( season) COVID-19 Vaccine ( season)[facility]: 91-43-1466CCF High Risk: (Elderly (60+) or Population) (1 - Risk 60-74 years 1-dose series)RSV High Risk: (Elderly (60+) or Population) (1 - Risk 60-74 years 1-dose series)[facility]: 54-42-4705XNJ patients and/or patients aged 60+ years (1 - 1-dose 60+ series)RSV patients and/or patients aged 60+ years (1 - 1-dose 60+ series)[facility]: 23-39-1119ZQYU, Provider: JASON HHVI ULTRASOUND ,[id number], Status: Pen, Time: 9:45 AMECHO, Provider: JASON HHVI ULTRASOUND ,[id number], Status: Pen, Time: 9:[address] DO Work Phone: Start: 84-14-8007XFT, Provider: Nomi Lutz, Status: Pen, Time: 8:50 AMFUV, Provider: Nomi Lutz, Status: Pen, Time: 8:50 AMMP-[facility]-[place] 250 DO Work Phone: Start: 99-58-9645ELD, Provider: Nomi Lutz, Status: Pen, Time: 9:30 AMFUV, Provider: Nomi Lutz, Status: Pen, Time: 9:30 AMMP-[facility]-[place] 250 DO Work Phone: Start: 57-27-1905BBO, Provider: Akhil Jimenez, Status: Pen, Time: 3:00 PMFUV, Provider: Akhil Jimenez, Status: Pen, Time: 3:00 PMMP-[facility]-[place] 250 DO Work Phone: Start: 82-17-2818WBQ, Provider: Akhil Jimenez, Status: Pen, Time: 3:30 PMFUV, Provider: Akhil Jimenez, Status: Pen, Time: 3:30 PMAl[facility]-[place] 250 DO Work Phone: Start: 37-12-5750MNN, Provider: Akhil Jimenez, Status: Pen, Time: 3:30 PMFUV, Provider: Akhil Jimenez, Status: Pen, Time: 3:30 PMAlomere Health Hospital-[place] 250 DO Work Phone: Start: 30-54-9692TNGXD-19 Vaccine (4 - Moderna series) COVID-19 Vaccine (4 - Moderna series)[facility] Center[facility]: 94-88-3873KPA, Provider: Akhil Jimenez, Status: Pen, Time: 3:30 PMFUV, Provider: Akhil Jimenez, Status: Pen, Time: 3:30 PMAlomere Health [facility]- [place] 250 DO Work Phone: Start: 80-57-2873NIDX, Provider: JASON HHVI ULTRASOUND 01,[id number], Status: Pen, Time: 2:30 PMECHO, Provider: JASON HHVI ULTRASOUND 01,[id number], Status: Pen, Time: 2:30 PMMP-[facility] 250 DO Work Phone: Start: 43-67-8608ZOJ, Provider: Nomi Lutz, Status: Pen, Time: 9:40 AMFUV, Provider: Nomi Lutz, Status: Pen, Time: 9:40 AM-[facility] SciencesJason 250 DO Work Phone: Start: 93-18-2473Bztmzf Vaccines (2 of 2)Zoster Vaccines (2 of 2)[facility]: 01-44-7951PGI Vaccines (1 of 1 - Standard series)MMR Vaccines (1 of 1 - Standard series)[facility]: 04-28-8706Bxzznees specific antigen measurementPSA Prostate Cancer ScreeningUnSelect Medical Specialty Hospital [facility]: 1982 DTaP/Tdap/Td Vaccines (1 - Tdap)DTaP/Tdap/Td Vaccines (1 - Tdap)[facility]: 40-90-5441Fgabqqwgzpqt vaccinationPneumococcal Vaccine (1 of 2 - PCV)[facility]: 47-41-0523Dmbrvycq mellitus screeningDiabetes ScreeningUnSelect [facility]: 73-69-4343Armmhrdrv C screeningHepatitis C ScreeningUnSelect Medical Specialty [facility]: 93-32-6041Pdfbtrebimeg Vaccine: Pediatrics (0 to 5 Years) and At-Risk Patients (6 to 64 Years) (1 - PCV)Pneumococcal Vaccine: Pediatrics (0 to 5 Years) and At-Risk Patients (6 to 64 Years) (1 - PCV)[facility]: 74-94-1426Tkicwxijqlur Vaccine: Pediatrics (0 to 5 Years) and At-Risk Patients (6 to 64 Years) (1 of 2 - PCV)Pneumococcal Vaccine: Pediatrics (0 to 5 Years) and At-Risk Patients (6 to 64 Years) (1 of 2 - PCV)[facility]: 75-03-4352KWN Vaccines (1 of 1 - Standard series) MMR Vaccines (1 of 1 - Standard series)[facility]: 46-50-0206HAJ screeningHIV ScreeningUnSelect Medical Specialty [facility]: 34-83-0235Cfefg panelLipid PanelDunlap Memorial Hospital: 63-70-4630Ofqdcsrqp for malignant neoplasm of colonDunlap Memorial Hospital: 85-56-7458Xaagfn Adult PhysicalYearly Adult PhysicalUnTriHealth End: 90-87-5201Qqxwp metabolic 2000 panel - Serum or PlasmaBasic Metabolic Panel Lab Routine Atrial fibrillation, unspecified type (Multi) 1 Occurrences starti ng 03/25/2024 until 03/25/2025[facility] Work Phone: Comment on above:1 Occurrences starting 03/25/2024 until 03/25/2025 End: 80-52-2150OSF panel - Blood by Automated countCBC Lab Routine Atrial fibrillation, unspecified type (Multi) 1 Occurrences starting 03/25/2024 until 03/25/2025[facility] Work Phone: Comment on above:1 Occurrences starting 03/25/2024 until 03/25/2025ECG 12 LeadECG 12 Lead ECG Routine Atrial fibrillation, unspecified type (Multi) 02/25/2024 1:48 PM [facility] Service Area Work Phone: ecg 12 LeadECG 12 Lead ECG Routine 05/05/2024 11:22 PM [facility] Work Phone: ECI 12 leadECG 12 lead ECG Routine 05/07/2024 6:45 AM [facility] Work Phone: ECM 12 leadECG 12 lead ECG Routine 05/06/2024 10:41 PM [facility] Work Phone: ECZ 12 leadECG 12 lead ECG Routine 05/07/2024 1:20 PM [facility] Work Phone: ecg 12 leadECG 12 lead ECG Routine 05/07/2024 10:58 PM [facility] Work Phone: ecg 12 leadECG 12 lead ECG Routine 05/08/2024 11:12 AM [facility] Work Phone: Electrocardiogram 12 [facility] Work Phone: Comment on above:As needed until discontinued starting 05/05/2024Electrocardiogram 12 leadElectrocardiogram 12 lead ECG Routine 05/07/2024 6:45 AM [facility] Work Phone: Electrocardiogram 12 leadElectrocardiogram 12 lead ECG Routine 05/07/2024 6:32 AM [facility] Work Phone: Electrocardiogram 12 leadElectrocardiogram 12 lead ECG Routine 05/08/2024 7:14 AM [facility] Work Phone: End: 53-79-4578Kgkxrnpumzt time (PT)Protime-INR Lab Routine Atrial fibrillation, unspecified type (Multi) 1 Occurrences starting 03/25/2024 until 03/25/2025 [facility] Work Phone: Comment on above:1 Occurrences starting 03/25/2024 until 03/25/2025 Immunizations Immunization DateImmunizationNotesCare KzqxijcdJfjgmtmg98-59-0507kvkmjypyf, injectable, quadrivalent, preservative freeBendickson Fuentes Other [employer] Other [id number] virus vaccine, unspecified formulationMichael Merry DO Work Phone: [facility] Work Phone: [phone]gbamst virus vaccine, split virus (incl. purified surface antigen)Julio Fuentes Other nobothwell [facility] [employer] Other [phone], injectable, Madin Dee Canine Kidney, preservative free, quadrivalentBenjamin E Gina Work Phone: [phone]-TsandAlomere Health Hospital-[place] 250 DO Work Phone: [phone]qsjnp virus vaccine, unspecified formulationNatalie Felter MANUFACTURING INDUSTRIAL ENGINEER-CREDIT RATING CHECKER Work Phone: [facility]12-18-2021Moderna COVID-19 Vaccine 100 MCG/0.5ML Intramuscular SuspensionBenjamin E Ball Work Phone: [phone]-WuhqaAustin [facility] [address] [place] Work Phone: [phone]iezka virus vaccine, split virus (incl. purified surface antigen)Julio Fuentes Other [employer] Other 11441909-08-5600rnedvxtbs virus vaccine, unspecified formulationBenjamin Ball DO Work Phone: [facility]11-19-2021influenza, injectable, quadrivalent, preservative freeBenjamin E Ball Work Phone: [phone]-DgsnmJe[place] [address]A [place] Work Phone: [phone]erm COVID-19 Vaccine 100 MCG/0.5ML Intramuscular SuspensionBenjamin E Ball Work Phone: [phone]-GfawjAustin Hospital And Clinic [address] [place] Work Phone: [phone]gqn COVID-19 Vaccine 100 MCG/0.5ML Intramuscular SuspensionBenjamin E Ball Work Phone: [phone]-LhwwxAustin [facility] [address] [place] Work Phone: [phone] 380-976311002170-31-1963lhiwgu vaccine recombinantBenjamin E Ball Work Phone: [phone]-YxmfxAustin [facility] [address] [place] Work Phone: [phone] vaccine, liveBenjamin Ball Other Mashworkbothwell [facility] [employer] Other 10-174623-18-7973auggmfjjo virus vaccine, split virus (incl. purified surface antigen)Julio Fuentes Other [facility] [employer] Other 10568179-55-6695xphkdcgjm virus vaccine, unspecified formulationBenjamin Ball DO Work Phone: [facility]10-29-2020influenza, injectable, quadrivalent, contains preservativeBenjamin E Ball Work Phone: [phone]-TodmfAustin [facility] [address] [place] Work Phone: [phone] 587-326101485567-24-9910hqqbhvyxy virus vaccine, split virus (incl. purified surface antigen)Julio Fuentes Other noSelect [facility]ty [facility] [employer] Other [id number]m virus vaccine, unspecified formulationBenjamin Ball DO Work Phone: [facility]01-08-2020influenza, injectable, quadrivalent, contains preservativeBenjamin E Ball Work Phone: [phone]-XioaqAustin [facility] [address] [place] Work Phone: [phone] 522-303401574528-13-9530brstkfbpm virus vaccine, unspecified formulationBenjamin E Ball Work Phone: [phone]-LclykAustin Hospital And Clinic 250 DO Work Phone: Payers DatePayer CategoryPayerPolicy [id number] Health [id number] Care (Private)[facility] [id number] Health [id number].3.040829.19646-08-7501Tdrylob Health [id number]-[id number]-47xq-[id number] [id number] 2.840.1.380131.3.57[id number] 2.0.1.270333.3.57[id number] 2.840.1.061754.3.57[id number] 2.0.1.840898.3.57[id number] 2.0.1.508229.3.57[id number] 2.0.1.678164.3.57[id number] 2.0.1.791592.3.579.2.63[id number] 2.0.1.882670.3.57[id number] 2.0.1.341837.3.57[id number] 2.840.1.653824.3.57[id number] 2.840.1.566147.3.57[id number] 2.840.1.104705.3.57[id number] 2.16.840.1.393984.3.57[id number] 2.16.840.1.791362.3.57[id number] 2.16.840.1.340298.3.57[id number] 2.16.840.1.150086.3.579.2.993784-61-9175Wwaz-tqq53795600013-96-3255Dhofslq [id number] 2.16.840.1.546500.06HbtogkwT00961455-17 4g81oej4-1710-85i0-d875-0g6567fm34bn Social History DateTypeDetailFacilityStart: 02-09-2023 End: 90-83-2503Ippjhlmz useCaffeine useUnTriHealthComment on above:1 SODA DAILY;1 WEEKLY;once weekly;Start: 02-09-2023 End: 79-92-8560Fgk [facility] At [facility]: 08-[facility]2018 End: 28-77-0123Vybabwn smoking status NHISNever smoked tobacco (finding) [facility]: 01-94-3387Gim Assigned At [facility]art: 02-09-2023 End: 32-32-8284Celbeso intakeCurrent drinker of alcohol (finding)[facility] Work Phone: Start: 39-66-1306Mht Assigned At BirthNot on file [facility] Work Phone: Start: 02-04-2023 End: 34-81-6238Kugmfply to SARS-CoV-2 (event)Not sureUnSelect Medical Specialty Hospital [facility]: 11-20-2022 End: 09-48-7073Thfrmxl use and exposureSmokeless tobacco non-userUnTriHealth Work Phone: Has the electric, gas, oil, or water company threatened to shut off services in your home in past 12MoNoUnTriHealthHow often to you have a drink containing alcohol?NeverPremier Health Upper [facility] Medical Center Work Phone: Start: 87-87-4387Fhj many standard drinks containing alcohol do you have on a typical day?Patient does not drinkPremier Health Upper Valley Medical Center Work Phone: (I/We) worried whether (my/our) food would run out before (I/we) got money to buy more.Never trueUnTriHealth Work Phone: SexMale (finding)[facility] Clinical Notes 11-15-2022 to 12-05-2024 Note Date & JdhiIvpnDlvoeoqh31-36-4474 Evaluation note* Diagnosis Onset Date Resolution Status Admit Date Chronic anticoagulation acuteOctober 2024 3:42pmMetatarsalgia of left footnoneactiveOctober 2024 3:42pm [facility] Work Phone: [phone]) 821-327808-14-2025 History of Present illness Narrative* Gilberto Fisher DPM FACFAS - 09/25/2024 3:30 PM EDT Images from the original note were not included. Patient: Cristian Chambers : 1960 PCP: Julio Fuentes DO SUBJECTIVE This is a 64 y.o. male that presents today for follow up a nail avulsion /incision and drainage of abscess hallux b/l . Patient is doing well they deny fever chills nausea vomiting. They deny any pain they have been compliant with her postoperative care they have been soaking the nail as directed and applying topical antibiotics. Allergies: No Known Allergies Past Medical History: Active Ambulatory Problems Diagnosis Date Noted Glaucoma suspect of both eyes 03/16/2023 Age-related nuclear cataract of both eyes 03/16/2023 Dry eyes 03/16/2023 Resolved Ambulatory Problems Diagnosis Date Noted No Resolved Ambulatory Problems Past Medical History: Diagnosis Date HTN (hypertension) Medications: Current Outpatient Medications: amLODIPine (Norvasc) 5 MG tablet, , Disp: , Rfl: ciclopirox (Penlac) 8 % solution, Apply topically at bedtime Applied daily to affected nails. Remove once a week with alcohol swab, Disp: 10 mL, Rfl: 1 metoprolol succinate XL (Toprol-XL) 50 MG 24 hr tablet, Take 50 mg by mouth in the morning and 50 mg before bedtime., Disp: , Rfl: pravastatin (Pravachol) 40 MG tablet, Take 40 mg by mouth at bedtime., Disp: , Rfl: ROS: Constitutional: Denies fever, chills, nausea, vomiting GI: Denies abdominal pain, cramping, loose stool, gastric ulcers Musculoskeletal: Denies low back pain, knee pain, systemic arthritis Neurologic: Denies burning, tingling, transient paralysis OBJECTIVE Physical examination: DERM: Positive hair growth to b/l feet with good skin turgor noted. Nail avulsion site is healing well no signs of infection no drainage no malodor. Mild fibrotic tissue noted within the nail fold. No ascending cellulitis or lymphangitis noted. VASC: Palpable pedal pulsed b/l with warm to cool tibia to toes b/l NEURO: Gross sensation intact digits 1-10 and b/l feeT MUSCULOSKELETAL: Muscle strength is +5 over 5 all intrinsic and extrinsic muscles tested ASSESSMENT 1. Abscess of great toenail of left foot 2. Abscess of great toenail of right foot PLAN Patient may discontinue soaking the nail. They may discontinue topical antibiotics follow up p.r.n. NUSRAT Morrow documented in this encounterThree Rivers HealthcareDglbqrfetg89-99-9534 History of Present illness Narrative* Ana Sousa DO - 09/23/2024 2:40 PM EDT Images from the original note were not included. [facility] Primary Care Physician: Julio Fuentes DO Referring Provider/Supervisor Chassis Assembly: [place] (/[facility]) Date of Visit: 09/23/2024 2:40 PM EDT Location of visit: [address] HPI: Mr. Chambers is a 64M with a PMHx sig for HTN, apical hypertrophic cardiomyopathy, persistent AF on DOAC and AAD therapies, and dyslipidemia who returns to the Advanced Heart Failure clinic for ongoing evaluation and management. Interval Hx: He was [facility] [place] [facility] [place] Tikosyn loading in April. He currently denies chest pain, palpitations, shortness of breath, dyspnea on exertion, orthopnea, PND. Trace edema noted in BLE. He denies headaches, dizziness or recent falls. Hospitalizations: 05/05-05/08/24 Tikosyn initiation PMHx: HTN, apical hypertrophic cardiomyopathy, persistent AF on DOAC and AAD therapies, dyslipidemia SocHx: Lives in [place] Denies tobacco/rare etOH/denies illicits FamHx: No HCM Mother with AF and aortic aneurysm Current Outpatient Medications Medication Sig Dispense Refill amLODIPine (Norvasc) 10 mg tablet Take 1 tablet (10 mg) by mouth once daily. 90 tablet 3 apixaban (Eliquis) 5 mg tablet Take 1 tablet (5 mg) by mouth 2 times a day for 21 days. 42 tablet 0 dofetilide (Tikosyn) 250 mcg capsule Take 1 capsule (250 mcg) by mouth 2 times a day. 180 capsule 3 levothyroxine (Synthroid, Levoxyl) 25 mcg tablet Take 1 tablet (25 mcg) by mouth early in the morning.. Take on an empty stomach at the same time each day, either 30 to 60 minutes prior to breakfast 30 tablet 1 metoprolol succinate XL (Toprol-XL) 50 mg 24 hr tablet Take 1 tablet (50 mg) by mouth once daily. Do not crush or chew. pravastatin (Pravachol) 40 mg tablet Take 1 tablet (40 mg) by mouth once daily at bedtime. 90 tablet 3 No current facility-administered medications for this visit. No Known Allergies Visit Vitals BP 145/86 (BP Location: Right arm, Patient Position: Sitting, BP Cuff Size: Large adult) Pulse 58 Ht 1.829 m (6') Wt 121 kg (266 lb) SpO2 96% BMI 36.08 kg/m Smoking Status Never BSA 2.48 m Physical Exam: On exam Mr. Chambers appears his stated age, is alert and oriented x3, and in no acute distress. His sclera are anicteric and his oropharynx has moist mucous membranes. His neck is supple and without thyromegaly. The JVP is ~5 cm of water above the right atrium. His cardiac exam has regular rhythm, normal S1, S2. No S3/4. There are no provocable murmurs. His lungs are clear to auscultation bilaterally and there is no dullness to percussion. His abdomen is soft, nontender with normoactive bowel sounds. There is no HJR. The extremities are warm and without edema. The skin is dry. There is no rash present. The distal pulses are 2+ in all four extremities. His mood and affect are appropriate for todays encounter. Cardiac Labs/Diagnostics: Exercise stress echo (04/05/23): 1. The resting ejection fraction was estimated at 60 to 65% with a peak exercise ejection fraction estimated at 70 to 75%. 2. Adequate level of stress achieved. 3. No clinical or echocardiographic evidence for ischemia at a maximal workload. 4. No significant intracavitary gradient with no change with exercise. 5. The blunted heart rate diminshes the sensitivity of this test. 6. This exercise test is indeterminate because of an abnormal baseline ECG. ECG (03/26/23): Sinus bradycardia (HR 54), LVH with repol vs apical HCM pattern cMRI (03/20/23): 1. Left ventricle is normal in size (LVEDVi = 83 mL/m2) with hyperdynamic systolic function (LVEF =76%). No focal wall motion abnormalities. 2. Asymmetric left ventricular hypertrophy involving the mid septum and apical segments with wall thickness measuring up to 2.1 cm. In addition, there are patchy areas of mid myocardial delayed enhancement involving these segments with approximate scar size of 33%. Overall findings are most suggestive of a hypertrophic cardiomyopathy. No evidence of prior infarction. 3. No evidence of LVOT gradient or systolic anterior motion of the mitral valve. 4. Increased T1 mapping times within the mid to apical segments, consistent with diffuse interstitial fibrosis. 5. Moderate mitral regurgitation (regurgitant fraction = 32%) and mild aortic regurgitation (regurgitant fraction = 9%). 6. Dilated left atrium. 7. Mildly dilated ascending aorta measuring up to 4.0 cm. Recommend continued follow-up as per clinical guidelines. 8. Mildly dilated main pulmonary artery which can be seen in the setting of pulmonary hypertension. 14D Holter 03/13/23) All tracings demonstrated normal sinus rhythm with a heart rate that ranged between 41 bpm and 66 bpm. Isolated PACs and isolated PVCs were noted. There were 2 events of atrial tachycardia at a rate of 100 bpm 1 event was for 3 beats and the other one was for 5 beats , none were symptomatic Echo (02/14/23): 1. Left ventricular systolic function is hyperdynamic with a 75-80% estimated ejection fraction. 2. Spectral Doppler shows an impaired relaxation pattern of left ventricular diastolic filling. 3. There is evidence of asymmetrical septal hypertrophy. Following Optison infusion apical imaging appears a classic for apical hypertrophic cardiomyopathy. Mild 16 mmHg mid LV dynamic gradient was seen. 4. Trace to mild mitral valve regurgitation. 5. Slightly elevated RVSP. 6. Trace to mild tricuspid regurgitation. 7. When compared to previous study. The use of Optison seems to define LV architecture better and appears to be highly suggestive of apical hypertrophic cardiomyopathy. Consider cardiac MRI to confirm the diagnosis. Cardiac cath (08/06/18): Normal coronaries Apical HCM without LVOT obstruction Impression/Plan: Mr. Chambers is a 64M with a PMHx sig for HTN, apical hypertrophic cardiomyopathy, persistent AF on DOAC and AAD therapies, and dyslipidemia who returns to the Advanced Heart Failure clinic for ongoing evaluation and management. 1) Apical hypertrophic cardiomyopathy Prior imaging noted to have apical HCM without a significant LVOT gradient or APOLLO. Currently on beta diogenes with a low resting HR. Metoprolol recently decreased in light of ongoing bradycardia whileon tikosyn. No history of syncope or family history of SCD. Case discussed at HCM Board. Scar burden on cMRI felt to be less than previously reported. No need for an ICD at the current time based on all of the above. Recommended to continue his current beta diogenes and monitor. -c/w metoprolol succinate 50 mg daily -will need intermittent surveillance testing F/U: 1 year at /[facility] Jakob, Thank you for referring Mr. Chambers to the Advanced Heart Failure Clinic. Please let me know if you have any questions. Ana Sousa DO Section of Advanced Heart Failure and Cardiac Transplantation Division of Cardiovascular Medicine [facility] [place] [facility] documented in this encounterUnTriHealth Work Phone: [phone] Instructions* Patient Instructions* Ana Sousa DO - 09/23/2024 2:40 PM EDT It was a pleasure seeing you today. Please contact myself or my team with any questions. To reach Dr. Sousa' office please call [phone] (Alicia). To schedule an appointment call [phone] If you have any questions or need cardiac medication refills, please call the Heart Failure office at [phone], option [phone]. You may also contact the Heart Failure Nursing team via email at (Please include your name and date of ). 1) Continue your current medications 2) Follow up in 1 year at /[facility] documented in this encounterUnTriHealth Work Phone: [phone] History of Present illness Narrative* Gilberto Fisher DPM FACFAS - 09/04/2024 3:10 PM EDT Images from the original note were not included. Patient: Cristian Chambers : 1960 PCP: Julio Fuentes DO SUBJECTIVE This is a 64 y.o. male presents today with a chief complaint of a painful ingrown toenail with associated soft tissue abscess right and left foot. The state the pain has been present for several weeks and has progressively worsened. They have attempted trimming the nail back to no avail. They have n oticed erythema and drainage coming from the affected border of the nail. They have attempted soaking the nail and topical antibiotics to no avail. The patient rates the pain a scale from 1-10 as a 8 with 10 being the worst pain of their lives. Allergies: No Known Allergies Past Medical History: Active Ambulatory Problems Diagnosis Date Noted Glaucoma suspect of both eyes 03/16/2023 Age-related nuclear cataract of both eyes 03/16/2023 Dry eyes 03/16/2023 Resolved Ambulatory Problems Diagnosis Date Noted No Resolved Ambulatory Problems Past Medical History: Diagnosis Date HTN (hypertension) Medications: Current Outpatient Medications: amLODIPine (Norvasc) 5 MG tablet, , Disp: , Rfl: metoprolol succinate XL (Toprol-XL) 50 MG 24 hr tablet, Take 50 mg by mouth in the morning and 50 mg before bedtime., Disp: , Rfl: pravastatin (Pravachol) 40 MG tablet, Take 40 mg by mouth at bedtime., Disp: , Rfl: Review of systems: Constitutional: Denies fever, chills, nausea, vomiting GI: Denies abdominal pain, cramping, loose stool, gastric ulcers Musculoskeletal: Denies low back pain, knee pain, systemic arthritis Neurologic: Denies burning, tingling, transient paralysis OBJECTIVE Physical Examination: DERM: Positive hair growth to b/l feet with good skin turgor noted. Negative openings in skin. The right and left great toe is incurvated and painful at the nail border. There is significant erythemaand drainage with abscess formation noted. Pain on direct palpation of the incurvated border. Localized erythema circumferentially around the digit. There is no ascending cellulitis or lymphangitis noted. Nail is thick subungual debris VASC: DP /PT were palpable bilateral. Capillary refill time < 3 seconds Digits 1-5 bilateral NEURO: [place] 5.07 monofilament was intact B/L. Vibratory sensation was intact B/L Musculoskeletal: Muscle strength was +5 over 5 all intrinsic and extrinsic muscles tested. Radiographs: AP/MO/LAT: ASSESSMENT 1. Abscess of great toenail of left foot 2. Abscess of great toenail of right foot 3. Ingrowing nail, left great toe 4. Ingrowing nail, right great toe 5. Tinea unguium PLAN Recommended incision and drainage of the infection of the digit. Consent forms were signed for the procedure today. The digit was anesthetized with 3 cc of 2% lidocaine plain. The digit was prepped and draped in the usual sterile manner. The offending nail border was freed proximally and at the nail bed. The nail was removed in toto hallux b/l The abscess was drained and copiously lavaged with normal sterile saline. Dressings consisted of Silvadene 4x4s and Coban. The patient was instructed to change the dressing daily. NUSRAT Morrow documented in this encounterThree Rivers [id number] History of Present illness Narrative* Nomi Combs Bolivar, DO - 08/26/2024 3:00 PM EDT Chief Complaint Patient presents with Follow-up 4 month Follow up for Hypertension Subjective Cristian Chambers is a 64 y.o. male 64-year-old gentleman returns for routine cardiovascular follow-up status post cardioversion and dofetilide loading with Dr. Ramos [place] [facility] He is doing well and asymptomatic. He denies any shortness ofbreath, significant fatigue, recurrent atrial fibrillation or heart failure. Today's ECG demonstrates sinus bradycardia at 50 with a QT corrected interval 461 ms with anterolateral and high lateral T wave inversions. He remains on amlodipine 10 mg apixaban 5 mg twice daily dofetilide 250 mcg twice daily, metoprolol succinate 50 mg twice daily and pravastatin 40 mg daily. He has follow-up with Dr. Sousa and Dr. Ramos shortly. I have reviewed his discharge summary andadmission notes [place] [facility] [place] Ramos. Recommendations, will titrate down on the metoprolol succinate 50 once daily, follow-up with the appropriate HCOM team and EP team, I will see him again in 6-month Review of Systems All other systems reviewed and are negative. Vitals: 08/26/24 1533 BP: 118/80 BP Location: Left arm Patient Position: Sitting Pulse: 50 Weight: 119 kg (262 lb) Height: 1.829 m (6') Objective Physical Exam Constitutional: Appearance: Normal appearance. HENT: Nose: Nose normal. Neck: Vascular: No carotid bruit. Cardiovascular: Rate and Rhythm: Normal rate. Pulses: Normal pulses. Heart sounds: Normal heart sounds. Pulmonary: Effort: Pulmonary effort is normal. Abdominal: General: Bowel sounds are normal. Palpations: Abdomen is soft. Musculoskeletal: General: Normal range of motion. Cervical back: Normal range of motion. Right lower leg: No edema. Left lower leg: No edema. Skin: General: Skin is warm and dry. Neurological: General: No focal deficit present. Mental Status: He is alert. Psychiatric: Mood and Affect: Mood normal. Behavior: Behavior normal. Thought Content: Thought content normal. Judgment: Judgment normal. Allergies Patient has no known allergies. Current Medications Current Outpatient Medications Medication Instructions amLODIPine (NORVASC) 10 mg, oral, Daily apixaban (ELIQUIS) 5 mg, oral, 2 times daily dofetilide (TIKOSYN) 250 mcg, oral, 2 times daily levothyroxine (SYNTHROID, LEVOXYL) 25 mcg, oral, Daily, Take on an empty stomach at the same time each day, either 30 to 60 minutes prior to breakfast pravastatin (PRAVACHOL) 40 mg, oral, Nightly Assessment/Plan 1. Paroxysmal atrial fibrillation (Multi) Follow Up In Cardiology 2. Cardiomyopathy, hypertrophic (Multi) 3. High risk medication use 4. BMI 35.0-35.9,adult 5. Never smoked tobacco Scribe Attestation By signing my name below, INora LPN, Scribe attest that this documentation has been prepared under the direction and in the presence of Sammi Lutz DO. Provider Attestation - Scribe documentation All medical record entries made by the Scribe were at my direction and personally dictated by me. Ihave reviewed the chart and agree that the record accurately reflects my personal performance of the history, physical exam, discussion and plan. documented in this [facility] Work Phone: [phone]) 239-395607-15-2025 Instructions* Patient Instructions* Nora Becerra LPN - 08/26/2024 3:00 PM EDT Please bring all medicines, vitamins, and herbal supplements with you when you come to the office. Prescriptions will not be filled unless you are compliant with your follow up appointments or have a follow up appointment scheduled as per instruction of your physician. Refills should be requested at the time of your visit. BMI was above normal measurement. Current weight: 119 kg (262 lb) Weight change since last visit (-) denotes wt loss -8 lbs Weight loss needed to achieve BMI 25: 78.1 Lbs Weight loss needed to achieve BMI 30: 41.3 Lbs Provided instructions on dietary changes Provided instructions on exercise. DECREASE Metoprolol to one tablet daily * Attachments The following attachments cannot be sent through Care Everywhere. * Heart Healthy Diet ([place]an) documented in this [facility] Work Phone: [phone] History of Present illness Narrative* Fozia Ramos MD - 05/23/2024 12:00 PM EDT Patient ID: Cristian Chambers is a 63 y.o. male who presents for Follow-up (Pt is here today following up after discharge 05/07, post cardioversion ). History of Present Illness Patient is accompanied by his . The patient, with a history of atrial fibrillation, presents for a follow-up visit after a recent hospitalization. He underwent a drug load with dofetilide (Tikosyn) and was started on Eliquis. He reports no side effects or issues with the new medications. He notes a difference in how he feels now that he is not in atrial fibrillation, suggesting that the medications are helping to maintain a normal rhythm. The patient also has hypertension, which is being managed with amlodipine and metoprolol. However, his blood pressure readings have been borderline high, even with the increased dose of amlodipine. In addition to his cardiac issues, the patient expresses interest in dietary consultation and nutrition advice to help manage his blood pressure and overall health. Review of Systems Cardiovascular: Negative for chest pain, dyspnea on exertion and palpitations. All other systems reviewed and are negative. Since he has been cardioverted, he did not realize that he may have had subtle of atrial fibrillation which he now feels back to normal with being in sinus rhythm Objective BP 154/82 Pulse 53 Ht 1.829 m (6') Wt 122 kg (270 lb) BMI 36.62 kg/m Initially 148/90 LABS: CBC: Lab Results Component Value Date WBC 6.9 05/05/2024 RBC 5.45 05/05/2024 HGB 16.9 05/05/2024 HCT 48.1 05/05/2024 MCV 88 05/05/2024 MCH 31.0 05/05/2024 MCHC 35.1 05/05/2024 RDW 12.6 05/05/2024 PLT 204 05/05/2024 CBC with Differential: Lab Results Component Value Date WBC 6.9 05/05/2024 RBC 5.45 05/05/2024 HGB 16.9 05/05/2024 HCT 48.1 05/05/2024 PLT 204 05/05/2024 MCV 88 05/05/2024 MCH 31.0 05/05/2024 MCHC 35.1 05/05/2024 RDW 12.6 05/05/2024 NRBC 0.0 05/05/2024 CMP: Lab Results Component Value Date NA 138 05/08/2024 K 3.9 05/08/2024 CL 105 05/08/2024 CO2 25 05/08/2024 BUN 18 05/08/2024 CREATININE 0.90 05/08/2024 GLUCOSE 92 05/08/2024 PROT 7.4 05/05/2024 CALCIUM 9.2 05/08/2024 BILITOT 0.8 05/05/2024 ALKPHOS 36 05/05/2024 AST 26 05/05/2024 ALT 27 05/05/2024 BMP: Lab Results Component Value Date NA 138 05/08/2024 K 3.9 05/08/2024 CL 105 05/08/2024 CO2 25 05/08/2024 BUN 18 05/08/2024 CREATININE 0.90 05/08/2024 CALCIUM 9.2 05/08/2024 GLUCOSE 92 05/08/2024 Magnesium: Lab Results Component Value Date MG 2.05 05/08/2024 Physical Exam Constitutional: General: Awake. Appearance: Normal and healthy appearance. Well-developed and not in distress. Obese. Neck: Vascular: No JVR. JVD normal. Pulmonary: Effort: Pulmonary effort is normal. Breath sounds: Normal breath sounds. No wheezing. No rhonchi. No rales. Chest: Chest wall: Not tender to palpatation. Cardiovascular: PMI at left midclavicular line. Normal rate. Regular rhythm. Normal S1. Normal S2. Murmurs: There is no murmur. No gallop. No click. No rub. Pulses: Intact distal pulses. Edema: Peripheral edema absent. Abdominal: Tenderness: There is no abdominal tenderness. Musculoskeletal: Normal range of motion. General: No tenderness. Skin: General: Skin is warm and dry. Neurological: General: No focal deficit present. Mental Status: Alert and oriented to person, place and time. Assessment & Plan Paroxysmal Atrial Fibrillation Paroxysmal atrial fibrillation controlled with dofetilide and metoprolol. Cardioversion successful.Regular ECGs required for QT monitoring. - Prescribe 90-day supply of dofetilide. Rx sent - Perform ECG twice a year for QT monitoring. Alternate visit with cardiology Hypertension Blood pressure at 148/90 mmHg, slightly above target. Hypertension increases arrhythmia risk. - Repeat blood pressure measurement today. - Continue current antihypertensive regimen. - Discuss additional antihypertensive medication with Dr. Lutz. Anticoagulation Management On Eliquis without significant bleeding. Periodic blood work needed for anemia monitoring. - Defer Eliquis management to primary care physician. - Ensure periodic complete blood count. Kidney Function Monitoring Jeannette patient's concerns about kidney function. We reviewed that dofetilide and Eliquis are not causing kidney dysfunction, however if he were to have kidney dysfunction, medication dosing may need mel altered or discontinued. Advised hydration and blood pressure control for kidney protection. - Advise hydration with 80-100 ounces of water daily. - Ensure blood pressure is controlled. - Advise periodic kidney function tests with primary care physician. Diet and Exercise Counseling Advised on diet and exercise for cardiovascular health. Low sodium, regular aerobic exercise, and limited caffeine recommended. - Initiate dietary consult for heart-healthy diet. - Advise 150 minutes of moderate aerobic exercise weekly. - Advise sodium intake of 2 grams or less daily. - Provide information on dietary guidelines from the [place] [employer] - Referral to dietary counseling made Counseled greater than 50% of the visit. The patient and I discussed arrhythmia, ECG, shared decision making, dietary recommendations, treatment options, risk, benefits, and imponderables. Lifestyle modifications reviewed. All questions answered. Patient and appreciative of care Assessment & Plan Atrial fibrillation, persistent (Multi) High risk medication use Cardiomyopathy, hypertrophic (Multi) Essential hypertension LVH (left ventricular hypertrophy) Mixed hyperlipidemia BMI 36.0-36.9,adult Encounter for medication review and counseling Encounter to discuss treatment options Never smoked tobacco Fozia Ramos MD This medical note was created with the assistance of artificial intelligence (AI) for documentationpurposes. The content has been reviewed and confirmed by the healthcare provider for accuracy and completeness. Patient consented to the use of audio recording and use of AI during their visit. I, , personally performed the services described in the documentation as scribed by the nurse in my presence, and confirm it is both accurate and complete. documented in this [facility]Prem[facility] Work Phone: [phone] Instructions* Patient Instructions* Jasmin Richards RN - 05/23/2024 12:00 PM EDT Continue same medications/treatment. Patient educated on proper medication use. Patient educated on risk factor modification. Please bring any lab results from other providers/physicians to your next appointment. Please bring all medicines, vitamins, and herbal supplements with you when you come to the office. Prescriptions will not be filled unless you are compliant with your follow up appointments or have a follow up appointment scheduled as per instruction of your physician. Refills should be requested at the time of your visit. Follow up with Dr. Ramos in 1 year JASMIN Vazquez RN, AM SCRIBING FOR AND IN THE PRESENCE OF DR. FOZAI RAMOS MD, FACC, FACP, FHRS documented in this encounterPremier [facility] Work Phone: [phone] History of Present illness Narrative* Raine Bronson, MYA-CREDIT RATING CHECKER - 05/13/2024 1:40 PM EDT Skin Check Location: Patient requests a skin examination from the waist up Dermatologic history: no history of skin cancer, no history of atypical moles, no family history ofmelanoma Last visit: 1 year ago Established patient Lesions: Location: forehead Duration: few months Quality: itchy Modifying factors: none Associated symptoms: bump Treatments: none All pertinent medical history, medications, and allergies were reviewed. General Exam: alert, oriented to person, place, and time, normal affect, well appearing Unaccompanied A complete skin exam was offered, pt declined. Areas not examined despite medical recommendation: From the waist down Scalp, Examined Head, Face Examined Neck Examined Chest Examined Back Examined Abdomen Examined Right arm Examined Left arm Examined Hands Examined Digits,nails: Examined Lymphatics: 1. Melanocytic nevus of face, other location Head - Anterior (Face) Scattered benign appearing, regular brown to light brown melanocytic papules and macules with similar morphology Counseled regarding these benign growths. Rarely, a nevus can develop into malignant melanoma, so any changing nevi should be promptly re-evaluated. 2. Melanocytic nevus of trunk (2) Arms, Trunk Scattered benign appearing, regular brown to light brown melanocytic papules and macules with similar morphology Counseled regarding these benign growths. Rarely, a nevus can develop into malignant melanoma, so any changing nevi should be promptly re-evaluated. 3. Melanocytic nevus of upper extremity, unspecified laterality Scattered benign appearing, regular brown to light brown melanocytic papules and macules with similar morphology Counseled regarding these benign growths. Rarely, a nevus can develop into malignant melanoma, so any changing nevi should be promptly re-evaluated. 4. Seborrheic keratosis (3) Arms, Head, Trunk Stuck on verrucous, variably pigmented papules and plaques. Patient was counseled regarding these benign growths. Removal is normally not necessary, but they may be removed if they are symptomatic or for cosmetic reasons. 5. Lentigines (3) Arms, Head - Anterior (Face), Trunk Scattered euceda macules in sun-exposed areas. The patient was informed that lentigines are benign pigmented lesions that occur on sun-exposed andsun-damaged skin. No treatment is necessary. Recommended regular use of broad spectrum sunscreen SPF 30 or higher 6. Capillary angioma Scattered islas-red papule(s). The patient was informed that angiomas are benign growths on the the skin. No treatment is necessary. 7. Inflamed seborrheic keratosis Right Forehead Inflamed seborrheic keratoses: pink and brown stuck on verrucous scaly papule with surrounding erythema and bloody crust. The patient was informed that symptomatic seborrheic keratoses are benign growths that become inflamed, itchy, tender, traumatized, caught on clothing, or bleed. Symptomatic lesions can be treated with cryotherapy or curretage. Thicker lesions treated with cryotherapy may require more than one treatment. The patient was instructed to notify the office if abnormal redness or tenderness develops atthe treatment site. Cryotherapy today, see procedure note. Diagnosis: Inflamed seborrheic keratosis Indication: Inflamed Consent: Verbal consent was obtained and risks were discussed, including, but not limited to risks of scarring, darker or state director pigmentary changes, recurrence, incomplete removal and infection. Method: Liquid nitrogen was used to treat the lesion(s) with two 5-10 second freeze-thaw cycles Number of lesions treated: 1 Post-procedure instructions: Instructions were given orally and in writing. The office will be contacted if the lesion fails to resolve despite treatment, or if a side effect develops such as abnormal crusting, scabbing, redness or tenderness Cryotherapy, skin lesion - Right Forehead Next Visit: 1 year skin exam documented in this encounterThree Rivers [id number] Nurse Note* Mayte Thorpe RN - 05/08/2024 1:04 PM EDT Patient discharged to home with . Discharge paperwork, new medications, and follow up appointments discussed. No questions at the time of discharge from patient. Iv removed with tip intact. Tele pack removed and returned to front line leader. [facility]03-27-2025 Nurse Note* Mayte Thorpe RN - 05/08/2024 1:04 PM EDT Patient discharged to home with . Discharge paperwork, new medications, and follow up appointments discussed. No questions at the time of discharge from patient. Iv removed with tip intact. Tele pack removed and returned to front line leader. * Surjit Rios RN - 05/08/2024 11:41 AM EDT Provided patient with first 30 day supply of Dofetilide. Educated patient on dosing instructions and answered questions. Next fill $0 through insurance * Surjit Rios RN - 05/07/2024 1:30 PM EDT Referral noted for Dofetilide assistance documented in this encounterPrem[facility] Work Phone: [phone] Hospital Discharge instructions* Discharge Instructions* EUN Patricia - 05/08/2024 12:00 PM EDT Images from the original note were not included. CARDIOVERSION DISCHARGE INSTRUCTIONS FOR SUDDEN AND SEVERE CHEST PAIN, SHORTNESS OF BREATH, SIGNS OF STROKE OR CHANGES IN MENTAL STATUS YOU SHOULD CALL 911 IMMEDIATELY. FOR NEXT 24 HOURS - Upon discharge, you should return home and rest for the remainder of the day and evening. You do not have to stay on bed rest but should not be very active. It is recommended a responsible adult be with you for the first 24 hours after the procedure. - No driving for 24 hours after procedure. Please arrange for someone to drive you home from the hospital today. No driving until your follow-up appointment with your provider if you have had a passing out spell in the recent past or previously restricted from driving. - Do not drive, operate machinery, or use power tools for 24 hours after your procedure. - Do not make any legal decisions for 24 hours after your procedure. - Do not drink alcoholic beverages for 24 hours after your procedure. [facility] Work Phone: [phone]) 244-681603-27-2025 History of Present illness Narrative* Lorelei Alvarez RN - 05/08/2024 11:44 AM EDT 05/08/24 1143 Discharge Planning Living Arrangements Spouse/significant other Support Systems Spouse/significant other Assistance Needed none - independent Type of Residence Private residence Home or Post Acute Services None Expected Discharge Disposition Home Stroke Family Assessment Stroke Family Assessment Needed No Intensity of Service Intensity of Service 0-30 min * Keyur Reyez MD - 05/07/2024 12:22 PM EDT Endocrinology Progress Note Patient: Cristian Chambers Unit/Bed: 804/804-A Date of : 1960 Acct: [id number] Admitting Diagnosis: Atrial fibrillation, persistent (Multi) [I48.19] Date: 05/05/2024 Hospital Day: 2 Attending: Fozia Ramos MD Complaint: No chief complaint on file. Assessment Patient Active Problem List Diagnosis Essential hypertension Hyperlipidemia LVH (left ventricular hypertrophy) Obesity (BMI 30.0-34.9) Cardiomyopathy, hypertrophic (Multi) Myocardial infarction (Multi) Lightheadedness Glaucoma suspect of both eyes Drug-induced erectile dysfunction Chest pain Age-related nuclear cataract of both eyes A-fib (Multi) Never smoked tobacco Encounter for medication review and counseling Encounter to discuss treatment options Encounter to establish care with new doctor Atrial fibrillation, persistent (Multi) Plan: Hypothyroid Afib Continue Levothyroxine Fu call [phone] in 1-2 weeks SUBJECTIVE Doing fair S/p Cardioversion VITALS Vitals: 05/07/24 0729 05/07/24 1110 05/07/24 1207 05/07/24 1212 BP: 130/90 (!) 165/102 101/64 BP Location: Right arm Patient Position: Lying Pulse: 85 88 57 Resp: 19 16 18 Temp: 36.3 C (97.3 F) 36.3 C (97.3 F) TempSrc: Temporal SpO2: 97% 97% 98% 98% Weight: Height: Intake/Output Summary (Last 24 hours) at 05/07/2024 1223 Last data filed at 05/07/2024 1214 Gross per 24 hour Intake 360 ml Output 0 ml Net 360 ml Wt Readings from Last 4 Encounters: 05/05/24 116 kg (255 lb 11.7 oz) 03/25/24 116 kg (255 lb) 03/13/24 117 kg (258 lb) 02/25/24 120 kg (265 lb) Allergies: No Known Allergies PHYSICAL EXAM Physical Exam LABS Magnesium: Results from last 7 days Lab Units 05/07/24 0537 05/06/24 0438 05/05/24 0751 MAGNESIUM mg/dL 2.14 2.09 2.12 Lipid Panel: Lab Review Lab Results Component Value Date BILITOT 0.8 05/05/2024 CALCIUM 9.1 05/07/2024 CO2 25 05/07/2024 CL 107 05/07/2024 CREATININE 0.94 05/07/2024 GLUCOSE 105 (H) 05/07/2024 ALKPHOS 36 05/05/2024 K 3.8 05/07/2024 PROT 7.4 05/05/2024 NA 139 05/07/2024 AST 26 05/05/2024 ALT 27 05/05/2024 BUN 20 05/07/2024 ANIONGAP 11 05/07/2024 MG 2.14 05/07/2024 ALBUMIN 4.5 05/05/2024 No results found for: TRIG , CHOL , LDLCALC , HDL No results found for: HGBA1C The ASCVD Risk score (Hetal INIGUEZ, et al., 2019) failed to calculate for the following reasons: Risk score cannot be calculated because patient has a medical history suggesting prior/existing ASCVD Lab Results Component Value Date NA 139 05/07/2024 K 3.8 05/07/2024 CL 107 05/07/2024 CO2 25 05/07/2024 BUN 20 05/07/2024 CREATININE 0.94 05/07/2024 CALCIUM 9.1 05/07/2024 ALBUMIN 4.5 05/05/2024 PROT 7.4 05/05/2024 BILITOT 0.8 05/05/2024 ALKPHOS 36 05/05/2024 ALT 27 05/05/2024 AST 26 05/05/2024 GLUCOSE 105 (H) 05/07/2024 amLODIPine, 10 mg, oral, Daily apixaban, 5 mg, oral, BID aspirin, 81 mg, oral, Daily dofetilide, 250 mcg, oral, BID levothyroxine, 25 mcg, oral, Daily metoprolol succinate XL, 50 mg, oral, BID pravastatin, 40 mg, oral, Nightly * EUN Patricia - 05/06/2024 2:31 PM EDT Cardiology Progress Note Patient: Cristian Chambers Unit/Bed: 804/804-A Date of : 1960 Acct: [id number] Admitting Diagnosis: Atrial fibrillation, persistent (Multi) [I48.19] Date: 05/05/2024 Hospital Day: 1 Attending: Fozia Ramos MD Rounding CATHY/Supervisor Chassis Assembly: EUN Patricia, Primary Supervisor Chassis Assembly: Dr. Fozia Ramos Complaint: No chief complaint on file. SUBJECTIVE Patient up out of bed ambulating in room in gonzalez Denies palpitations, dizziness,, or lightheadedness Remains in atrial fibrillation with controlled ventricular rate VITALS Visit Vitals BP 126/85 (BP Location: Left arm, Patient Position: Sitting) Pulse 82 Temp 36.5 C (97.7 F) (Temporal) Resp 18 I/O: Intake/Output Summary (Last 24 hours) at 05/06/2024 1431 Last data filed at 05/06/2024 1100 Gross per 24 hour Intake 360 ml Output -- Net 360 ml Allergies: No Known Allergies PHYSICAL EXAM Physical Exam Constitutional: Appearance: Normal appearance. HENT: Head: Normocephalic. Eyes: Conjunctiva/sclera: Conjunctivae normal. Cardiovascular: Rate and Rhythm: Normal rate. Rhythm irregular. Pulses: Normal pulses. Heart sounds: Normal heart sounds. Pulmonary: Effort: Pulmonary effort is normal. Breath sounds: Normal breath sounds. Musculoskeletal: General: Normal range of motion. Skin: General: Skin is warm and dry. Neurological: General: No focal deficit present. Mental Status: He is alert and oriented to person, place, and time. Psychiatric: Mood and Affect: Mood normal. Behavior: Behavior normal. LABS Results for orders placed or performed during the hospital encounter of 05/05/24 (from the past 24 hours) ECG 12 Lead Result Value Ref Range Ventricular Rate 86 BPM Atrial Rate 250 BPM QRS Duration 114 ms QT Interval 420 ms QTC Calculation(Bazett) 502 ms R [place] 0 degrees T [place] 142 degrees QRS Count 14 beats Q Onset 211 ms T Offset 421 ms QTC Fredericia 473 ms Basic metabolic panel Result Value Ref Range Glucose 102 (H) 74 - 99 mg/dL Sodium 139 136 - 145 mmol/L Potassium 3.9 3.5 - 5.3 mmol/L Chloride 106 98 - 107 mmol/L Bicarbonate 25 21 - 32 mmol/L Anion Gap 12 10 - 20 mmol/L Urea Nitrogen 17 6 - 23 mg/dL Creatinine 0.90 0.50 - 1.30 mg/dL eGFR >90 >60 mL/min/1.73m*2 Calcium 9.2 8.6 - 10.3 mg/dL Magnesium Result Value Ref Range Magnesium 2.09 1.60 - 2.40 mg/dL Lavender Top Result Value Ref Range Extra Tube Hold for add-ons. Electrocardiogram 12 lead Result Value Ref Range Ventricular Rate 89 BPM Atrial Rate 108 BPM QRS Duration 110 ms QT Interval 408 ms QTC Calculation(Bazett) 496 ms R [place] 15 degrees T [place] 142 degrees QRS Count 14 beats Q Onset 212 ms T Offset 416 ms QTC Fredericia 465 ms ECG 12 lead Result Value Ref Range Ventricular Rate 97 BPM Atrial Rate 81 BPM QRS Duration 112 ms QT Interval 358 ms QTC Calculation(Bazett) 454 ms R [place] 24 degrees T [place] 129 degrees QRS Count 16 beats Q Onset 213 ms T Offset 392 ms QTC Fredericia 420 ms ECG 12 lead Result Value Ref Range Ventricular Rate 91 BPM Atrial Rate 234 BPM QRS Duration 114 ms QT Interval 404 ms QTC Calculation(Bazett) 496 ms R [place] 14 degrees T [place] 141 degrees QRS Count 15 beats Q Onset 211 ms T Offset 413 ms QTC Fredericia 464 ms Scheduled medications amLODIPine, 10 mg, oral, Daily apixaban, 5 mg, oral, BID aspirin, 81 mg, oral, Daily dofetilide, 250 mcg, oral, BID levothyroxine, 25 mcg, oral, Daily metoprolol succinate XL, 50 mg, oral, BID pravastatin, 40 mg, oral, Nightly Continuous medications PRN medications PRN medications: acetaminophen, docusate sodium, melatonin ECG 12 lead Result Date: 05/06/2024 Atrial fibrillation with premature ventricular or aberrantly conducted complexes ST & T wave abnormality, consider anterolateral ischemia Prolonged QT Abnormal ECG When compared with ECG of 06-MAY-2024 06:49, (unconfirmed) No significant change was found Electrocardiogram 12 lead Result Date: 05/06/[address] & T wave abnormality, consider anterolateral ischemia Prolonged QT Abnormal ECG When compared with ECG of 05-MAY-2024 23:09, (unconfirmed) No significant change was found ECG 12 Lead Result Date: 05/06/2024 Atrial fibrillation Minimal voltage criteria for LVH, may be normal variant ST & T wave abnormality, consider anterolateral ischemia Prolonged QT Abnormal ECG When compared with ECG of 05-MAY-2024 12:00, (unconfirmed) No significant change was found ECG 12 lead Result Date: 05/05/[address] & T wave abnormality, consider anterolateral ischemia Abnormal ECG When compared with ECG of 05-MAY-2024 08:20, T wave inversion less evident in Anterior leads ECG 12 Lead Result Date: 05/05/[address] & Marked T wave abnormality, consider anterolateral ischemia Prolonged QT Abnormal ECG No previous ECGs available Confirmed by Fozia Ramos ([id number]) on 05/05/2024 9:05:14 AM Encounter Date: 05/05/24 ECG 12 lead Result Value Ventricular Rate 91 Atrial Rate 234 QRS Duration 114 QT Interval 404 QTC Calculation(Bazett) 496 R [place] 14 T [place] 141 QRS Count 15 Q Onset 211 T Offset 413 QTC Fredericia 464 Narrative Atrial fibrillation with premature ventricular or aberrantly conducted complexes ST & T wave abnormality, consider anterolateral ischemia Prolonged QT Abnormal ECG When compared with ECG of 06-MAY-2024 06:49, (unconfirmed) No significant change was found Tele Monitoring: Atrial fibrillation 70 - 140 BPM /EKG shows atrial fibrillation with heart rate 89bpm and QTc 496 ms Assessment Patient Active Problem List Diagnosis Essential hypertension Hyperlipidemia LVH (left ventricular hypertrophy) Obesity (BMI 30.0-34.9) Cardiomyopathy, hypertrophic (Multi) Myocardial infarction (Multi) Lightheadedness Glaucoma suspect of both eyes Drug-induced erectile dysfunction Chest pain Age-related nuclear cataract of both eyes A-fib (Multi) Never smoked tobacco Encounter for medication review and counseling Encounter to discuss treatment options Encounter to establish care with new doctor Atrial fibrillation, persistent (Multi) Clinical impression: 1. Persistent atrial fibrillation 2. Apical hypertrophic cardiomyopathy 3. 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 Type of Residence Private residence Expected Discharge Disposition Home Does the patient need discharge transport arranged? No Intensity of Service Intensity of Service 0-30 min Admitted for first 5 dose Dofetilide drug load. First dose was given 05/05 at 10am. Cardiology will consult proof load mechanic when ready. HOME no needs. [facility] Work Phone: [phone]) 941-994503-27-2025 Nurse Note* Surjit Rios RN - 05/08/2024 11:41 AM EDT Provided patient with first 30 day supply of Dofetilide. Educated patient on dosing instructions and answered questions. Next fill $0 through insurance [facility]03-27-2025 Plan of care note* Care Plan - Mayte Thorpe RN - 05/08/2024 9:14 AM EDT The clinical goals for the shift include Patient will remain free from injury throughout entire shift [facility] Work Phone: [phone]) 230-678803-27-2025 Miscellaneous Notes* Care Plan - Mayte Thorpe RN - 05/08/2024 9:14 AM EDT The clinical goals for the shift include Patient will remain free from injury throughout entire shift * Care Plan - Crys Schmitt RN - 05/07/2024 9:14 PM EDT Problem: Pain - Adult Goal: Verbalizes/displays adequate comfort level or baseline comfort level Outcome: Progressing Problem: Safety - Adult Goal: Free from fall injury Outcome: Progressing Problem: Discharge Planning Goal: Discharge to home or other facility with appropriate resources Outcome: Progressing Problem: Chronic Conditions and Co-morbidities Goal: Patient's chronic conditions and co-morbidity symptoms are monitored and maintained or improved Outcome: Progressing Problem: Nutrition Goal: Nutrient intake appropriate for maintaining nutritional needs Outcome: Progressing Problem: Skin Goal: Promote/optimize nutrition Outcome: Progressing Goal: Promote skin healing Outcome: Progressing Problem: Fall/Injury Goal: Not fall by end of shift Outcome: Progressing Goal: Be free from injury by end of the shift Outcome: Progressing The patient's goals for the shift include rest The clinical goals for the shift include patient will remain in NSR throughout shift. * Pre-Sedation Documentation - Fozia Ramos MD - 05/07/2024 11:45 AM EDT Sedation Plan ASA 2 Mallampati class: II. Risks, benefits, and alternatives discussed with patient. * Care Plan - Tierney Carey RN - 05/07/2024 10:00 AM EDT The patient's goals for the shift include The clinical goals for the shift include patient will convert to NSR post cardioversion * Care Plan - Crys Schmitt RN - 05/06/2024 8:52 PM EDT Problem: Pain - Adult Goal: Verbalizes/displays adequate comfort level or baseline comfort level Outcome: Progressing Problem: Safety - Adult Goal: Free from fall injury Outcome: Progressing Problem: Discharge Planning Goal: Discharge to home or other facility with appropriate resources Outcome: Progressing Problem: Chronic Conditions and Co-morbidities Goal: Patient's chronic conditions and co-morbidity symptoms are monitored and maintained or improved Outcome: Progressing Problem: Nutrition Goal: Nutrient intake appropriate for maintaining nutritional needs Outcome: Progressing Problem: Skin Goal: Promote/optimize nutrition Outcome: Progressing Goal: Promote skin healing Outcome: Progressing Problem: Fall/Injury Goal: Not fall by end of shift Outcome: Progressing Goal: Be free from injury by end of the shift Outcome: Progressing The patient's goals for the shift include rest The clinical goals for the shift include pt will remain hemodynamically stable througout shift. * Care Plan - Mayte Thorpe RN - 05/06/2024 10:08 AM EDT The clinical goals for the shift include Patient will tolerate new medications * Care Plan - Tierney Jefferson RN - 05/06/2024 2:49 AM EDT Problem: Pain - Adult Goal: Verbalizes/displays adequate comfort level or baseline comfort level Outcome: Progressing Problem: Safety - Adult Goal: Free from fall injury Outcome: Progressing Problem: Discharge Planning Goal: Discharge to home or other facility with appropriate resources Outcome: Progressing Problem: Chronic Conditions and Co-morbidities Goal: Patient's chronic conditions and co-morbidity symptoms are monitored and maintained or improved Outcome: Progressing Problem: Nutrition Goal: Nutrient intake appropriate for maintaining nutritional needs Outcome: Progressing Problem: Skin Goal: Decreased wound size/increased tissue granulation at next dressing change Outcome: Progressing Goal: Participates in plan/prevention/treatment measures Outcome: Progressing Goal: Prevent/manage excess moisture Outcome: Progressing Goal: Prevent/minimize sheer/friction injuries Outcome: Progressing Goal: Promote/optimize nutrition Outcome: Progressing Goal: Promote skin healing Outcome: Progressing The patient's goals for the shift include The clinical goals for the shift include patient will tolerate new medication * Care Plan - Tierney Carey RN - 05/05/2024 9:14 AM EDT The patient's goals for the shift include The clinical goals for the shift include documented in this [facility] Work Phone: 1(700) 471-247303-26-2025 Plan of care note* Care Plan - Crys Schmitt RN - 05/07/2024 9:14 PM EDT Problem: Pain - Adult Goal: Verbalizes/displays adequate comfort level or baseline comfort level Outcome: Progressing Problem: Safety - Adult Goal: Free from fall injury Outcome: Progressing Problem: Discharge Planning Goal: Discharge to home or other facility with appropriate resources Outcome: Progressing Problem: Chronic Conditions and Co-morbidities Goal: Patient's chronic conditions and co-morbidity symptoms are monitored and maintained or improved Outcome: Progressing Problem: Nutrition Goal: Nutrient intake appropriate for maintaining nutritional needs Outcome: Progressing Problem: Skin Goal: Promote/optimize nutrition Outcome: Progressing Goal: Promote skin healing Outcome: Progressing Problem: Fall/Injury Goal: Not fall by end of shift Outcome: Progressing Goal: Be free from injury by end of the shift Outcome: Progressing The patient's goals for the shift include rest The clinical goals for the shift include patient will remain in NSR throughout shift. [facility]03-26-2025 Attending History and physical note * Fozia Ramos MD - 05/07/2024 2:32 PM EDT H&P reviewed. The patient was examined and there are no changes to the H&P. In addition, He is tolerating dofetilide. Patient denies any arrhythmia symptoms of lightheadedness, near syncope, or syncope. Lab Results Component Value Date WBC 6.9 05/05/2024 HGB 16.9 05/05/2024 HCT 48.1 05/05/2024 MCV 88 05/05/2024 PLT 204 05/05/2024 Lab Results Component Value Date GLUCOSE 105 (H) 05/07/2024 CALCIUM 9.1 05/07/2024 NA 139 05/07/2024 K 3.8 05/07/2024 CO2 25 05/07/2024 CL 107 05/07/2024 BUN 20 05/07/2024 CREATININE 0.94 05/07/2024 Lab Results Component Value Date INR 1.3 (H) 05/05/2024 PROTIME 14.5 (H) 05/05/2024 Counseling with 50% of visit performed. Patient and I discussed dofetilide drug load, monitoring, preoperative cardiac evaluation, treatment options, cardioversion, risk, benefits, and imponderables.E consent obtained. Will recheck QTc after cardioversion. All questions answered. Patient appreciative care Source Note - Fozia Ramos MD - 05/05/2024 8:55 AM EDT History Of Present Illness: Cristian Chambers is a 63 y.o. male presenting with atrial fibrillation. He is here for drug load. Patient denies any arrhythmia symptoms of palpitation, lightheadedness, near syncope, or syncope. Last Recorded Vitals: Vitals: 05/05/24 0813 05/05/24 0815 BP: 134/87 134/87 BP Location: Right arm Patient Position: Sitting Pulse: 75 75 Resp: 18 18 Temp: 36.4 C (97.5 F) 36.4 C (97.5 F) TempSrc: Temporal SpO2: 96% Weight: 116 kg (255 lb 11.7 oz) Height: 1.829 m (6' 0.01 ) Last Labs: CBC - 05/05/2024: 7:51 AM 6.9 16.9 204 48.1 CMP - 05/05/2024: 7:51 AM 9.9 7.4 26 --- 0.8 _ 4.5 27 36 PTT - 05/05/2024: 7:51 AM 1.3 14.5 35 No results found for: TROPHS , BNP , HGBA1C , LDLCALC , VLDL Last I/O: No intake/output data recorded. Past Cardiology Tests (Last 3 Years): EKG: ECG 12 Lead 05/05/2024 Today, Atrial fibrillation. Normal axis. Qtc 480 ms. QT 410 ms ECG 12 lead (Clinic Performed) 03/25/2024 ECG 12 Lead 02/25/2024 Echo: Echocardiogram Stress Test 04/05/2023 LVEF 70 to 75% at peak exercise Transthoracic Echo (TTE) Complete 02/14/2023 Cardiac Imaging: MR cardiac morphology and function w and wo IV contrast 03/20/2023 Hypertrophic cardiomyopathy Past Medical History: He has a past medical history of Other specified abnormalities of plasma proteins and Personal history of other specified conditions. Past Surgical History: He has a past surgical history that includes Other surgical history (01/19/2021). Social History: He reports that he has never smoked. He has never used smokeless tobacco. He reports current alcohol use. He reports that he does not use drugs. Family History: Family History Problem Relation Name Age of Onset Atrial fibrillation Mother Heart disease Mother Hypertension Father Other (malignant neoplasm of prostate) Father Other (CABG) Father Diabetes Father Allergies: Patient has no known allergies. Inpatient Medications: Outpatient Medications: Current Outpatient Medications Medication Instructions amLODIPine (NORVASC) 10 mg, oral, Daily apixaban (ELIQUIS) 5 mg, oral, 2 times daily aspirin 81 mg, Daily metoprolol succinate XL (TOPROL-XL) 50 mg, oral, 2 times daily pravastatin (PRAVACHOL) 40 mg, oral, Nightly Lab Results Component Value Date WBC 6.9 05/05/2024 HGB 16.9 05/05/2024 HCT 48.1 05/05/2024 MCV 88 05/05/2024 PLT 204 05/05/2024 Lab Results Component Value Date GLUCOSE 111 (H) 05/05/2024 CALCIUM 9.9 05/05/2024 NA 139 05/05/2024 K 4.6 05/05/2024 CO2 31 05/05/2024 CL 103 05/05/2024 BUN 18 05/05/2024 CREATININE 1.08 05/05/2024 Lab Results Component Value Date INR 1.3 (H) 05/05/2024 PROTIME 14.5 (H) 05/05/2024 Review of Systems Constitutional: Negative for decreased appetite, fever, malaise/fatigue and weight gain. Cardiovascular: Positive for irregular heartbeat and leg swelling. Negative for near-syncope, orthopnea, palpitations, paroxysmal nocturnal dyspnea and syncope. Respiratory: Negative for shortness of breath. All other systems reviewed and are negative. Physical Exam: General No acute distress. Pleasant. HEENT EOMI Dry mucous membranes Neck supple Cardiovascular Inspection: JVD: none with patient sitting at 60 degrees Precordial bulge: none Palpation: Quality: Normal Precordium: normal impulses Auscultation: Quality of auscultation: Normal Irregular rhythm S1: normal intensity S2: normal intensity Clicks: none Gallops: none Rub: none Systolic murmurs: none Diastolic murmurs: none Pulses: 2+= radial, brachial, carotid Lungs Clear, no wheezing Abdomen Bowel sounds positive Extremities No lesions No edema Neuro Oriented x 3 Normal behavior Gait not tested Assessment/Plan Persistent atrial fibrillation. Amiodarone washed out as with patient. Given his age and apical hypertrophic cardiomyopathy, prefer not to use amiodarone long- term. Will start dofetilide. Monitor as per protocol. Abnormal TSH. Consult endocrinology as thyroid disease may be attributed to persistent atrial fibrillation High risk medication Eliquis. Continue Eliquis long-term Apical hypertrophic cardiomyopathy. Underwent evaluation by HCM team in the past. No significant outflow gradient. Low scar burden by cardiac MRI. No history of syncope. No family history of sudden cardiac arrest. Negative signal averaged ECG by only 1 of 3 criteria positive for late potentials. Given underlying hypertrophic cardiomyopathy, prefer to attempt to maintain sinus rhythm. Will monitorrhythm as noted above. Counseling greater than 50% visit performed. Patient and I discussed normal rhythm, atrial fibrillation, plan for dofetilide, cardioversion later this admission if remains in atrial fibrillation, amiodarone washout, endocrinology consult, treatment options, risk, benefits, and imponderables. All questions answered in detail. Patient appreciative care Code Status: No Order I spent 90 minutes in the professional and overall care of this patient. Fozia Ramos MD [facility] Work Phone: 1(679) 422-263303-26-2025 History and physical note* Fozia Ramos MD - 05/07/2024 2:32 PM EDT H&P reviewed. The patient was examined and there are no changes to the H&P. In addition, He is tolerating dofetilide. Patient denies any arrhythmia symptoms of lightheadedness, near syncope, or syncope. Lab Results Component Value Date WBC 6.9 05/05/2024 HGB 16.9 05/05/2024 HCT 48.1 05/05/2024 MCV 88 05/05/2024 PLT 204 05/05/2024 Lab Results Component Value Date GLUCOSE 105 (H) 05/07/2024 CALCIUM 9.1 05/07/2024 NA 139 05/07/2024 K 3.8 05/07/2024 CO2 25 05/07/2024 CL 107 05/07/2024 BUN 20 05/07/2024 CREATININE 0.94 05/07/2024 Lab Results Component Value Date INR 1.3 (H) 05/05/2024 PROTIME 14.5 (H) 05/05/2024 Counseling with 50% of visit performed. Patient and I discussed dofetilide drug load, monitoring, preoperative cardiac evaluation, treatment options, cardioversion, risk, benefits, and imponderables.E consent obtained. Will recheck QTc after cardioversion. All questions answered. Patient appreciative care Source Note - Fozia Ramos MD - 05/05/2024 8:55 AM EDT History Of Present Illness: Cristian Chambers is a 63 y.o. male presenting with atrial fibrillation. He is here for drug load. Patient denies any arrhythmia symptoms of palpitation, lightheadedness, near syncope, or syncope. Last Recorded Vitals: Vitals: 05/05/24 0813 05/05/24 0815 BP: 134/87 134/87 BP Location: Right arm Patient Position: Sitting Pulse: 75 75 Resp: 18 18 Temp: 36.4 C (97.5 F) 36.4 C (97.5 F) TempSrc: Temporal SpO2: 96% Weight: 116 kg (255 lb 11.7 oz) Height: 1.829 m (6' 0.01 ) Last Labs: CBC - 05/05/2024: 7:51 AM 6.9 16.9 204 48.1 CMP - 05/05/2024: 7:51 AM 9.9 7.4 26 --- 0.8 _ 4.5 27 36 PTT - 05/05/2024: 7:51 AM 1.3 14.5 35 No results found for: TROPHS , BNP , HGBA1C , LDLCALC , VLDL Last I/O: No intake/output data recorded. Past Cardiology Tests (Last 3 Years): EKG: ECG 12 Lead 05/05/2024 Today, Atrial fibrillation. Normal axis. Qtc 480 ms. QT 410 ms ECG 12 lead (Clinic Performed) 03/25/2024 ECG 12 Lead 02/25/2024 Echo: Echocardiogram Stress Test 04/05/2023 LVEF 70 to 75% at peak exercise Transthoracic Echo (TTE) Complete 02/14/2023 Cardiac Imaging: MR cardiac morphology and function w and wo IV contrast 03/20/2023 Hypertrophic cardiomyopathy Past Medical History: He has a past medical history of Other specified abnormalities of plasma proteins and Personal history of other specified conditions. Past Surgical History: He has a past surgical history that includes Other surgical history (01/19/2021). Social History: He reports that he has never smoked. He has never used smokeless tobacco. He reports current alcohol use. He reports that he does not use drugs. Family History: Family History Problem Relation Name Age of Onset Atrial fibrillation Mother Heart disease Mother Hypertension Father Other (malignant neoplasm of prostate) Father Other (CABG) Father Diabetes Father Allergies: Patient has no known allergies. Inpatient Medications: Outpatient Medications: Current Outpatient Medications Medication Instructions amLODIPine (NORVASC) 10 mg, oral, Daily apixaban (ELIQUIS) 5 mg, oral, 2 times daily aspirin 81 mg, Daily metoprolol succinate XL (TOPROL-XL) 50 mg, oral, 2 times daily pravastatin (PRAVACHOL) 40 mg, oral, Nightly Lab Results Component Value Date WBC 6.9 05/05/2024 HGB 16.9 05/05/2024 HCT 48.1 05/05/2024 MCV 88 05/05/2024 PLT 204 05/05/2024 Lab Results Component Value Date GLUCOSE 111 (H) 05/05/2024 CALCIUM 9.9 05/05/2024 NA 139 05/05/2024 K 4.6 05/05/2024 CO2 31 05/05/2024 CL 103 05/05/2024 BUN 18 05/05/2024 CREATININE 1.08 05/05/2024 Lab Results Component Value Date INR 1.3 (H) 05/05/2024 PROTIME 14.5 (H) 05/05/2024 Review of Systems Constitutional: Negative for decreased appetite, fever, malaise/fatigue and weight gain. Cardiovascular: Positive for irregular heartbeat and leg swelling. Negative for near-syncope, orthopnea, palpitations, paroxysmal nocturnal dyspnea and syncope. Respiratory: Negative for shortness of breath. All other systems reviewed and are negative. Physical Exam: General No acute distress. Pleasant. HEENT EOMI Dry mucous membranes Neck supple Cardiovascular Inspection: JVD: none with patient sitting at 60 degrees Precordial bulge: none Palpation: Quality: Normal Precordium: normal impulses Auscultation: Quality of auscultation: Normal Irregular rhythm S1: normal intensity S2: normal intensity Clicks: none Gallops: none Rub: none Systolic murmurs: none Diastolic murmurs: none Pulses: 2+= radial, brachial, carotid Lungs Clear, no wheezing Abdomen Bowel sounds positive Extremities No lesions No edema Neuro Oriented x 3 Normal behavior Gait not tested Assessment/Plan Persistent atrial fibrillation. Amiodarone washed out as with patient. Given his age and apical hypertrophic cardiomyopathy, prefer not to use amiodarone long- term. Will start dofetilide. Monitor as per protocol. Abnormal TSH. Consult endocrinology as thyroid disease may be attributed to persistent atrial fibrillation High risk medication Eliquis. Continue Eliquis long-term Apical hypertrophic cardiomyopathy. Underwent evaluation by HCM team in the past. No significant outflow gradient. Low scar burden by cardiac MRI. No history of syncope. No family history of sudden cardiac arrest. Negative signal averaged ECG by only 1 of 3 criteria positive for late potentials. Given underlying hypertrophic cardiomyopathy, prefer to attempt to maintain sinus rhythm. Will monitorrhythm as noted above. Counseling greater than 50% visit performed. Patient and I discussed normal rhythm, atrial fibrillation, plan for dofetilide, cardioversion later this admission if remains in atrial fibrillation, amiodarone washout, endocrinology consult, treatment options, risk, benefits, and imponderables. All questions answered in detail. Patient appreciative care Code Status: No Order I spent 90 minutes in the professional and overall care of this patient. Fozia Ramos MD * Fozia Ramos MD - 05/05/2024 8:55 AM EDT History Of Present Illness: Cristian Chambers is a 63 y.o. male presenting with atrial fibrillation. He is here for drug load. Patient denies any arrhythmia symptoms of palpitation, lightheadedness, near syncope, or syncope. Last Recorded Vitals: Vitals: 05/05/24 0813 05/05/24 0815 BP: 134/87 134/87 BP Location: Right arm Patient Position: Sitting Pulse: 75 75 Resp: 18 18 Temp: 36.4 C (97.5 F) 36.4 C (97.5 F) TempSrc: Temporal SpO2: 96% Weight: 116 kg (255 lb 11.7 oz) Height: 1.829 m (6' 0.01 ) Last Labs: CBC - 05/05/2024: 7:51 AM 6.9 16.9 204 48.1 CMP - 05/05/2024: 7:51 AM 9.9 7.4 26 --- 0.8 _ 4.5 27 36 PTT - 05/05/2024: 7:51 AM 1.3 14.5 35 No results found for: TROPHS , BNP , HGBA1C , LDLCALC , VLDL Last I/O: No intake/output data recorded. Past Cardiology Tests (Last 3 Years): EKG: ECG 12 Lead 05/05/2024 Today, Atrial fibrillation. Normal axis. Qtc 480 ms. QT 410 ms ECG 12 lead (Clinic Performed) 03/25/2024 ECG 12 Lead 02/25/2024 Echo: Echocardiogram Stress Test 04/05/2023 LVEF 70 to 75% at peak exercise Transthoracic Echo (TTE) Complete 02/14/2023 Cardiac Imaging: MR cardiac morphology and function w and wo IV contrast 03/20/2023 Hypertrophic cardiomyopathy Past Medical History: He has a past medical history of Other specified abnormalities of plasma proteins and Personal history of other specified conditions. Past Surgical History: He has a past surgical history that includes Other surgical history (01/19/2021). Social History: He reports that he has never smoked. He has never used smokeless tobacco. He reports current alcohol use. He reports that he does not use drugs. Family History: Family History Problem Relation Name Age of Onset Atrial fibrillation Mother Heart disease Mother Hypertension Father Other (malignant neoplasm of prostate) Father Other (CABG) Father Diabetes Father Allergies: Patient has no known allergies. Inpatient Medications: Outpatient Medications: Current Outpatient Medications Medication Instructions amLODIPine (NORVASC) 10 mg, oral, Daily apixaban (ELIQUIS) 5 mg, oral, 2 times daily aspirin 81 mg, Daily metoprolol succinate XL (TOPROL-XL) 50 mg, oral, 2 times daily pravastatin (PRAVACHOL) 40 mg, oral, Nightly Lab Results Component Value Date WBC 6.9 05/05/2024 HGB 16.9 05/05/2024 HCT 48.1 05/05/2024 MCV 88 05/05/2024 PLT 204 05/05/2024 Lab Results Component Value Date GLUCOSE 111 (H) 05/05/2024 CALCIUM 9.9 05/05/2024 NA 139 05/05/2024 K 4.6 05/05/2024 CO2 31 05/05/2024 CL 103 05/05/2024 BUN 18 05/05/2024 CREATININE 1.08 05/05/2024 Lab Results Component Value Date INR 1.3 (H) 05/05/2024 PROTIME 14.5 (H) 05/05/2024 Review of Systems Constitutional: Negative for decreased appetite, fever, malaise/fatigue and weight gain. Cardiovascular: Positive for irregular heartbeat and leg swelling. Negative for near-syncope, orthopnea, palpitations, paroxysmal nocturnal dyspnea and syncope. Respiratory: Negative for shortness of breath. All other systems reviewed and are negative. Physical Exam: General No acute distress. Pleasant. HEENT EOMI Dry mucous membranes Neck supple Cardiovascular Inspection: JVD: none with patient sitting at 60 degrees Precordial bulge: none Palpation: Quality: Normal Precordium: normal impulses Auscultation: Quality of auscultation: Normal Irregular rhythm S1: normal intensity S2: normal intensity Clicks: none Gallops: none Rub: none Systolic murmurs: none Diastolic murmurs: none Pulses: 2+= radial, brachial, carotid Lungs Clear, no wheezing Abdomen Bowel sounds positive Extremities No lesions No edema Neuro Oriented x 3 Normal behavior Gait not tested Assessment/Plan Persistent atrial fibrillation. Amiodarone washed out as with patient. Given his age and apical hypertrophic cardiomyopathy, prefer not to use amiodarone long- term. Will start dofetilide. Monitor as per protocol. Abnormal TSH. Consult endocrinology as thyroid disease may be attributed to persistent atrial fibrillation High risk medication Eliquis. Continue Eliquis long-term Apical hypertrophic cardiomyopathy. Underwent evaluation by HCM team in the past. No significant outflow gradient. Low scar burden by cardiac MRI. No history of syncope. No family history of sudden cardiac arrest. Negative signal averaged ECG by only 1 of 3 criteria positive for late potentials. Given underlying hypertrophic cardiomyopathy, prefer to attempt to maintain sinus rhythm. Will monitorrhythm as noted above. Counseling greater than 50% visit performed. Patient and I discussed normal rhythm, atrial fibrillation, plan for dofetilide, cardioversion later this admission if remains in atrial fibrillation, amiodarone washout, endocrinology consult, treatment options, risk, benefits, and imponderables. All questions answered in detail. Patient appreciative care Code Status: No Order I spent 90 minutes in the professional and overall care of this patient. Fozia Ramos MD documented in this encounterUnTri[facility] Work Phone: 1(475) 902-932603-26-2025 Nurse Note* Surjit Rios RN - 05/07/2024 1:30 PM EDT Referral noted for Dofetilide assistance [facility] Work Phone: 1(297) 567-272003-26-2025 Nurse procedure note* Pre-Sedation Documentation - Fozia Ramos MD - 05/07/2024 11:45 AM EDT Sedation Plan ASA 2 Mallampati class: II. Risks, benefits, and alternatives discussed with patient. [facility] Work Phone: 1([phone]) 236-440403-26-2025 Plan of care note* Care Plan - Tierney Carey RN - 05/07/2024 10:00 AM EDT The patient's goals for the shift include The clinical goals for the shift include patient will convert to NSR post cardioversion [facility] Work Phone: 1([phone]) 581-211003-25-2025 Plan of care note* Care Plan - Crys Schmitt RN - 05/06/2024 8:52 PM EDT Problem: Pain - Adult Goal: Verbalizes/displays adequate comfort level or baseline comfort level Outcome: Progressing Problem: Safety - Adult Goal: Free from fall injury Outcome: Progressing Problem: Discharge Planning Goal: Discharge to home or other facility with appropriate resources Outcome: Progressing Problem: Chronic Conditions and Co-morbidities Goal: Patient's chronic conditions and co-morbidity symptoms are monitored and maintained or improved Outcome: Progressing Problem: Nutrition Goal: Nutrient intake appropriate for maintaining nutritional needs Outcome: Progressing Problem: Skin Goal: Promote/optimize nutrition Outcome: Progressing Goal: Promote skin healing Outcome: Progressing Problem: Fall/Injury Goal: Not fall by end of shift Outcome: Progressing Goal: Be free from injury by end of the shift Outcome: Progressing The patient's goals for the shift include rest The clinical goals for the shift include pt will remain hemodynamically stable througout shift. [facility] Work Phone: [phone]) 114-291503-25-2025 Plan of care note* Care Plan - Mayte Thorpe RN - 05/06/2024 10:08 AM EDT The clinical goals for the shift include Patient will tolerate new medications [facility] Work Phone: 1([phone] 151-228203-25-2025 Plan of care note* Care Plan - Tierney Jefferson RN - 05/06/2024 2:49 AM EDT Problem: Pain - Adult Goal: Verbalizes/displays adequate comfort level or baseline comfort level Outcome: Progressing Problem: Safety - Adult Goal: Free from fall injury Outcome: Progressing Problem: Discharge Planning Goal: Discharge to home or other facility with appropriate resources Outcome: Progressing Problem: Chronic Conditions and Co-morbidities Goal: Patient's chronic conditions and co-morbidity symptoms are monitored and maintained or improved Outcome: Progressing Problem: Nutrition Goal: Nutrient intake appropriate for maintaining nutritional needs Outcome: Progressing Problem: Skin Goal: Decreased wound size/increased tissue granulation at next dressing change Outcome: Progressing Goal: Participates in plan/prevention/treatment measures Outcome: Progressing Goal: Prevent/manage excess moisture Outcome: Progressing Goal: Prevent/minimize sheer/friction injuries Outcome: Progressing Goal: Promote/optimize nutrition Outcome: Progressing Goal: Promote skin healing Outcome: Progressing The patient's goals for the shift include The clinical goals for the shift include patient will tolerate new medication [facility]03-24-2025 Consult note* Keyur Reyez MD - 05/05/2024 11:26 AM EDT Consults Assessment/Plan Hypothyroidism new onset elevated TSH-history of amiodarone being washed out and starting Tikosyn Cardiac arrhythmias Cardiomyopathy Plan To best optimize cardiac outcomes will start patient on levothyroxine 25 mcg daily low dose and then titrate as needed in the future patient explained to take it in the morning empty stomach with water and wait at least 30-45 Reason For Consult TSH elevated with cardiac arrhythmias History Of Present Illness Cristian Chambers is a 63 y.o. male with has a past medical history of Other specified abnormalities of plasma proteins and Personal history of other specified conditions. presenting with cardiac arrhythmias were also found to have elevated TSH at this visit Patient was interviewed lying in bed comfortably his at the bedside. Persistent atrial fibrillation. Amiodarone washed out as with patient. Given his age and apical hypertrophic cardiomyopathy, prefer not to use amiodarone long- term. Will start dofetilide. Monitor as per protocol. Abnormal TSH. Consult endocrinology as thyroid disease may be attributed to persistent atrial fibrillation High risk medication Eliquis. Continue Eliquis long-term Apical hypertrophic cardiomyopathy. Underwent evaluation by HCM team in the past. No significant outflow gradient. Low scar burden by cardiac MRI. No history of syncope. No family history of sudden cardiac arrest. Negative signal averaged ECG by only 1 of 3 criteria positive for late potentials. Given underlying hypertrophic cardiomyopathy, prefer to attempt to maintain sinus rhythm. Will monitorrhythm as noted above. Past Medical History He has a past medical history of Other specified abnormalities of plasma proteins and Personal history of other specified conditions. Surgical History He has a past surgical history that includes Other surgical history (01/19/2021). Social History He reports that he has never smoked. He has never used smokeless tobacco. He reports current alcohol use. He reports that he does not use drugs. Family History Family History Problem Relation Name Age of Onset Atrial fibrillation Mother Heart disease Mother Hypertension Father Other (malignant neoplasm of prostate) Father Other (CABG) Father Diabetes Father Allergies Patient has no known allergies. Review of Systems Denies any major issues at this time rest per HPI Past Medical History: Diagnosis Date Other specified abnormalities of plasma proteins Elevated troponin Personal history of other specified conditions History of palpitations Past Surgical History: Procedure Laterality Date OTHER SURGICAL HISTORY 01/19/2021 Complete colonoscopy Social History Socioeconomic History Marital status: Spouse name: Not on file Number of children: Not on file Years of education: Not on file Highest education level: Not on file Occupational History Not on file Tobacco Use Smoking status: Never Smokeless tobacco: Never Substance and Sexual Activity Alcohol use: Yes Drug use: Never Sexual activity: Not on file Other Topics Concern Not on file Social History Narrative Not on file Social Drivers of Health Financial Resource Strain: Low Risk (05/05/2024) Overall Financial Resource Strain (CARDIA) Difficulty of Paying Living Expenses: Not hard at all Food Insecurity: No Food Insecurity (05/05/2024) Hunger Vital Sign Worried About Running Out of Food in the Last Year: Never true Ran Out of Food in the Last Year: Never true Transportation Needs: No Transportation Needs (05/05/2024) PRAPARE - Transportation Lack of Transportation (Medical): No Lack of Transportation (Non-Medical): No Physical Activity: Not on file Stress: Not on file Social Connections: Not on file Intimate Partner Violence: Not At Risk (05/05/2024) Humiliation, Afraid, Rape, and Kick questionnaire Fear of Current or Ex-Partner: No Emotionally Abused: No Physically Abused: No Sexually Abused: No Housing Stability: Low Risk (05/05/2024) Housing Stability Vital Sign Unable to Pay for Housing in the Last Year: No Number of Times Moved in the Last Year: 1 Homeless in the Last Year: No Physical Exam Awake alert in no distress lying in bed HEENT unremarkable Neck no obvious masses or tenderness Heart irregular ROS, PMH, FH/SH, surgical history and allergies have been reviewed. Last Recorded Vitals Blood pressure (!) 157/104, pulse 89, temperature 36.4 C (97.5 F), resp. rate 18, height 1.829 m (6' 0.01 ), weight 116 kg (255 lb 11.7 oz), SpO2 96%. Relevant Results Results from last 7 days Lab Units 05/05/24 0751 GLUCOSE mg/dL 111* No results found for: HGBA1C Lab Results Component Value Date TSH 5.84 (H) 05/05/2024 FREET4 0.83 05/05/2024 Jeremy Reyez MD F[facility] Office phone - [phone] Fax - [phone] Address: [id number] Address: [address] [address] 05/05/2024 6:27 PM [facility] Work Phone: 1([phone]) 187-956003-24-2025 Consult note* Keyur Reyez MD - 05/05/2024 11:26 AM EDT Consults Assessment/Plan Hypothyroidism new onset elevated TSH-history of amiodarone being washed out and starting Tikosyn Cardiac arrhythmias Cardiomyopathy Plan To best optimize cardiac outcomes will start patient on levothyroxine 25 mcg daily low dose and then titrate as needed in the future patient explained to take it in the morning empty stomach with water and wait at least 30-45 Reason For Consult TSH elevated with cardiac arrhythmias History Of Present Illness Cristian Chambers is a 63 y.o. male with has a past medical history of Other specified abnormalities of plasma proteins and Personal history of other specified conditions. presenting with cardiac arrhythmias were also found to have elevated TSH at this visit Patient was interviewed lying in bed comfortably his at the bedside. Persistent atrial fibrillation. Amiodarone washed out as with patient. Given his age and apical hypertrophic cardiomyopathy, prefer not to use amiodarone long- term. Will start dofetilide. Monitor as per protocol. Abnormal TSH. Consult endocrinology as thyroid disease may be attributed to persistent atrial fibrillation High risk medication Eliquis. Continue Eliquis long-term Apical hypertrophic cardiomyopathy. Underwent evaluation by HCM team in the past. No significant outflow gradient. Low scar burden by cardiac MRI. No history of syncope. No family history of sudden cardiac arrest. Negative signal averaged ECG by only 1 of 3 criteria positive for late potentials. Given underlying hypertrophic cardiomyopathy, prefer to attempt to maintain sinus rhythm. Will monitorrhythm as noted above. Past Medical History He has a past medical history of Other specified abnormalities of plasma proteins and Personal history of other specified conditions. Surgical History He has a past surgical history that includes Other surgical history (01/19/2021). Social History He reports that he has never smoked. He has never used smokeless tobacco. He reports current alcohol use. He reports that he does not use drugs. Family History Family History Problem Relation Name Age of Onset Atrial fibrillation Mother Heart disease Mother Hypertension Father Other (malignant neoplasm of prostate) Father Other (CABG) Father Diabetes Father Allergies Patient has no known allergies. Review of Systems Denies any major issues at this time rest per HPI Past Medical History: Diagnosis Date Other specified abnormalities of plasma proteins Elevated troponin Personal history of other specified conditions History of palpitations Past Surgical History: Procedure Laterality Date OTHER SURGICAL HISTORY 01/19/2021 Complete colonoscopy Social History Socioeconomic History Marital status: Spouse name: Not on file Number of children: Not on file Years of education: Not on file Highest education level: Not on file Occupational History Not on file Tobacco Use Smoking status: Never Smokeless tobacco: Never Substance and Sexual Activity Alcohol use: Yes Drug use: Never Sexual activity: Not on file Other Topics Concern Not on file Social History Narrative Not on file Social Drivers of Health Financial Resource Strain: Low Risk (05/05/2024) Overall Financial Resource Strain (CARDIA) Difficulty of Paying Living Expenses: Not hard at all Food Insecurity: No Food Insecurity (05/05/2024) Hunger Vital Sign Worried About Running Out of Food in the Last Year: Never true Ran Out of Food in the Last Year: Never true Transportation Needs: No Transportation Needs (05/05/2024) PRAPARE - Transportation Lack of Transportation (Medical): No Lack of Transportation (Non-Medical): No Physical Activity: Not on file Stress: Not on file Social Connections: Not on file Intimate Partner Violence: Not At Risk (05/05/2024) Humiliation, Afraid, Rape, and Kick questionnaire Fear of Current or Ex-Partner: No Emotionally Abused: No Physically Abused: No Sexually Abused: No Housing Stability: Low Risk (05/05/2024) Housing Stability Vital Sign Unable to Pay for Housing in the Last Year: No Number of Times Moved in the Last Year: 1 Homeless in the Last Year: No Physical Exam Awake alert in no distress lying in bed HEENT unremarkable Neck no obvious masses or tenderness Heart irregular ROS, PMH, FH/SH, surgical history and allergies have been reviewed. Last Recorded Vitals Blood pressure (!) 157/104, pulse 89, temperature 36.4 C (97.5 F), resp. rate 18, height 1.829 m (6' 0.01 ), weight 116 kg (255 lb 11.7 oz), SpO2 96%. Relevant Results Results from last 7 days Lab Units 05/05/24 0751 GLUCOSE mg/dL 111* No results found for: HGBA1C Lab Results Component Value Date TSH 5.84 (H) 05/05/2024 FREET4 0.83 05/05/2024 Jeremy Reyez MD [facility] Office phone - [phone] Fax - [phone] Address: [address] [facility] [address] Address: [id number] [place] [id number] 05/05/2024 6:27 PM documented in this encounterUniversity [facility] Work Phone: 1(161) 133-622903-24-2025 Plan of care note* Care Plan - Tierney Carey RN - 05/05/2024 9:14 AM EDT The patient's goals for the shift include The clinical goals for the shift include [facility] Work Phone: [phone]) 450-702603-24-2025 History and physical note* Fozia Ramos MD - 05/05/2024 8:55 AM EDT History Of Present Illness: Cristian Chambers is a 63 y.o. male presenting with atrial fibrillation. He is here for drug load. Patient denies any arrhythmia symptoms of palpitation, lightheadedness, near syncope, or syncope. Last Recorded Vitals: Vitals: 05/05/24 0813 05/05/24 0815 BP: 134/87 134/87 BP Location: Right arm Patient Position: Sitting Pulse: 75 75 Resp: 18 18 Temp: 36.4 C (97.5 F) 36.4 C (97.5 F) TempSrc: Temporal SpO2: 96% Weight: 116 kg (255 lb 11.7 oz) Height: 1.829 m (6' 0.01 ) Last Labs: CBC - 05/05/2024: 7:51 AM 6.9 16.9 204 48.1 CMP - 05/05/2024: 7:51 AM 9.9 7.4 26 --- 0.8 _ 4.5 27 36 PTT - 05/05/2024: 7:51 AM 1.3 14.5 35 No results found for: TROPHS , BNP , HGBA1C , LDLCALC , VLDL Last I/O: No intake/output data recorded. Past Cardiology Tests (Last 3 Years): EKG: ECG 12 Lead 05/05/2024 Today, Atrial fibrillation. Normal axis. Qtc 480 ms. QT 410 ms ECG 12 lead (Clinic Performed) 03/25/2024 ECG 12 Lead 02/25/2024 Echo: Echocardiogram Stress Test 04/05/2023 LVEF 70 to 75% at peak exercise Transthoracic Echo (TTE) Complete 02/14/2023 Cardiac Imaging: MR cardiac morphology and function w and wo IV contrast 03/20/2023 Hypertrophic cardiomyopathy Past Medical History: He has a past medical history of Other specified abnormalities of plasma proteins and Personal history of other specified conditions. Past Surgical History: He has a past surgical history that includes Other surgical history (01/19/2021). Social History: He reports that he has never smoked. He has never used smokeless tobacco. He reports current alcohol use. He reports that he does not use drugs. Family History: Family History Problem Relation Name Age of Onset Atrial fibrillation Mother Heart disease Mother Hypertension Father Other (malignant neoplasm of prostate) Father Other (CABG) Father Diabetes Father Allergies: Patient has no known allergies. Inpatient Medications: Outpatient Medications: Current Outpatient Medications Medication Instructions amLODIPine (NORVASC) 10 mg, oral, Daily apixaban (ELIQUIS) 5 mg, oral, 2 times daily aspirin 81 mg, Daily metoprolol succinate XL (TOPROL-XL) 50 mg, oral, 2 times daily pravastatin (PRAVACHOL) 40 mg, oral, Nightly Lab Results Component Value Date WBC 6.9 05/05/2024 HGB 16.9 05/05/2024 HCT 48.1 05/05/2024 MCV 88 05/05/2024 PLT 204 05/05/2024 Lab Results Component Value Date GLUCOSE 111 (H) 05/05/2024 CALCIUM 9.9 05/05/2024 NA 139 05/05/2024 K 4.6 05/05/2024 CO2 31 05/05/2024 CL 103 05/05/2024 BUN 18 05/05/2024 CREATININE 1.08 05/05/2024 Lab Results Component Value Date INR 1.3 (H) 05/05/2024 PROTIME 14.5 (H) 05/05/2024 Review of Systems Constitutional: Negative for decreased appetite, fever, malaise/fatigue and weight gain. Cardiovascular: Positive for irregular heartbeat and leg swelling. Negative for near-syncope, orthopnea, palpitations, paroxysmal nocturnal dyspnea and syncope. Respiratory: Negative for shortness of breath. All other systems reviewed and are negative. Physical Exam: General No acute distress. Pleasant. HEENT EOMI Dry mucous membranes Neck supple Cardiovascular Inspection: JVD: none with patient sitting at 60 degrees Precordial bulge: none Palpation: Quality: Normal Precordium: normal impulses Auscultation: Quality of auscultation: Normal Irregular rhythm S1: normal intensity S2: normal intensity Clicks: none Gallops: none Rub: none Systolic murmurs: none Diastolic murmurs: none Pulses: 2+= radial, brachial, carotid Lungs Clear, no wheezing Abdomen Bowel sounds positive Extremities No lesions No edema Neuro Oriented x 3 Normal behavior Gait not tested Assessment/Plan Persistent atrial fibrillation. Amiodarone washed out as with patient. Given his age and apical hypertrophic cardiomyopathy, prefer not to use amiodarone long- term. Will start dofetilide. Monitor as per protocol. Abnormal TSH. Consult endocrinology as thyroid disease may be attributed to persistent atrial fibrillation High risk medication Eliquis. Continue Eliquis long-term Apical hypertrophic cardiomyopathy. Underwent evaluation by HCM team in the past. No significant outflow gradient. Low scar burden by cardiac MRI. No history of syncope. No family history of sudden cardiac arrest. Negative signal averaged ECG by only 1 of 3 criteria positive for late potentials. Given underlying hypertrophic cardiomyopathy, prefer to attempt to maintain sinus rhythm. Will monitorrhythm as noted above. Counseling greater than 50% visit performed. Patient and I discussed normal rhythm, atrial fibrillation, plan for dofetilide, cardioversion later this admission if remains in atrial fibrillation, amiodarone washout, endocrinology consult, treatment options, risk, benefits, and imponderables. All questions answered in detail. Patient appreciative care Code Status: No Order I spent 90 minutes in the professional and overall care of this patient. Fozia Ramos MD [facility] Work Phone: [phone] 326-765302-11-2025 History of Present illness Narrative* Jania Clemons MA - 03/25/2024 8:00 AM EST Pt in office for appt. Signal average EKG performed ordered by Dr Ramos. Dr Ramos reviewed results with pt. documented in [facility] Work Phone: [phone] 870-690202-11-2025 History of Present illness Narrative* Fozia Ramos MD - 03/25/2024 7:15 AM EST Referred by Dr. Lutz for New Patient Visit (Patient is present to establish care . Patient was referred by Dr. Lutz for afib . /) History Of Present Illness: Cristian Chambers is a 63 y.o. male presenting with catheter care and atrial fibrillation. He is accompanied by his . Patient denies any arrhythmia symptoms of palpitation, lightheadedness, near syncope, or syncope. He notes that his PCP had heard an irregular heartbeat and that is what started his evaluation. Past Medical History: See List Past Surgical History: See List Social History: He reports that he has never smoked. He has never used smokeless tobacco. He reports current alcohol use. He reports that he does not use drugs. 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 Family History: Family History Problem Relation Name Age of Onset Atrial fibrillation Mother Heart disease Mother Hypertension Father Other (malignant neoplasm of prostate) Father Other (CABG) Father Diabetes Father Allergies: Patient has no known allergies. Outpatient Medications: Current Outpatient Medications Medication Instructions amiodarone (PACERONE) 400 mg, oral, Daily amLODIPine (NORVASC) 5 mg, oral, Daily apixaban (ELIQUIS) 5 mg, oral, 2 times daily aspirin 81 mg, Daily metoprolol succinate XL (TOPROL-XL) 50 mg, oral, 2 times daily pravastatin (PRAVACHOL) 40 mg, oral, Nightly Last Recorded Vitals: Vitals: 03/25/24 0731 BP: (!) 156/98 BP Location: Right arm Patient Position: Sitting Pulse: 79 Weight: 116 kg (255 lb) Height: 1.829 m (6') Review of Systems Cardiovascular: Negative for chest pain, dyspnea on exertion and palpitations. All other systems reviewed and are negative. Physical Exam: Constitutional: General: Awake. Appearance: Normal and healthy appearance. Well-developed and not in distress. Obese. Neck: Vascular: No JVR. JVD normal. Pulmonary: Effort: Pulmonary effort is normal. Breath sounds: Normal breath sounds. No wheezing. No rhonchi. No rales. Chest: Chest wall: Not tender to palpatation. Cardiovascular: PMI at left midclavicular line. Normal rate. Irregularly irregular rhythm. Normal S1. Normal S2. Murmurs: There is no murmur. No gallop. No click. No rub. Comments: Atrial fibrillation Pulses: Intact distal pulses. Edema: Peripheral edema absent. Abdominal: Tenderness: There is no abdominal tenderness. Musculoskeletal: Normal range of motion. General: No tenderness. Skin: General: Skin is warm and dry. Neurological: General: No focal deficit present. Mental Status: Alert and oriented to person, place and time. Last Labs: CBC - No results found for: WBC , HGB , HCT , MCV , PLT CMP - No results found for: CALCIUM , PHOS , PROT , ALBUMIN , AST , ALT , ALKPHOS , BILITOT LIPID PANEL - No results found for: CHOL , TRIG , HDL , CHHDL , LDLF , VLDL , NHDL RENAL FUNCTION PANEL - No results found for: GLUCOSE , NA , K , CL , CO2 , ANIONGAP , BUN , CREATININE , GFRMALE , CALCIUM , PHOS , ALBUMIN No results found for: BNP , HGBA1C Last Cardiology Tests: ECG: ECG 12 Lead 02/25/2024 Today. Atrial fibrillation. Controlled ventricular rate. Normal axis. Corrected QT interval 490 ms. Signal average EKG performed in office today. 1 of 3 criteria positive with QRS duration (filter. See scanned Echo: Echocardiogram Stress Test 04/05/2023 LVEF 70 to 75% at peak exercise Cardiac Imaging: MR cardiac morphology and function w and wo IV contrast 03/20/2023 Hypertrophic cardiomyopathy Lab review: I have personally reviewed the laboratory result(s) see above Assessment/Plan Diagnoses and all orders for this visit: Atrial fibrillation, unspecified type (Multi) Cardiomyopathy, hypertrophic (Multi) Essential hypertension Mixed hyperlipidemia LVH (left ventricular hypertrophy) Myocardial infarction, unspecified AR type, unspecified artery (Multi) Obesity (BMI 30.0-34.9) Never smoked tobacco Encounter for medication review and counseling Encounter to discuss treatment options Encounter to establish care with new doctor Jasmin Richards RN Apical hypertrophic cardiomyopathy. Underwent evaluation by HCM team. No significant outflow gradient procedure. Low scar burden by cardiac MRI. No history of syncope. No family history of sudden cardiac arrest. Obtain signal average ECG today. Negative by only 1 of 3 criteria positive for late potentials. Persistent atrial fibrillation. Shared decision making. Discussed ECG, heart diagrams, posters in office. Treatment options, risk, benefits, and imponderables reviewed. Given hypertrophic cardiomyopathy, would plan for drug load to attempt to maintain sinus rhythm. All questions answered in detail.Will prefer to avoid long-term amiodarone use. Will discontinue amiodarone and allow it to washout.Continue Eliquis. Once uninterrupted Eliquis for 4 weeks and after washout of amiodarone, will planfor dofetilide load and cardioversion during that admission. I did discuss this with both Dr. Sousa and Dr. Lutz. Plan for drug load at [place]. High risk medication Eliquis. Samples given. See orders. Hypertension, not controlled. Will increase amlodipine to 10 mg daily. New prescription sent. Further follow-up with PCP and cardiology. Family history of atrial fibrillation noted. Overweight. [place] [employer] recommendations for exercise and diet reviewed Counseling greater than 50% of the visit performed. The patient, , and I discussed atrial fibrillation, sinus rhythm, hypertrophic cardiomyopathy, shared decision making, treatment options, risk,benefits, imponderables, informed consent, behavior modification, and follow-up. Change all questions answered. Patient and appreciative care documented in this [facility] Work Phone: [phone] Instructions* Patient Instructions* Jasmin Richards RN - 03/25/2024 7:15 AM EST Images from the original note were not included. Pre-Procedure Patient Information You have been scheduled for: inpatient drug load and cardioversion At: [facility] With: Dr. Fozia Ramos Date of procedure: 1. Please have transportation to and from the hospital. While you should plan for same-day discharge there is a possibility you will need to stay overnight. 2. You will receive a call from the hospital 24 - 72 hours before your procedure providing you withfasting instructions, procedure location detail, and time of arrival. If you have not received a call from the hospital by 6 pm the day before your scheduled procedure, please call [phone]. 3. Please bring a current list of medications with you to the hospital. 4. Medications to hold: NONE - Otherwise, you may continue your medications in the morning with sips of water. 5. Nothing to eat after midnight before the procedure. OK to take morning medications, with above exceptions, the day of the procedure with a small sip of water. 6. Please bring to our attention if you have any contrast, latex or metal allergies. 7. Please have your blood work as instructed completed at least a day before your procedure. 8. If you have any questions, please contact the office at [phone]. Continue same medications/treatment. Patient educated on proper medication use. Patient educated on risk factor modification. Please bring any lab results from other providers/physicians to your next appointment. Please bring all medicines, vitamins, and herbal supplements with you when you come to the office. Prescriptions will not be filled unless you are compliant with your follow up appointments or have a follow up appointment scheduled as per instruction of your physician. Refills should be requested at the time of your visit. INCREASE amlodipine to 10mg daily SCHEDULED inpatient drug load with dofetilide. Obtain labs 1 week prior to procedure. Orders are inthe system. SCHEDULE cardioversion. STOP amiodarone Follow up with Dr. Ramos after procedures. IJASMIN RN, AM SCRIBING FOR AND IN THE PRESENCE OF DR. FOZIA RAMOS MD, FACC, FACP, FHRS documented in this [facility] Work Phone: [phone] History of Present illness Narrative* Nomi Lutz, - 03/13/2024 9:00 AM EST Subjective Cristian A Weisenberger is a 63 y.o. male Chief Complaint Annual Exam 63-year-old gentleman with apical hypertrophic cardiomyopathy returns at a early time point with new diagnosis of atrial fibrillation. He was in his primary care physician's office, Dr. Everett Fuentes, whonoticed irregular heart rhythm, performed ECG, diagnosing atrial fibrillation and placed him on Eliquis and scheduled him for follow-up with myself. Subsequent Holter monitoring performed this month confirms chronic persistent atrial fibrillation (new diagnosis). Last Holter monitor within the lastyear revealed normal sinus rhythm. 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 Briefly, discussed atrial fibrillation and management with the patient and need for lifelong anticoagulation as well as medications and possible ablation therapies in the future. On today's exam he has a regular heart rhythm that is elevated around 90-100 beats a minute. Will initiate amiodarone initially at 400 mg daily, he is EP consult with Dr. Ramos next week, the remainder of his A-fib management can transpire with electrophysiology and including medication versus ablation intervention. Will follow-up again in 4 months Review of Systems Respiratory: Positive for shortness of breath. All other systems reviewed and are negative. Vitals: 03/13/24 0906 BP: 120/82 BP Location: Left arm Patient Position: Sitting Pulse: 80 Weight: 117 kg (258 lb) Height: 1.829 m (6') Objective Physical Exam Constitutional: Appearance: Normal appearance. HENT: Nose: Nose normal. Neck: Vascular: No carotid bruit. Cardiovascular: Rate and Rhythm: Normal rate. Pulses: Normal pulses. Heart sounds: Normal heart sounds. Pulmonary: Effort: Pulmonary effort is normal. Abdominal: General: Bowel sounds are normal. Palpations: Abdomen is soft. Musculoskeletal: General: Normal range of motion. Cervical back: Normal range of motion. Right lower leg: No edema. Left lower leg: No edema. Skin: General: Skin is warm and dry. Neurological: General: No focal deficit present. Mental Status: He is alert. Psychiatric: Mood and Affect: Mood normal. Behavior: Behavior normal. Thought Content: Thought content normal. Judgment: Judgment normal. Allergies Patient has no known allergies. Current Medications Current Outpatient Medications: amLODIPine (Norvasc) 5 mg tablet, Take 1 tablet (5 mg) by mouth once daily., Disp: 90 tablet, Rfl: 3 apixaban (Eliquis) 5 mg tablet, Take 1 tablet (5 mg) by mouth 2 times a day., Disp: , Rfl: aspirin 81 mg EC tablet, Take 1 tablet (81 mg) by mouth once daily., Disp: , Rfl: metoprolol succinate XL (Toprol-XL) 50 mg 24 hr tablet, TAKE ONE TABLET BY MOUTH TWICE A DAY, Disp:180 tablet, Rfl: 3 pravastatin (Pravachol) 40 mg tablet, Take 1 tablet (40 mg) by mouth once daily at bedtime., Disp: 90 tablet, Rfl: 3 Assessment/Plan 1. Paroxysmal atrial fibrillation (Multi) 2. LVH (left ventricular hypertrophy) Follow Up In Cardiology 3. Essential hypertension Follow Up In Cardiology 4. Mixed hyperlipidemia Follow Up In Cardiology 5. Cardiomyopathy, hypertrophic (Multi) Follow Up In Cardiology 6. Obesity (BMI 30.0-34.9) 7. Never smoked tobacco Scribe Attestation By signing my name below, I, Kezia Irby LPN attest that this documentation has been prepared under the direction and in the presence of Sammi Lutz DO. Provider Attestation - Scribe documentation All medical record entries made by the Scribe were at my direction and personally dictated by me. Ihave reviewed the chart and agree that the record accurately reflects my personal performance of the history, physical exam, discussion and plan. documented in this [facility] Work Phone: [phone]) 817-846401-30-2025 Instructions* Patient Instructions* Angy Gtz LPN - 03/13/2024 9:00 AM EST Please bring all medicines, vitamins, and herbal supplements with you when you come to the office. Prescriptions will not be filled unless you are compliant with your follow up appointments or have a follow up appointment scheduled as per instruction of your physician. Refills should be requested at the time of your visit. BMI was above normal measurement. Current weight: 117 kg (258 lb) Weight change since last visit (-) denotes wt loss -7 lbs Weight loss needed to achieve BMI 25: 74.1 Lbs Weight loss needed to achieve BMI 30: 37.3 Lbs Provided instructions on dietary changes Provided instructions on exercise. [facility] Work Phone: [phone] 944-819301-13-2025 History of Present illness Narrative* Сергей Corea MA - 02/25/2024 2:30 PM EST Patient here for EKG visit ordered by Dr. Lutz due to New onset of Afib. Dr. Herrera in suite to review EKG prior to discharge. Patient here due to Aflutters . Medication list Updated verbally. no cardiac complaints. To Dr. Lutz to read Vitals: 02/25/24 1601 BP: (!) 142/100 BP Location: Left arm Patient Position: Sitting Pulse: (!) 119 Weight: 120 kg (265 lb) Height: 1.829 m (6') documented in this [facility]UnTri[facility] Work Phone: [phone] 151-170708-12-2024 History of Present illness Narrative* Ana Sousa DO - 09/24/2023 3:40 PM EDT Images from the original note were not included. [facility] Primary Care Physician: Julio Fuentes DO Referring Provider/Supervisor [employer] Assembly: [place] ([facility]) Date of Visit: 09/24/2023 3:40 PM EDT Location of visit: [address] HPI: Mr. Chambers is a 63M with a PMHx sig for HTN, apical hypertrophic cardiomyopathy, and dyslipidemia who returns to the Advanced Heart Failure clinic for ongoing evaluation and management. Interval hx: His case was presented to the HCM board. It was recommended to continue his BB for now with no other adjustments at this time. No indication for an ICD at this time. Currently denies chest pain, palpitations, shortness of breath, dyspnea on exertion, orthopnea, PND. No edema noted in BLE. Patient denies headaches, dizziness or recent falls. Recent Hospitalizations: None PMHx: HTN, apical hypertrophic cardiomyopathy, dyslipidemia SocHx: Lives in [place] Denies tobacco/rare etOH/denies illicits FamHx: No HCM Mother with AF and aortic aneurysm Current Outpatient Medications Medication Sig Dispense Refill amLODIPine (Norvasc) 5 mg tablet Take 1 tablet (5 mg) by mouth once daily. 90 tablet 3 aspirin 81 mg EC tablet Take 1 tablet (81 mg) by mouth once daily. metoprolol succinate XL (Toprol-XL) 50 mg 24 hr tablet TAKE ONE TABLET BY MOUTH TWICE A DAY 180 tablet 3 pravastatin (Pravachol) 40 mg tablet Take 1 tablet (40 mg) by mouth once daily at bedtime. 90 tablet 3 sildenafil (Viagra) 25 mg tablet TAKE ONE TABLET BY MOUTH ONCE DAILY NEEDED FOR ED FOR 30 DAYS sildenafil (Viagra) 50 mg tablet Take 1 tablet (50 mg) by mouth if needed. No current facility-administered medications for this visit. No Known Allergies Visit Vitals BP (!) 159/106 (BP Location: Right arm, Patient Position: Sitting) Pulse 78 Ht 1.803 m (5' 11 ) Wt 120 kg (264 lb) SpO2 98% BMI 36.82 kg/m Smoking Status Never BSA 2.45 m Physical Exam: On exam Mr. Chambers appears his stated age, is alert and oriented x3, and in no acute distress. His sclera are anicteric and his oropharynx has moist mucous membranes. His neck is supple and without thyromegaly. The JVP is ~5 cm of water above the right atrium. His cardiac exam has regular rhythm, normal S1, S2. No S3/4. There are no provocable murmurs. His lungs are clear to auscultation bilaterally and there is no dullness to percussion. His abdomen is soft, nontender with normoactive bowel sounds. There is no HJR. The extremities are warm and without edema. The skin is dry. There is no rash present. The distal pulses are 2+ in all four extremities. His mood and affect are appropriate for todays encounter. Cardiac Labs/Diagnostics: Exercise stress echo (04/05/23): 1. The resting ejection fraction was estimated at 60 to 65% with a peak exercise ejection fraction estimated at 70 to 75%. 2. Adequate level of stress achieved. 3. No clinical or echocardiographic evidence for ischemia at a maximal workload. 4. No significant intracavitary gradient with no change with exercise. 5. The blunted heart rate diminshes the sensitivity of this test. 6. This exercise test is indeterminate because of an abnormal baseline ECG. ECG (03/26/23): Sinus bradycardia (HR 54), LVH with repol vs apical HCM pattern cMRI (03/20/23): 1. Left ventricle is normal in size (LVEDVi = 83 mL/m2) with hyperdynamic systolic function (LVEF =76%). No focal wall motion abnormalities. 2. Asymmetric left ventricular hypertrophy involving the mid septum and apical segments with wall thickness measuring up to 2.1 cm. In addition, there are patchy areas of mid myocardial delayed enhancement involving these segments with approximate scar size of 33%. Overall findings are most suggestive of a hypertrophic cardiomyopathy. No evidence of prior infarction. 3. No evidence of LVOT gradient or systolic anterior motion of the mitral valve. 4. Increased T1 mapping times within the mid to apical segments, consistent with diffuse interstitial fibrosis. 5. Moderate mitral regurgitation (regurgitant fraction = 32%) and mild aortic regurgitation (regurgitant fraction = 9%). 6. Dilated left atrium. 7. Mildly dilated ascending aorta measuring up to 4.0 cm. Recommend continued follow-up as per clinical guidelines. 8. Mildly dilated main pulmonary artery which can be seen in the setting of pulmonary hypertension. 14D Holter 03/13/23) All tracings demonstrated normal sinus rhythm with a heart rate that ranged between 41 bpm and 66 bpm. Isolated PACs and isolated PVCs were noted. There were 2 events of atrial tachycardia at a rate of 100 bpm 1 event was for 3 beats and the other one was for 5 beats , none were symptomatic Echo (02/14/23): 1. Left ventricular systolic function is hyperdynamic with a 75-80% estimated ejection fraction. 2. Spectral Doppler shows an impaired relaxation pattern of left ventricular diastolic filling. 3. There is evidence of asymmetrical septal hypertrophy. Following Optison infusion apical imaging appears a classic for apical hypertrophic cardiomyopathy. Mild 16 mmHg mid LV dynamic gradient was seen. 4. Trace to mild mitral valve regurgitation. 5. Slightly elevated RVSP. 6. Trace to mild tricuspid regurgitation. 7. When compared to previous study. The use of Optison seems to define LV architecture better and appears to be highly suggestive of apical hypertrophic cardiomyopathy. Consider cardiac MRI to confirm the diagnosis. Cardiac cath (08/06/18): Normal coronaries Apical HCM without LVOT obstruction Impression/Plan: Mr. Chambers is a 63M with a PMHx sig for HTN, apical hypertrophic cardiomyopathy, and dyslipidemia who returns to the Advanced Heart Failure clinic for ongoing evaluation and management. 1) Apical hypertrophic cardiomyopathy Diagnosed 5 years ago, currently on beta diogenes with a low resting HR (40-60s). Prior imaging noted to have apical HCM without a significant LVOT gradient or APOLLO. No history of syncope or family history of SCD. Case discussed at HCM Board. Scar burden on cMRI felt to be less than previously reported. No need for an ICD at the current time based on all of the above. Recommended to continue his current beta diogenes and monitor. -c/w metoprolol succinate 50 mg bid -he will monitor his BP at home and notify us if his DBP is consistently >90 F/U: 6 months at /[facility], Thank you for referring Mr. Chambers to the Advanced Heart Failure Clinic. Please let me know if you have any questions. Ana Sousa DO Section of Advanced Heart Failure and Cardiac Transplantation Division of Cardiovascular Medicine [facility] [place] [facility] Work Phone: 1(464) 138-527008-12-2024 Instructions* Patient Instructions* Ana oSusa DO - 09/24/2023 3:40 PM EDT [facility] has a Hypertrophic Cardiomyopathy Center that will assist you with scheduling cardiac testing, medications, and future appointments. They are also available to answer any questions/concerns you may have. To reach them, please call [phone] (Cara, RN). 1) Continue your current medications 2) Watch your blood pressure; if your bottom number remains greater than 90, please let us know as we will adjust your medications 3) Follow up in 1 year at /[facility] documented [facility] Work Phone: 1(144) 383-443302-09-2024 Evaluation note* Encounter Date Diagnosis Assessment Notes Treatment Notes Treatment Clinical Notes Mar, Thrombocytopenia (ICD-10 - D69.6 ) Mar,nemia (ICD-10 - D64.9) [employer] Other 01-26-2024 History of Present illness Narrative* Nomi Lutz, - 03/09/2023 1:50 PM EST Subjective Cristian Chambers is a 62 y.o. male Chief Complaint Annual Exam 62-year-old gentleman returns for follow-up he is doing well he has no cardiovascular events or complaints or shortness of breath. He has been diagnosed with asymmetric septal and apical hypertrophiccardiomyopathy over the past 2 years. He is to see Dr. Ana Sousa on March 20 and scheduled for MRI. He has had no syncope or arrhythmias. He has no precocious family history of sudden or hypertrophic cardiomyopathies (see details from my previous notes.) Cardiac catheterization 2 years ago revealed normal coronary arteries with spade shaped ventricle which initiated the workup for his HCM. Blood pressure is under much better control on metoprolol and amlodipine. Recommendations, initiate consultation with HCM clinic, obtain 14-day event monitor, follow-up in 6months with nurse practitioner. Discussed necessity and reasoning for MRI as well as continued rhythm surveillance. Review of Systems All other systems reviewed and are negative. Visit Vitals BP 138/86 (BP Location: Left arm, Patient Position: Sitting) Pulse 60 Ht 1.829 m (6') Wt 117 kg (258 lb) BMI 34.99 kg/m Smoking Status Never BSA 2.44 m Objective Physical Exam Constitutional: Appearance: Normal appearance. He is normal weight. HENT: Nose: Nose normal. Neck: Vascular: No carotid bruit. Cardiovascular: Rate and Rhythm: Normal rate. Pulses: Normal pulses. Heart sounds: Normal heart sounds. Pulmonary: Effort: Pulmonary effort is normal. Abdominal: General: Bowel sounds are normal. Palpations: Abdomen is soft. Genitourinary: Rectum: Normal. Musculoskeletal: General: Normal range of motion. Cervical back: Normal range of motion. Right lower leg: No edema. Left lower leg: No edema. Skin: General: Skin is warm and dry. Neurological: General: No focal deficit present. Mental Status: He is alert. Psychiatric: Mood and Affect: Mood normal. Behavior: Behavior normal. Thought Content: Thought content normal. Judgment: Judgment normal. Current Medications Current Outpatient Medications: amLODIPine (Norvasc) 5 mg tablet, Take 1 tablet (5 mg) by mouth once daily., Disp: , Rfl: aspirin 81 mg EC tablet, Take 1 tablet (81 mg) by mouth once daily., Disp: , Rfl: LORazepam (Ativan) 1 mg tablet, Patient should take 1 tablet one hour prior to MRI & may repeatonce 15 minutes before MRI., Disp: 2 tablet, Rfl: 0 metoprolol succinate XL (Toprol-XL) 50 mg 24 hr tablet, Take 1 tablet (50 mg) by mouth 2 times a day., Disp: , Rfl: pravastatin (Pravachol) 40 mg tablet, Take 1 tablet (40 mg) by mouth once daily at bedtime., Disp: , Rfl: sildenafil (Viagra) 50 mg tablet, Take 1 tablet (50 mg) by mouth if needed., Disp: , Rfl: Assessment/Plan 1. LVH (left ventricular hypertrophy) 2. Essential hypertension 3. Mixed hyperlipidemia 4. Cardiomyopathy, hypertrophic (CMS/HCC) 5. Lightheadedness Scribe Attestation By signing my name below, IAngy LPN , [employer] attest that this documentation has been prepared under the direction and in the presence of Sammi Lutz DO. documented in this [facility] Work Phone: 1(292) 795-596901-26-2024 Instructions* Patient Instructions* Corby Junior MA - 03/09/2023 1:50 PM EST Please bring all medicines, vitamins, and herbal supplements with you when you come to the office. Prescriptions will not be filled unless you are compliant with your follow up appointments or have a follow up appointment scheduled as per instruction of your physician. Refills should be requested at the time of your visit. documented in this [facility] Work Phone: 1([phone]) 290-910801-05-2024 Evaluation note* Encounter Date Diagnosis Assessment Notes Treatment Notes Treatment Clinical Notes Feb, COVID-19 (ICD-10 - U07.1) Self isolate at home. - Cannot work - avoid contact with others - avoid pets - wipe counters, door knobs if touched - if can't avoid leaving home, must wear mask to protect others - need to stay isolated for 10 days from onset of symptoms - to discontinue isolation must be 5 days AND must be without fever for 24 hours AND symptoms must be improving. Always wear a mask in public places for complete 10 days Instructed to use Robitussin or Mucinex for cough, saline or Flonase NS for congestion, Tylenol forpain and fever. Feb,Hypertrophic nonobstructive cardiomyopathy (ICD-10 - I42.2)Places him at higher risk for prolonged, serious infection. Recommend Paxlovid but he declines [employer] Other 10-04-2023 Evaluation note* Encounter Date Diagnosis Assessment Notes Treatment Notes Treatment Clinical Notes Nov, Wellness examination (ICD-10 - Z 00.00) Healthy diet and exercise. Reviewed age-appropriate preventive testing recommended. Nov,Elevated cholesterol (ICD-10 - E78.00)Instructed on diet and exercise with continued statin therapy.Discussed the beneficial effects of lo wering cholesterol in reducing the risk for cerebrovascular and cardiovascular disease. Nov,rimary hypertension (ICD-10 - I10)This patient is instructed to consume a healthy, low-fat, low-salt diet. They are also encouraged to continue exercise to achieve/maintain a normal BMI. Nov,Hypertrophic nonobstructive cardiomyopathy (ICD-10 - I42.2)Control BP, exercise, weight loss. Nov,Screening PSA (prostate specific antigen) (ICD-10 - Z12.5)Yearly ZACKARY and PSA Nov,3Drug-induced erectile dysfunction (ICD-10 - N52.2) [employer] Other Evaluation noteNo assessment information available [facility] Work Phone: Evaluation note* Diagnosis Hypertrophic cardiomyopathy (CMS/HCC) Other primary cardiomyopathies documented in this encounter [facility] Work Phone: Evaluation note* Diagnosis LVH (left ventricular hypertrophy) Cardiomegaly Essential hypertension Unspecified essential hypertension Mixed hyperlipidemia Cardiomyopathy, hypertrophic (CMS/HCC) Lightheadedness Dizziness and giddiness documented in this encounter [facility] Work Phone: Evaluation note* Diagnosis LVH (left ventricular hypertrophy) Cardiomegaly Abnormal echocardiogram Nonspecific (abnormal) findings on radiological and other examination of other intrathoracic organs documented in this encounter [facility] Work Phone: Evaluation note* Diagnosis Cardiomyopathy, hypertrophic (CMS/HCC) LVH (left ventricular hypertrophy) Cardiomegaly documented in this encounter [facility] Work Phone: Evaluation note* Diagnosis Hypertrophic cardiomyopathy (Multi)- Primary Other primary cardiomyopathies documented in this encounter [facility] Work Phone: Evaluation note* Diagnosis Atrial fibrillation, unspecified type (Multi) documented in this encounter [facility] Work Phone: Evaluation note* Diagnosis Paroxysmal atrial fibrillation (Multi) Atrial fibrillation LVH (left ventricular hypertrophy) Cardiomegaly Essential hypertension Unspecified essential hypertension Mixed hyperlipidemia Cardiomyopathy, hypertrophic (Multi) Obesity (BMI 30.0-34.9) Never smoked tobacco documented in this encounter [facility] Work Phone: Evaluation note* Diagnosis Atrial fibrillation, unspecified type (Multi)- Primary Cardiomyopathy, hypertrophic (Multi) Essential hypertension Unspecified essential hypertension Mixed hyperlipidemia LVH (left ventricular hypertrophy) Cardiomegaly Myocardial infarction, unspecified AR type, unspecified artery (Multi) Obesity (BMI 30.0-34.9) Never smoked tobacco Encounter for medication review and counseling Encounter to discuss treatment options Encounter to establish care with new doctor Paroxysmal atrial fibrillation (Multi) Atrial fibrillation documented in this encounter [facility] Work Phone: Evaluation note* Diagnosis Atrial fibrillation, unspecified type (Multi) Atrial fibrillation, persistent (Multi)- Primary documented in this encounter [facility] Work Phone: Evaluation note* Diagnosis Atrial fibrillation, persistent (Multi)- Primary Atrial fibrillation, persistent (Multi) Hypothyroidism Unspecified hypothyroidism documented in this encounter [facility] Work Phone: Evaluation note* Diagnosis Melanocytic nevus of face, other location- Primary Melanocytic nevus of trunk Benign neoplasm of skin of trunk, except scrotum Melanocytic nevus of upper extremity, unspecified laterality Seborrheic keratosis Lentigines Capillary angioma Nevus, non-neoplastic Inflamed seborrheic keratosis [facility] Diagnosis Atrial fibrillation, persistent (Multi)- Primary High risk medication use Cardiomyopathy, hypertrophic (Multi) Essential hypertension Unspecified essential hypertension LVH (left ventricular hypertrophy) Cardiomegaly Mixed hyperlipidemia BMI 36.0-36.9,adult Encounter for medication review and counseling Encounter to discuss treatment options Never smoked tobacco documented in this encounter [facility] Work Phone: Evaluation note* Diagnosis Paroxysmal atrial fibrillation (Multi) Atrial fibrillation Cardiomyopathy, hypertrophic (Multi) High risk medication use BMI 35.0-35.9,adult Never smoked tobacco documented in this encounter [facility] Work Phone: Evaluation note* Diagnosis Ingrowing nail, left great toe- Primary Ingrowing nail Abscess of great toenail of left foot Abscess of great toenail of right foot Ingrowing nail, right great toe Ingrowing nail Tinea unguium Dermatophytosis of nail [facility] Diagnosis Hypertrophic cardiomyopathy (Multi)- Primary Other primary cardiomyopathies documented in this encounter [facility] Work Phone: Evaluation note* Diagnosis Abscess of great toenail of left foot- Primary Abscess of great toenail of right foot [facility] this [facility] Narrative - Reported* Type Description Date Medical History Primary hypertension Medical HistoryHypertrophic cardiomyopathyMedical HistoryElevated cholesterol Surgical [id number] HistorySEE SURGICAL HX [facility] [employer] Other History of Present illness Narrative* The patient presents for follow-up of essential hypertension. The patient states he has been doing well with his blood pressure control since the last visit. He has no comorbid illnesses. * Symptoms: denies impaired vision, denies dyspnea, denies chest pain, denies intermittent leg claudication and denies lower extremity edema. Associated symptoms include no headache. * Home monitoring: The patient is not checking blood pressure at home. * Medications: the patient is adherent with his medication regimen. He denies medication side effects. [employer] DO Work Phone: History of Present illness Narrative* The patient presents for follow-up of essential hypertension. The patient states he has been stablewith his blood pressure control since the last visit. Comorbid Illnesses: left ventricular hypertrophy. * Symptoms: denies impaired vision, denies dyspnea, denies chest pain, denies intermittent leg claudication and denies lower extremity edema. Associated symptoms include no headache. * Home monitoring: The patient checks his blood pressure regularly. Blood pressure control has been poor. * Medications: the patient is adherent with his medication regimen. He denies medication side effects. [employer] Work Phone: History of Present illness Narrative* The patient presents for follow-up of essential hypertension. He has no comorbid illnesses. * Symptoms: denies impaired vision, denies dyspnea, denies chest pain, denies intermittent leg claudication and denies lower extremity edema. Associated symptoms include no headache. * Home monitoring: The patient checks his blood pressure sporadically. Blood pressure control has been good. * Medications: the patient is adherent with his medication regimen. He denies medication side effects. [employer] Work Phone: Reason for referral (narrative)No reason for referral information availableRegency Hospital Company Work Phone: Reason for visit Narrative* Auth/CertSpecialty Diagnoses / ProceduresReferred By ContactReferred To Contact Diagnoses Atrial fibrillation, persistent (Multi) Procedures [facility] SF/LOW MDM 40 MINUTES [facility] HIGH MDM 75 MINUTES Fozia Ramos MD [address] [facility] [address] [place] [address] Phone: tel: fax: [facility]iac Intensive [facility] [address] [place] [address] Phone: tel: Referral IDStatusReasonStart DateExpiration DateVisits RequestedVisits [id number] [facility] Work Phone: Summary Purpose Family History Unknown Family Member Name Dates Details FH: CABG (coronary artery by pass surgery): Father(V17.3, Z82.49) Status:ActiveFH: diabetes mellitus: Father(V18.0, Z83.3) Status:ActiveFamily history of hypertension: Father(V17.49, Z82.49) Status:ActiveFamily history of malignant neoplasm of prostate: Father(V16.42, Z80.42) Status:ActiveFamily history of atrial fibrillation: Mother(V17.49, Z82.49) Status:ActiveHeart problem: Mother Status:Active Unknown Family Member Name Dates Details Heart problem: Mother Status:ActiveFamily history of atrial fibrillation: Mother(V17.49, Z82.49) Status:ActiveFamily history of malignant neoplasm of prostate: Father(V16.42, Z80.42) Status:ActiveFamily history of hypertension: Father(V17.49, Z82.49) Status:ActiveFH: diabetes mellitus: Father(V18.0, Z83.3) Status:ActiveFH: CABG (coronary artery bypass surgery): Father(V17.3, Z82.49) Status:Active Unknown Family Member Name Dates Details FH: CABG (coronary artery by pass surgery): Father(V17.3, Z82.49) Status:ActiveFH: diabetes mellitus: Father(V18.0, Z83.3) Status:ActiveFamily history of hypertension: Father(V17.49, Z82.49) Status:ActiveFamily history of malignant neoplasm of prostate: Father(V16.42, Z80.42) Status:ActiveFamily history of atrial fibrillation: Mother(V17.49, Z82.49) Status:ActiveHeart problem: Mother Status:Active Unknown Family Member Name Dates Details Heart problem: Mother Status:ActiveFamily history of atrial fibrillation: Mother(V17.49, Z82.49) Status:ActiveFamily history of malignant neoplasm of prostate: Father(V16.42, Z80.42) Status:ActiveFamily history of hypertension: Father(V17.49, Z82.49) Status:ActiveFH: diabetes mellitus: Father(V18.0, Z83.3) Status:ActiveFH: CABG (coronary artery bypass surgery): Father(V17.3, Z82.49) Status:Active Unknown Family Member Name Dates Details FH: CABG (coronary artery by pass surgery): Father(V17.3, Z82.49) Status:ActiveFH: diabetes mellitus: Father(V18.0, Z83.3) Status:ActiveFamily history of hypertension: Father(V17.49, Z82.49) Status:ActiveFamily history of malignant neoplasm of prostate: Father(V16.42, Z80.42) Status:ActiveFamily history of atrial fibrillation: Mother(V17.49, Z82.49) Status:ActiveHeart problem: Mother Status:Active Unknown Family Member Name Dates Details FH: CABG (coronary artery by pass surgery): Father(V17.3, Z82.49) Status:ActiveFH: diabetes mellitus: Father(V18.0, Z83.3) Status:ActiveFamily history of hypertension: Father(V17.49, Z82.49) Status:ActiveFamily history of malignant neoplasm of prostate: Father(V16.42, Z80.42) Status:ActiveFamily history of atrial fibrillation: Mother(V17.49, Z82.49) Status:ActiveHeart problem: Mother Status:Active Unknown Family Member Name Dates Details FH: CABG (coronary artery by pass surgery): Father(V17.3, Z82.49) Status:ActiveFH: diabetes mellitus: Father(V18.0, Z83.3) Status:ActiveFamily history of hypertension: Father(V17.49, Z82.49) Status:ActiveFamily history of malignant neoplasm of prostate: Father(V16.42, Z80.42) Status:ActiveFamily history of atrial fibrillation: Mother(V17.49, Z82.49) Status:ActiveHeart problem: Mother Status:Active Unknown Family Member Name Dates Details FH: CABG (coronary artery by pass surgery): Father(V17.3, Z82.49) Status:ActiveFH: diabetes mellitus: Father(V18.0, Z83.3) Status:ActiveFamily history of hypertension: Father(V17.49, Z82.49) Status:ActiveFamily history of malignant neoplasm of prostate: Father(V16.42, Z80.42) Status:ActiveFamily history of atrial fibrillation: Mother(V17.49, Z82.49) Status:ActiveHeart problem: Mother Status:Active Unknown Family Member Name Dates Details FH: CABG (coronary artery by pass surgery): Father(V17.3, Z82.49) Status:ActiveFH: diabetes mellitus: Father(V18.0, Z83.3) Status:ActiveFamily history of hypertension: Father(V17.49, Z82.49) Status:ActiveFamily history of malignant neoplasm of prostate: Father(V16.42, Z80.42) Status:ActiveFamily history of atrial fibrillation: Mother(V17.49, Z82.49) Status:ActiveHeart problem: Mother Status:Active Unknown Family Member Name Dates Details FH: CABG (coronary artery by pass surgery): Father(V17.3, Z82.49) Status:ActiveFH: diabetes mellitus: Father(V18.0, Z83.3) Status:ActiveFamily history of hypertension: Father(V17.49, Z82.49) Status:ActiveFamily history of malignant neoplasm of prostate: Father(V16.42, Z80.42) Status:ActiveFamily history of atrial fibrillation: Mother(V17.49, Z82.49) Status:ActiveHeart problem: Mother Status:Active Unknown Family Member Name Dates Details FH: CABG (coronary artery by pass surgery): Father(V17.3, Z82.49) Status:ActiveFH: diabetes mellitus: Father(V18.0, Z83.3) Status:ActiveFamily history of hypertension: Father(V17.49, Z82.49) Status:ActiveFamily history of malignant neoplasm of prostate: Father(V16.42, Z80.42) Status:ActiveFamily history of atrial fibrillation: Mother(V17.49, Z82.49) Status:ActiveHeart problem: Mother Status:Active Relationship Condition Age at Onset Recorded Date/T yohana father History of coronary artery bypass surgery Unknown Relationship Condition Age at Onset Recorded Date/T yohana father History of coronary artery bypass surgery Unknown fatherDeceasedUnknownHeart diseaseUnknown Advance Directives Advance Directive Response Recorded Date/ Time Advance Directives No August 06 12:02am Date ActivatedDate InactivatedComments05/05/2024 9:08 AMQuestionAnswerComments Plan of Care:* Code Status Discussion Completed Decision Maker:* Patient Date ActivatedDate InactivatedComments05/05/2024 9:08 AMQuestionAnswerComments Plan of Care:* Code Status Discussion Completed Decision Maker:* Patient Advance Directive Response Recorded Date/ Time Advance Directives No August 06 1:02am Chief Complaint * CRISTIAN CHAMBERS is being seen for an annual follow-up of. * Patient is a healthy 60-year-old gentleman returns for annual follow-up and is doing well. He has no cardiovascular complaints, hospitalizations, chest discomfort, syncope. As reviewed, he has a history of small non-ST elevation AR with heart catheterization revealing completely normal coronary arteries, and hypertrophic hyperdynamic left ventricular function by heart catheterization possibly consistent with hypertrophic cardiomyopathy with evidence of a spade shaped ventricle and severe apicalhypertrophy. He was supposed to have had follow-up echo but this did not proceed. Blood pressure today on 2 different measurements is elevated (off lisinopril) his workout regimen primarily consists of cycling/spinning. He does not perform any weight lifting or isometric exercise * There is no family history of precocious sudden that he is aware of or prior history of hypertrophic cardiomyopathy in any of his family members. * Recommendations: Reassess blood pressure again within the next 4 to 6 weeks for further adjudication on hypertensive management, repeat echocardiogram to assess for left ventricular hypertrophic cardiomyopathy and or outflow tract obstructive phenomenon and follow-up within 1 year otherwise * All the above was discussed with the patient as well as nature of HCM, its potential genetic predisposition and importance of antihypertensive therapy. * CRISTIAN CHAMBERS is being seen for an annual follow-up of. * Patient is a healthy 60-year-old gentleman returns for annual follow-up and is doing well. He has no cardiovascular complaints, hospitalizations, chest discomfort, syncope. As reviewed, he has a history of small non-ST elevation AR with heart catheterization revealing completely normal coronary arteries, and hypertrophic hyperdynamic left ventricular function by heart catheterization possibly consistent with hypertrophic cardiomyopathy with evidence of a spade shaped ventricle and severe apicalhypertrophy. He was supposed to have had follow-up echo but this did not proceed. Blood pressure today on 2 different measurements is elevated (off lisinopril) his workout regimen primarily consists of cycling/spinning. He does not perform any weight lifting or isometric exercise * There is no family history of precocious sudden that he is aware of or prior history of hypertrophic cardiomyopathy in any of his family members. * Recommendations: Reassess blood pressure again within the next 4 to 6 weeks for further adjudication on hypertensive management, repeat echocardiogram to assess for left ventricular hypertrophic cardiomyopathy and or outflow tract obstructive phenomenon and follow-up within 1 year otherwise * All the above was discussed with the patient as well as nature of HCM, its potential genetic predisposition and importance of antihypertensive therapy. * CRISTIAN CHAMBERS is being seen for an annual follow-up of. * Patient is a healthy 60-year-old gentleman returns for annual follow-up and is doing well. He has no cardiovascular complaints, hospitalizations, chest discomfort, syncope. As reviewed, he has a history of small non-ST elevation AR with heart catheterization revealing completely normal coronary arteries, and hypertrophic hyperdynamic left ventricular function by heart catheterization possibly consistent with hypertrophic cardiomyopathy with evidence of a spade shaped ventricle and severe apicalhypertrophy. He was supposed to have had follow-up echo but this did not proceed. Blood pressure today on 2 different measurements is elevated (off lisinopril) his workout regimen primarily consists of cycling/spinning. He does not perform any weight lifting or isometric exercise * There is no family history of precocious sudden that he is aware of or prior history of hypertrophic cardiomyopathy in any of his family members. * Recommendations: Reassess blood pressure again within the next 4 to 6 weeks for further adjudication on hypertensive management, repeat echocardiogram to assess for left ventricular hypertrophic cardiomyopathy and or outflow tract obstructive phenomenon and follow-up within 1 year otherwise * All the above was discussed with the patient as well as nature of HCM, its potential genetic predisposition and importance of antihypertensive therapy. * Doing ok * CRISTIAN CHAMBERS is being seen for a 3 week follow-up of hypertension. * Patient was last evaluated in clinic Dr. Lutz Jan 2021. At that time, blood pressure was elevated. Presents today for repeat BP. * BP at home: does not check * Type of machine: n/a * Time of BP assessment: n/a * Has machine been previously calibrated by medical staff? n/a * Obstructive Sleep Apnea: no prior testing * Prior renal USN: no prior testing * No history of syncope or family history of SCD. * Starting walking daily. * On my check standing R: 160/90 and L: 166/90 * Patient denies any hospitalizations or significant changes to interval medical history since last office follow-up. * Rare occasions of 'little dizzy' and can feel 'heart beat'. Difficult to describes but 'more lightheaded' * I am doing better * CRISTIAN CHAMBERS is being seen for a 3 week follow-up of hypertension. * Patient was last evaluated in clinic myself April 2021. * Changes to medical regimen at that time metoprolol increased 25mg BID, did not start norvasc. * cMRI was not approved to reassess LVOT noted at time of cath July 2018. * Patient has been compliant with changes, denies any side effects. * Overall, feels like he is doing better. * Dizziness has resolved. * BP at home: does not check * Type of machine: n/a * Time of BP assessment: n/a * Has machine been previously calibrated by medical staff? n/a * Standing BP on my check 148/90 * I am ok * CRISTIAN CHAMBERS is being seen for a 1 month follow-up of hypertension. * Patient was last evaluated in clinic myself May 2021. * Changes to medical regimen at that time toprol increased 50mg BID * Patient has been compliant with changes, denies any side effects. * BP at home: 150s * Type of machine: arm * Time of BP assessment: after meds * Has machine been previously calibrated by medical staff? no * Adhering to 2017 AHA/ACC Guideline for the Prevention, Detection, Evaluation, and Management of High Blood Pressure in Adults: * - Encouraged primary lifestyle modifications including consumption of healthy diet, reduced sodium intake, moderation in alcohol intake, weight loss and increased physical activity. * I am doing good * CRISTIAN CHAMBERS is being seen for a 2 month follow-up of hypertension. * Patient was last evaluated in clinic myself June 2021. * Changes to medical regimen at that time norvasc added. * Patient has been compliant with changes, denies any side effects. * BP at home: SBP 130s * Type of machine: arm * Time of BP assessment: after meds * Has machine been previously calibrated by medical staff? no * Otherwise, denies any change to exercise capacity or functional tolerance. * Remains active without exertional complaints. * CRISTIAN CHAMBERS is being seen for an annual follow-up of. * 61-year-old gentleman who returns for annual visit. He has hypertrophic cardiomyopathy with sigmoidseptum with no outflow tract obstruction and persistent mild essential hypertension. 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 * His blood pressure is 144/80 on my recheck. * We did review his echo reports, and in fact confirms that he has a 2 cm septum but no obstructive physiology. 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 * CRISTIAN CHAMBERS is being seen for an annual follow-up of. * 61-year-old gentleman who returns for annual visit. He has hypertrophic cardiomyopathy with sigmoidseptum with no outflow tract obstruction and persistent mild essential hypertension. 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 * His blood pressure is 144/80 on my recheck. * We did review his echo reports, and in fact confirms that he has a 2 cm septum but no obstructive physiology. 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 Chief Complaint and Reason for Visit Chief Complaint Screening Chief Complaint Admit Date Foot Pain December 05, 2024 3 :42pm Reason for Visit Admit Date Chronic anticoagulation December 05 3:42pm Metatarsalgia of left foot December 05, 2024 3:42pm Reason for Referral SpecialtyDiagnoses / ProceduresReferred By ContactReferred To ContactCardiology Diagnoses Cardiomyopathy, hypertrophic (CMS/HCC) LVH (left ventricular hypertrophy) Procedures Echocardiogram Stress Test GA ECHO TTHRC R-T 2D W/WOM-MODE COMPL SPEC&COLR D GA CV STRS TST XERS&/OR RX CONT ECG W/[place] [address] [place] [id number] Referral IDStatusReasonStwashington DateExpiration DateVisits RequestedVisits [id number] Perform Procedure /[id number] / ProceduresReferred By ContactReferred To ContactRadiology Diagnoses LVH (left ventricular hypertrophy) Abnormal echocardiogram Procedures MR cardiac morphology and function w and wo IV contrast Akhil Cadet, MANUFACTURING INDUSTRIAL ENGINEER-CREDIT RATING CHECKER [address] [facility] [address], [facility] [address] [place] [address] Referral IDStatusReasonChesterfield DateExpiration DateVisits RequestedVisits [id number] Perform Procedure /[id number] / ProceduresReferred By ContactReferred To ContactCardiology Diagnoses LVH (left ventricular hypertrophy) Cardiomyopathy, hypertrophic (CMS/HCC) Lightheadedness Procedures Holter Or Event Restaurant Service Manager Nomi Lutz, DO [address] [facility] [address], [address] [place] [address] Referral IDStatusReasonStart DateExpiration DateVisits RequestedVisits [id number] Review/[id number] / ProceduresReferred By ContactReferred To ContactCardiology Diagnoses LVH (left ventricular hypertrophy) Essential hypertension Mixed hyperlipidemia Cardiomyopathy, hypertrophic (CMS/HCC) Procedures Follow Up In Cardiology Nomi Lutz, DO [address] [place] [address] 2, [place] [phone] Akhil Cadet, MANUFACTURING INDUSTRIAL ENGINEER-CREDIT RATING CHECKER [address] [place] [address], [place] [phone] Referral IDStatusReasonStart DateExpiration DateVisits RequestedVisits [id number]/26/20241/25/[id number] / Procedures Referred By ContactReferred To ContactCardiology Diagnoses LVH (left ventricular hypertrophy) Essential hypertension Mixed hyperlipidemia Cardiomyopathy, hypertrophic (CMS/HCC) Procedures Follow Up In Cardiology Nomi Lutz, DO [address] [place] [address] 2, [place] [phone] Nomi Lutz, [place] [address], [place] [phone] Referral IDStatBO.LTStBidModo DateExpiration DateVisits RequestedVisits [id number]/26/20241/25/[id number] / Procedures Referred By ContactReferred To ContactCardiology Diagnoses Hypertrophic cardiomyopathy (CMS/HCC) Procedures Transthoracic Echo (TTE) Complete GA ECHO TRANSTHORC R-T 2D W/WO M-MODE REC F-UP/LMTD GA DOP ECHOCARD COLOR FLOW VELOCITY MAPPING GA DOP ECHOCARD PULSE WAVE W/SPECTRAL F-UP/LMTD STD Nomi Lutz, [address], [place] [phone] Referral IDStatusReasonStart DateExpiration DateVisits RequestedVisits [id number] Perform Procedure Additional Source Comments (unrecognized sect ion and content) No Status Records FoundNo Status Records FoundNo Status Records FoundNo Status Records FoundNo Status Records FoundNo Status Records FoundNo Status Records FoundNo Status Records FoundNo Status Records FoundNo Status Records Found INFORMATION SOURCE (unrecogn ized section and content) DATE CREATED AUTHOR 08/07/2017 [facility] DATE CREATED AUTHOR AUTHOR'S ORGANIZ ATION 02/03/2021 [facility] DATE CREATED AUTHOR AUTHOR'S ORGANIZ ATION 10/09/2021 [facility] DATE CREATED AUTHOR AUTHOR'S ORGANIZ ATION 02/24/2022 [facility] DATE CREATED AUTHOR AUTHOR'S ORGANIZ ATION 12/26/2022 [facility] DATE CREATED AUTHOR AUTHOR'S ORGANIZ ATION 04/13/2023 [facility] DATE CREATED AUTHOR AUTHOR'S ORGANIZ ATION 05/10/2024 [facility] DATE CREATED AUTHOR AUTHOR'S ORGANIZ ATION 05/13/2024 [facility] DATE CREATED AUTHOR AUTHOR'S ORGANIZ ATION 09/25/2024 [facility] DATE CREATED AUTHOR AUTHOR'S ORGANIZ ATION 09/27/2024 [facility] EPIC REASON FOR VISIT (unrecogniz ed section and content) SpecialtyDiagnoses / ProceduresReferred By ContactReferred To ContactCardiology Diagnoses Hypertrophic cardiomyopathy (CMS/HCC) Procedures Transthoracic Echo (TTE) Complete GA ECHO TRANSTHORC R-T 2D W/WO M-MODE REC F-UP/LMTD GA DOP ECHOCARD COLOR FLOW VELOCITY MAPPING GA DOP ECHOCARD PULSE WAVE W/SPECTRAL F-UP/LMTD STD Nomi Lutz, DO [address] [facility] [address], [place] [phone] Referral IDStatusReasonStart DateExpiration DateVisits RequestedVisits [id number] Perform Procedure [id number] ExamTest resultsSpecialtyDiagnoses / ProceduresReferred By ContactReferred To ContactRadiology Diagnoses LVH (left ventricular hypertrophy) Abnormal echocardiogram Procedures MR cardiac morphology and function w and wo IV contrast Akhil Cadet, MANUFACTURING INDUSTRIAL ENGINEER-CREDIT RATING CHECKER [address] [facility] [address], [address] [place] [address] Referral [facility]Status[facility] DateExpiration DateVisits RequestedVisits [id number] Perform Procedure [id number] / ProceduresReferred By ContactReferred To ContactCardiology Diagnoses Cardiomyopathy, hypertrophic (CMS/HCC) LVH (left ventricular hypertrophy) Procedures Echocardiogram Stress Test GA ECHO TTHRC R-T 2D W/WOM-MODE COMPL SPEC&COLR D GA CV STRS TST XERS&/OR RX CONT ECG W/[place] [address] [place] [phone] Referral IDStatusReason[place] DateExpiration DateVisits RequestedVisits [id number] Perform Procedure /[id number] visitSpecialtyDiagnoses / Procedures Referred By ContactReferred To Contact Diagnoses Atrial fibrillation, unspecified type (Multi) Procedures ECG 12 Lead Nomi Lutz DO [address] [facility] [address], [address] [place] [address] Phone: tel: fax: Referral IDStatus[facility] DateExpiration DateVisits RequestedVisits [id number]/13/20251/[id number] Pvhq7sw SpecialtyDiagnoses / ProceduresReferred By ContactReferred To ContactCardiology Diagnoses LVH (left ventricular hypertrophy) Essential hypertension Mixed hyperlipidemia Cardiomyopathy, hypertrophic (Multi) Procedures Follow Up In Cardiology Nomi Lutz DO [address] [facility], [address] [place] [address] Phone: tel: fax: Nomi Lutz DO [address] [facility], [address] [place] [address] Phone: tel: fax: Referral IDStatusReasonStart DateExpiration DateVisits RequestedVisits [id number]/26/20241/[id number] Patient Visit Patient is present to establish care . Patient was referred by Dr. Lutz for afib .SpecialtyDiagnoses / ProceduresReferred By ContactReferred To Contact Cardiology Diagnoses Atrial fibrillation, unspecified type (Multi) Nomi Lutz, DO [address] [facility] [address], [address] [place] [address] Phone: tel: fax: Fozia Ramos MD [address] [facility], [address] [address] Phone: tel: fax: Referral IDStatusReasonStart DateExpiration DateVisits RequestedVisits [id number] Specialty Services Required [id number] AVERAGE EKGSpecialtyDiagnoses / ProceduresReferred By ContactReferred To Contact Diagnoses Atrial fibrillation, unspecified type (Multi) Procedures ECG signal averaged Fozia Ramos MD [address] [facility], [address] [address] Phone: tel: fax: Referral IDStatusReasonStart DateExpiration DateVisits RequestedVisits [id number]/11/20252/11/[id number] CheckReason CommentsFollow-upPt is here today following up after discharge 05/07, post cardioversionReasonCommentsFollow-up4 month Follow up for HypertensionSpecialty Diagnoses / ProceduresReferred By ContactReferred To ContactCardiology Diagnoses Paroxysmal atrial fibrillation (Multi) Procedures Follow Up In Cardiology Nomi Lutz, DO [address] [facility] [address], [address] [place] [address] Phone: tel: fax: Nomi Lutz, DO [address] [facility], [facility] [address] [place] [address] Phone: tel: fax: Referral IDStatusReasonStart DateExpiration DateVisits RequestedVisits [id number]/30/20251/30/[id number] ProblemB/L great fungal nail-possible removalReasonCommentsFollow-upAvulsion follow up, B/L Care Teams (unrecognized sec tion and content) Team Status: Active Member Role Status Dates Julio Fuentes DO Primary Care Provider Active Team Status: Inactive Member Role Status Dates Julio Fuentes DO Primary Care Provider Active Outreach CommunityAttending ProviderActiveTeam MemberRelationshipSpecialtyStart DateEnd Date Julio Fuentes DO [address] [facility] [place] [address] [place] [address] PCP - GeneralInternal Saejbivs53/21/23Team MemberRelationshipSpecialtyStart Date End Date Julio Fuentes DO [address] [facility] [place] [address] [place] [address] PCP - GeneralInternal Stwgcarr01/21/23Team MemberRelationshipSpecialtyStart Date End Date Julio Fuentes DO [address] [facility] [place] [address] [place] [address] PCP - GeneralInternal Oxjtsbhj19/21/23Team MemberRelationshipSpecialtyStart Date End Date Julio Fuentes DO [address] [facility] [place] [address] [place] [address] PCP - GeneralInternal Ckrqhjpn88/21/23Team MemberRelationshipSpecialtyStart Date End Date Julio Fuentes, DO [address] [place] [address] [facility]/24/23Team MemberRelationshipSpecialtyStart Date End Date Julio Fuentes, DO [address] [place] [address] [facility]09/24/23Team MemberRelationshipSpecialtyStart Date End Date Julio Fuentes, DO [address] [place] [address] [facility]09/24/23Team MemberRelationshipSpecialtyStart Date End Date Julio Fuentes DO [address] [place] [address] [facility]09/24/23 Fozia Ramos MD [address] [address] CardiologistElectrophysiology03/13/24Team MemberRelationshipSpecialtyStart Date End Date Julio Fuentes, DO [address] [place] [address] [facility]09/24/23 Fozai Ramos MD [address] [facility] [address] [place] [address] CardiologistElectrophysiology03/13/24Team MemberRelationshipSpecialtyStart Date End Date Julio Fuentes DO [address] [place] [address] PCP - GeneralInternal Medicine09/24/23 Fozia Ramos MD [address] [facility], [address] [place] [address] CardiologistElectrophysiology03/13/24Team MemberRelationshipSpecialtyStart Date End Date Julio Fuentes DO [address] [place] [address] PCP - GeneralInternal Medicine09/24/23 Fozia Ramos MD [address] [facility], [facility] [address] [place] [address] CardiologistElectrophysiology03/13/24 Nery Anderson, BAND BIAS MACHINE OPERATOR Care ManagerCase Management05/09/24Team MemberRelationshipSpecialtyStart DateEnd Date Julio Fuentes DO [address] [place] [address] PCP - GeneralInternal Medicine09/24/23 Fozia Ramos MD [address] [facility], [facility] [address] [place] [address] CardiologistElectrophysiology03/13/24Team MemberRelationshipSpecialtyStart Date End Date Julio Fuentes DO [address] [place] [facility] [place] [id number] PCP - GeneralInternal Medicine09/04/24Team MemberRelationshipSpecialtyStart Date End Date Julio Fuentes DO [address] [place] [address] PCP - GeneralInternal Medicine09/04/24Team MemberRelationshipSpecialtyStart Date End Date Julio Fuentes DO [address] [place] [address] PCP - GeneralInternal Medicine09/24/23 Fozia Ramos MD [address] [facility] Medical Office [facility], [facility] [address] [place] [address] CardiologistElectrophysiology03/13/24Team MemberRelationshipSpecialtyStart Date End Date Julio Fuentes DO [address] [place] [address] PCP - GeneralInternal Medicine09/04/24Team MemberRelationshipSpecialtyStart Date End Date Julio Fuentes DO [address] [place] [address] PCP - GeneralInternal Medicine09/04/24 Team Status: Active Member Role/Relationship Status Dates Julio Fuentes DO Primary Care Provider Active Team Status: Active Member Role/Relationship Status Dates Julio Fuentes DO Primary Care Provider Active Start: September 19, 2024 Patience Florence ProviderActiveStart: September 19, 2024 Team Status: Inactive Member Role/Relationship Status Dates Julio Fuentes DO Primary Care Provider Active Start: December 05, 2024 End: December 05Patience Alejandra ProviderActiveStart: December 05, 2024 End: December 05, 2024 Goals (unrecognized section and content) Goals may be documented in a n alternate section Scheduled Active and Recently Administ ered Medications (unrecognized section and content) Medication Order05/06//// amLODIPine (Norvasc) tablet 10 mg 10 mg, oral, Daily, First dose on Sun05/06/24 at 0900 * 0915 (Given - Provider: Mayte Thorpe RN) * 0914 (Given - Provider: Tierney Carey RN) * 0905 (Given - Provider: Mayte Thorpe RN) apixaban (Eliquis) tablet 5 mg 5 mg, oral, 2 times daily, First dose on Sun05/05/24 at 2100 * 0915 (Given - Provider: Mayte Thorpe RN) * 2016 (Given - Provider: Crys Schmitt, COLETTE) * 0914 (Given - Provider: Tierney Carey RN) * 2035 (Given - Provider: Crys Schmitt, RN) * 09 (Given - Provider: Mayte Thorpe RN) * 2099 (Due) aspirin EC tablet 81 mg 81 mg, oral, Daily, First dose on Sun05/06/24 at 0900, Do not crush, chew, or split. * 0915 (Given - Provider: Mayte Thorpe RN) * 0914 (Given - Provider: Tierney Carey RN) * 0906 (Given - Provider: Mayte Thorpe RN) dofetilide (Tikosyn) capsule 250 mcg 250 mcg, oral, 2 times daily, First dose on Sun05/05/24 at 0930, QTc monitoring required 2-3 hours after each dofetilide dose during initiation or upward titration. Contact provider if QTc exceeds 500 msec on any check., Prescriber certifies: baseline QTc before dofetilide initiation is < 440 msec (or < 500 msec if ventricular conduction abnormality): Yes * 14 (Given - Provider: Mayte Thorpe RN) * 2016 (Given - Provider: Crys Schmitt, COLETTE) * 0914 (Given - Provider: Tierney Carey, COLETTE) * 2035 (Given - Provider: Crys Schmitt, RN) * 09 (Given - Provider: Mayte Thorpe RN) * 2099 (Due) levothyroxine (Synthroid, Levoxyl) tablet 25 mcg 25 mcg, oral, Daily, First dose on Sun05/06/24 at 0600, Enteral feedings are held 1 hour pre and post dose. * 0609 (Given - Provider: Tierney Jefferson RN) * 0604 (Given - Provider: Crys Schmitt, RN) * 0549 (Given - Provider: Crys Schmitt, RN) metoprolol succinate XL (Toprol-XL) 24 hr tablet 50 mg 50 mg, oral, 2 times daily, First dose on Sun05/05/24 at 0930, Do not crush or chew. * 0915 (Given - Provider: Mayte Thorpe, RN) * 2016 (Given - Provider: Crys Schmitt, COLETTE) * 913 (Given - Provider: Tierney Carey, COLETTE) * 2036 (Not Given - Provider: Crys Schmitt RN - Reason: Order parameters not met - Comment: HR 55-58) * 2326 (Given - Provider: Crys Schmitt, COLETTE - Comment: ok to give per Dr. MANE) * 904 (Given - Provider: Mayte Thorpe, COLETTE) * 2099 (Due) potassium chloride CR (Klor-Con M20) ER tablet 20 mEq (COMPLETED) 20 mEq, oral, Once, On Sun05/07/24 at 1000, For 1 dose, Best given with food and plenty of water tominimize gastric irritation. Do not crush or chew. * 1003 (Given - Provider: Tierney Carey, COLETTE) pravastatin (Pravachol) tablet 40 mg 40 mg, oral, Nightly, First dose on Sun05/05/24 at 2100 * 2016 (Given - Provider: Crys Schmitt, COLETTE) * 2035 (Given - Provider: Crys Schmitt, RN) * 2099 (Due) Medication Order05/06//// acetaminophen (Tylenol) tablet 650 mg 650 mg, oral, Every 4 hours PRN, pain mild (1-3), first line, Starting on Sun05/05/24 at 0903, If ordered PRN for pain, nurse is permitted to administer this medication for higher pain scores based on patient preference? Yes docusate sodium (Colace) capsule 100 mg 100 mg, oral, 2 times daily PRN, constipation, first line, Starting on Sun05/05/24 at 0907 melatonin tablet 3 mg 3 mg, oral, Nightly PRN, sleep, Starting on Sun05/05/24 at 0906 FOR RECORDS PERTAINING TO PATIENTS WHO ARE OR HAVE BEEN ENROLLED IN A CHEMICAL DEPENDENCY/SUBSTANCEABUSE PROGRAM, SOME INFORMATION MAY BE OMITTED. This clinical summary was aggregated from multiple sources. Caution should be exercised in using it in the provision of clinical care. This summary normalizes information from multiple sources, and as a consequence, information in this document may materially change the coding, format and clinical context of patient data. In addition, data may be omitted in some cases. CLINICAL DECISIONS SHOULD BE BASED ON THE PRIMARY CLINICAL RECORDS. [facility] [employer] [facility]. provides no warranty or guarantee of the accuracy or completeness of information in this document.
== END 2024-12-15 08:02 | disposition home or self-care (01) ==
PROVIDERS: PCP Internal Medicine; Visit Provider Internal Medicine
DX: M79.672 Pain in left foot (principal)
CPT/HCPCS: 73630